=== PATIENT | male | born 1975 | race Two or more races ===

== ENCOUNTER 2022-10-18 11:44 | Inpatient (IN) | payer OTHER, MEDICAID ==
[~2022-10-18] VITALS: Ht 172.7 cm; Wt 77.1 kg
[2022-10-18 13:24] LABS: Basophils # (auto) 0.1 10 ^3/uL (0-0.2); Basophils % (auto) 0.2 % (0.0-2.0); Eosinophils # (auto) 0 10 ^3/uL (0-0.8); Eosinophils % (auto) 0.1 % (0.0-7.0); Hematocrit 47.2 % (41.0-53.0); Hemoglobin 15.9 g/dL (13.5-17.5); Lymphocytes # (auto) 1.4 10 ^3/uL (0.4-5.4); Lymphocytes % (auto) 5.9 % (10.0-50.0); Mean Corpuscular Hemoglobin 30.1 pg (28.0-32.0); Mean Corpuscular Hgb Conc. 33.6 g/dL (32.0-36.0); Mean Corpuscular Volume 89.6 fL (80.0-100.0); Monocytes # (auto) 1.5 10 ^3/uL (0-1.3); Monocytes % (auto) 6.4 % (0.0-12.0); Neutrophils # (auto) 20.6 10 ^3/uL (1.6-8.6); Neutrophils % (auto) 87.4 % (37.0-80.0); Nucleated Red Blood Cells % 0.1 %; Red Blood Cells 5.27 10^6/uL (4.5-5.90); Red Cell Distribution Width 13.7 % (11.8-14.3); White Blood Cell 23.6 10^3/uL (4.4-10.8)
[2022-10-18 13:36] LABS: Calcium 9.4 mg/dL (8.5-10.1); Potassium 4.2 mmol/L (3.5-5.1)
[2022-10-18 13:40] LABS: BUN/Creatinine Ratio 22.6 (10.0-20.0); Bilirubin, Total 0.5 mg/dL (0.2-1.0); Total Protein 7.4 g/dL (6.4-8.2)
[2022-10-18] MEDS ORDERED: cefTRIAXone 1GM/50ML D5W 50 ML IV ONE (15:45)
[2022-10-18] MEDS ORDERED: SODIUM CHLORIDE 0.9% 1,000 ML IV ONE (15:45)
[2022-10-18] MEDS: SODIUM CHLORIDE 0.9% 1,000 ML IV SCH (16:00)
[2022-10-18] MEDS ORDERED: NITROGLYCERIN 0.4 MG SL TAB SL PRN (16:00)
[2022-10-18] MEDS ORDERED: PANTOPRAZOLE 40 MG/10 ML VIAL INJ IV ONE (16:00)
[2022-10-18] MEDS ORDERED: ACETAMINOPHEN 325 MG TAB PO PRN (16:00)
[2022-10-18] MEDS ORDERED: ONDANSETRON HCL 4 MG/2 ML VIAL IV PRN (16:00)
[2022-10-18] MEDS ORDERED: MORPHINE SULFATE INJ 2 MG/ml SYRG IV PRN (16:00)
[2022-10-18] MEDS ORDERED: ALBUTEROL SULF 2.5 MG/0.5ML(0.5%) NEB SOLN NEB PRN (16:15)
[2022-10-18 17:31] LABS: Urine Amorphous Crystal FEW /hpf (None Seen); Urine Bacteria NONE SEEN /hpf (None Seen); Urine Blood Negative /uL (Negative); Urine Mucus FEW (None Seen); Urine Specific Gravity 1.021 (1.001-1.035); Urine WBC <1 /hpf (0 - 3)
[2022-10-18] MEDS: IPRATROPIUM BROM 0.5 MG/2.5ML INH SOL NEB SCH ×2 (17:43→22:15)
[2022-10-18] MEDS: ALBUTEROL SULF 2.5 MG/0.5ML(0.5%) NEB SOLN NEB SCH ×2 (17:43→22:15)
[2022-10-19] MEDS: ALBUTEROL SULF 2.5 MG/0.5ML(0.5%) NEB SOLN NEB SCH ×6 (01:54→22:33)
[2022-10-19] MEDS: IPRATROPIUM BROM 0.5 MG/2.5ML INH SOL NEB SCH ×6 (01:54→22:33)
[2022-10-19] MEDS: SODIUM CHLORIDE 0.9% 1,000 ML IV SCH ×2 (05:24→18:40)
[2022-10-19 05:59] LABS: Basophils # (auto) 0 10 ^3/uL (0-0.2); Basophils % (auto) 0.1 % (0.0-2.0); Eosinophils # (auto) 0 10 ^3/uL (0-0.8); Hematocrit 46.3 % (41.0-53.0); Hemoglobin 14.9 g/dL (13.5-17.5); Lymphocytes # (auto) 1.7 10 ^3/uL (0.4-5.4); Lymphocytes % (auto) 7.1 % (10.0-50.0); Mean Corpuscular Hemoglobin 30.5 pg (28.0-32.0); Mean Corpuscular Hgb Conc. 32.1 g/dL (32.0-36.0); Mean Corpuscular Volume 94.8 fL (80.0-100.0); Monocytes % (auto) 8.7 % (0.0-12.0); Neutrophils # (auto) 19.9 10 ^3/uL (1.6-8.6); Neutrophils % (auto) 84.1 % (37.0-80.0); Nucleated Red Blood Cells % 0.1 %; Red Blood Cells 4.89 10^6/uL (4.5-5.90); Red Cell Distribution Width 14.5 % (11.8-14.3); White Blood Cell 23.6 10^3/uL (4.4-10.8)
[2022-10-19 07:55] LABS: Potassium 4.2 mmol/L (3.5-5.1)
[2022-10-19 08:07] LABS: Albumin 3.2 g/dL (3.4-5.0); Bilirubin, Total 0.8 mg/dL (0.2-1.0); Calcium 8.6 mg/dL (8.5-10.1); Total Protein 6.6 g/dL (6.4-8.2)
[2022-10-19] MEDS: cefTRIAXone 1GM/50ML D5W 50 ML IV SCH (09:19)
[2022-10-19] MEDS: ENOXAPARIN SOD 40 MG/0.4 ML SYRINGE SC SCH (11:08)
[2022-10-19] MEDS: PANTOPRAZOLE 40 MG/10 ML VIAL INJ IV SCH (11:08)
[2022-10-19 11:49] VITALS: BP 103/67
[2022-10-19] MEDS ORDERED: CLINIMIX PER PHARMACY 0 ML IV SCH (14:45)
[2022-10-19 16:37] LABS: Magnesium 2.2 mg/dL (1.6-2.6); Phosphorus 2.7 mg/dL (2.5-4.90)
[2022-10-19] MEDS: AMINO ACID INFUSION IN D10W 1,000 ML IV NR (20:07)
[2022-10-19 22:30] VITALS: BP 103/66
[2022-10-19] MEDS: ACCU-CHEK COMFORT CURVE STRIP VI SCH (23:37)
[2022-10-19] MEDS: InsuLIN REG 1unit/0.01ml Soln (100units/ml) SC SCH (23:37)
[2022-10-19 23:45] VITALS: BP 103/66
[2022-10-20] MEDS ORDERED: DEXTROSE (50%) 50ML SYRG IV SCH
[2022-10-20] MEDS: IPRATROPIUM BROM 0.5 MG/2.5ML INH SOL NEB SCH ×6 (02:16→22:15)
[2022-10-20] MEDS: ALBUTEROL SULF 2.5 MG/0.5ML(0.5%) NEB SOLN NEB SCH ×6 (02:18→22:16)
[2022-10-20 05:00] VITALS: BP 108/64
[2022-10-20] MEDS: ACCU-CHEK COMFORT CURVE STRIP VI SCH ×4 (05:42→23:27)
[2022-10-20] MEDS: InsuLIN REG 1unit/0.01ml Soln (100units/ml) SC SCH ×4 (05:43→23:26)
[2022-10-20 05:49] LABS: Albumin 2.8 g/dL (3.4-5.0); Calcium 8.4 mg/dL (8.5-10.1); Potassium 3.3 mmol/L (3.5-5.1)
[2022-10-20 05:52] LABS: BUN/Creatinine Ratio 38.2 (10.0-20.0)
[2022-10-20 05:55] LABS: Bilirubin, Total 0.7 mg/dL (0.2-1.0); Total Protein 6.3 g/dL (6.4-8.2)
[2022-10-20 08:00] VITALS: BP 106/72
[2022-10-20 09:00] VITALS: BP 106/72
[2022-10-20] MEDS ORDERED: APIX2.5T PEG (09:06)
[2022-10-20] MEDS: ENOXAPARIN SOD 40 MG/0.4 ML SYRINGE SC SCH (09:06)
[2022-10-20] MEDS: PANTOPRAZOLE 40 MG/10 ML VIAL INJ IV SCH (09:06)
[2022-10-20] MEDS: SODIUM CHLORIDE 0.9% 1,000 ML IV SCH ×2 (09:06→21:20)
[2022-10-20] MEDS: cefTRIAXone 1GM/50ML D5W 50 ML IV SCH (09:06)
[2022-10-20] MEDS ORDERED: POTASSIUM PHOSPHATE 44 MEQ in D5W 5% 250 ML IV ONE (12:00)
[2022-10-20] MEDS ORDERED: SERT-375 GT (12:59)
[2022-10-20] MEDS ORDERED: PROP60CA34 GT (12:59)
[2022-10-20] MEDS ORDERED: DIVA250T12 PO (12:59)
[2022-10-20] MEDS ORDERED: PROM25TA5 PO (12:59)
[2022-10-20] MEDS ORDERED: HAL5T GT (12:59)
[2022-10-20] MEDS ORDERED: PROP60CA34 PO (12:59)
[2022-10-20 13:00] VITALS: BP 121/75
[2022-10-20] MEDS ORDERED: TETR25TA2 GT (13:00)
[2022-10-20 17:00] VITALS: BP 121/81
[2022-10-20] MEDS ORDERED: HALOPERIDOL 1 MG TAB PO PRN (17:00)
[2022-10-20] MEDS ORDERED: PROMETHAZINE HCL 6.25 MG/5 ML ORAL SYRUP PO PRN (17:00)
[2022-10-20] MEDS ORDERED: SERTRALINE HCL 50 MG TAB PO SCH (17:02)
[2022-10-20] MEDS ORDERED: ACETAMINOPHEN 650 mg PER 20.3 mL UD GT PRN (18:00)
[2022-10-20] MEDS ORDERED: PROMETHAZINE HCL 6.25 MG/5 ML ORAL SYRUP GT PRN (18:00)
[2022-10-20] MEDS ORDERED: HALOPERIDOL 1 MG TAB GT PRN (18:00)
[2022-10-20] MEDS: AMINO ACID INFUSION IN D10W 1,000 ML IV NR (20:10)
[2022-10-20 22:00] VITALS: BP 123/81
[2022-10-20] MEDS ORDERED: APIXABAN 5 MG TAB GT SCH (22:00)
[2022-10-20] MEDS: VALPROIC ACID 250 MG/5 ML ORAL SOLN GT SCH (22:00)
[2022-10-20] MEDS: APIXABAN 5 MG TAB GT SCH (22:00)
[2022-10-20] MEDS ORDERED: PROPRANOLOL HCL 20 MG TAB GT SCH (22:00)
[2022-10-20] MEDS: PROPRANOLOL HCL 20 MG TAB GT SCH (23:30)
[2022-10-21 05:00] VITALS: BP 107/75
[2022-10-21] MEDS: ACCU-CHEK COMFORT CURVE STRIP VI SCH ×4 (05:49→23:40)
[2022-10-21] MEDS: InsuLIN REG 1unit/0.01ml Soln (100units/ml) SC SCH ×4 (05:50→23:40)
[2022-10-21] MEDS: IPRATROPIUM BROM 0.5 MG/2.5ML INH SOL NEB SCH ×5 (06:24→22:04)
[2022-10-21] MEDS: ALBUTEROL SULF 2.5 MG/0.5ML(0.5%) NEB SOLN NEB SCH ×5 (06:24→22:04)
[2022-10-21 06:58] LABS: Potassium 3.4 mmol/L (3.5-5.1)
[2022-10-21 07:10] LABS: BUN/Creatinine Ratio 28.6 (10.0-20.0); Bilirubin, Total 0.7 mg/dL (0.2-1.0); Calcium 8.6 mg/dL (8.5-10.1); Magnesium 2.1 mg/dL (1.6-2.6); Phosphorus 2.4 mg/dL (2.5-4.90); Total Protein 6.6 g/dL (6.4-8.2)
[2022-10-21 09:00] VITALS: BP 118/77
[2022-10-21] MEDS: cefTRIAXone 1GM/50ML D5W 50 ML IV SCH (10:24)
[2022-10-21] MEDS: SODIUM CHLORIDE 0.9% 1,000 ML IV SCH (10:40)
[2022-10-21] MEDS: PROPRANOLOL HCL 20 MG TAB GT SCH ×2 (11:28→21:21)
[2022-10-21] MEDS: VALPROIC ACID 250 MG/5 ML ORAL SOLN GT SCH ×2 (11:28→21:20)
[2022-10-21] MEDS: PANTOPRAZOLE 40 MG/10 ML VIAL INJ IV SCH (11:28)
[2022-10-21] MEDS: SERTRALINE HCL 50 MG TAB GT SCH (11:29)
[2022-10-21] MEDS: APIXABAN 5 MG TAB GT SCH ×2 (11:29→21:20)
[2022-10-21] MEDS ORDERED: POTASSIUM PHOSPHATE 44 MEQ in D5W 5% 250 ML IV ONE (11:30)
[2022-10-21] MEDS: AZITHROMYCIN 500MG/ 250ML 250 ML IV SCH (12:00)
[2022-10-21 12:48] LABS: Basophils # (auto) 0.1 10 ^3/uL (0-0.2); Eosinophils # (auto) 0.1 10 ^3/uL (0-0.8); Eosinophils % (auto) 1.3 % (0.0-7.0); Hematocrit 37.6 % (41.0-53.0); Hemoglobin 12.5 g/dL (13.5-17.5); Lymphocytes # (auto) 1.8 10 ^3/uL (0.4-5.4); Lymphocytes % (auto) 22.3 % (10.0-50.0); Mean Corpuscular Hgb Conc. 33.3 g/dL (32.0-36.0); Mean Corpuscular Volume 90.2 fL (80.0-100.0); Monocytes # (auto) 0.9 10 ^3/uL (0-1.3); Monocytes % (auto) 11.8 % (0.0-12.0); Neutrophils % (auto) 63.6 % (37.0-80.0); Nucleated Red Blood Cells % 0.1 %; Red Blood Cells 4.17 10^6/uL (4.5-5.90); Red Cell Distribution Width 13.1 % (11.8-14.3); White Blood Cell 7.9 10^3/uL (4.4-10.8)
[2022-10-21 13:15] VITALS: BP 157/44
[2022-10-21 17:10] VITALS: BP 133/86
[2022-10-21] MEDS: AMINO ACID INFUSION IN D10W 1,000 ML IV NR (19:13)
[2022-10-21 21:31] VITALS: BP 122/74
[2022-10-22 04:00] VITALS: BP 129/92
[2022-10-22 05:00] VITALS: BP 126/72
[2022-10-22] MEDS: InsuLIN REG 1unit/0.01ml Soln (100units/ml) SC SCH ×3 (05:39→18:00)
[2022-10-22] MEDS: ACCU-CHEK COMFORT CURVE STRIP VI SCH (05:39)
[2022-10-22 06:08] LABS: Basophils # (auto) 0 10 ^3/uL (0-0.2); Basophils % (auto) 0.3 % (0.0-2.0); Eosinophils # (auto) 0.1 10 ^3/uL (0-0.8); Eosinophils % (auto) 1.3 % (0.0-7.0); Hemoglobin 13.5 g/dL (13.5-17.5); Lymphocytes # (auto) 1.8 10 ^3/uL (0.4-5.4); Lymphocytes % (auto) 25.3 % (10.0-50.0); Mean Corpuscular Hemoglobin 30.6 pg (28.0-32.0); Mean Corpuscular Hgb Conc. 33.7 g/dL (32.0-36.0); Mean Corpuscular Volume 90.9 fL (80.0-100.0); Monocytes # (auto) 0.9 10 ^3/uL (0-1.3); Monocytes % (auto) 11.8 % (0.0-12.0); Neutrophils # (auto) 4.5 10 ^3/uL (1.6-8.6); Neutrophils % (auto) 61.3 % (37.0-80.0); Nucleated Red Blood Cells % 0.1 %; Red Cell Distribution Width 12.8 % (11.8-14.3); White Blood Cell 7.3 10^3/uL (4.4-10.8)
[2022-10-22 06:38] LABS: Albumin 2.8 g/dL (3.4-5.0); Calcium 8.1 mg/dL (8.5-10.1); Magnesium 2.1 mg/dL (1.6-2.6); Potassium 3.5 mmol/L (3.5-5.1)
[2022-10-22 06:41] LABS: Phosphorus 2.6 mg/dL (2.5-4.90)
[2022-10-22] MEDS: IPRATROPIUM BROM 0.5 MG/2.5ML INH SOL NEB SCH ×5 (07:19→22:24)
[2022-10-22] MEDS: ALBUTEROL SULF 2.5 MG/0.5ML(0.5%) NEB SOLN NEB SCH ×5 (07:19→22:24)
[2022-10-22 08:20] VITALS: BP 103/72
[2022-10-22] MEDS: cefTRIAXone 1GM/50ML D5W 50 ML IV SCH (09:21)
[2022-10-22] MEDS: VALPROIC ACID 250 MG/5 ML ORAL SOLN GT SCH ×2 (09:21→21:52)
[2022-10-22] MEDS: SERTRALINE HCL 50 MG TAB GT SCH (09:22)
[2022-10-22] MEDS: PANTOPRAZOLE 40 MG/10 ML VIAL INJ IV SCH (09:22)
[2022-10-22] MEDS: PROPRANOLOL HCL 20 MG TAB GT SCH ×2 (09:23→21:58)
[2022-10-22] MEDS: APIXABAN 5 MG TAB GT SCH ×2 (09:23→21:54)
[2022-10-22] MEDS: AZITHROMYCIN 500MG/ 250ML 250 ML IV SCH (09:23)
[2022-10-22 12:10] VITALS: BP 118/77
[2022-10-22] MEDS ORDERED: POTASSIUM PHOSPHATE 44 MEQ in D5W 5% 250 ML IV ONE (12:30)
[2022-10-22] MEDS: SODIUM CHLORIDE 0.9% 1,000 ML IV SCH ×2 (13:40)
[2022-10-22 15:26] VITALS: BP 118/77
[2022-10-22 15:33] LABS: Folate (Folic Acid) 21.44 ng/mL (5.38-24)
[2022-10-22 16:05] VITALS: BP 107/66
[2022-10-22] MEDS: AMINO ACID INFUSION IN D10W 1,000 ML IV NR ×3 (19:27→21:00)
[2022-10-23] MEDS: ACCU-CHEK COMFORT CURVE STRIP VI SCH ×6 (00:14→18:34)
[2022-10-23] MEDS: SODIUM CHLORIDE 0.9% 1,000 ML IV SCH ×2 (02:40→18:33)
[2022-10-23] MEDS: InsuLIN REG 1unit/0.01ml Soln (100units/ml) SC SCH ×4 (05:44→18:00)
[2022-10-23] MEDS: IPRATROPIUM BROM 0.5 MG/2.5ML INH SOL NEB SCH ×5 (05:57→22:06)
[2022-10-23] MEDS: ALBUTEROL SULF 2.5 MG/0.5ML(0.5%) NEB SOLN NEB SCH ×5 (05:57→22:06)
[2022-10-23 06:32] LABS: Basophils # (auto) 0 10 ^3/uL (0-0.2); Basophils % (auto) 0.6 % (0.0-2.0); Eosinophils # (auto) 0.2 10 ^3/uL (0-0.8); Eosinophils % (auto) 2.6 % (0.0-7.0); Hemoglobin 12.9 g/dL (13.5-17.5); Lymphocytes # (auto) 2.1 10 ^3/uL (0.4-5.4); Lymphocytes % (auto) 33.7 % (10.0-50.0); Mean Corpuscular Hemoglobin 29.9 pg (28.0-32.0); Mean Corpuscular Hgb Conc. 33.1 g/dL (32.0-36.0); Mean Corpuscular Volume 90.4 fL (80.0-100.0); Monocytes # (auto) 0.9 10 ^3/uL (0-1.3); Monocytes % (auto) 15.2 % (0.0-12.0); Neutrophils % (auto) 47.9 % (37.0-80.0); Nucleated Red Blood Cells % 0.1 %; Red Blood Cells 4.31 10^6/uL (4.5-5.90); White Blood Cell 6.2 10^3/uL (4.4-10.8)
[2022-10-23 06:48] LABS: Albumin 2.7 g/dL (3.4-5.0); Calcium 8.3 mg/dL (8.5-10.1); Potassium 3.3 mmol/L (3.5-5.1)
[2022-10-23 06:51] LABS: BUN/Creatinine Ratio 23.3 (10.0-20.0); Bilirubin, Total 0.6 mg/dL (0.2-1.0); Phosphorus 2.3 mg/dL (2.5-4.90); Total Protein 6.3 g/dL (6.4-8.2)
[2022-10-23 09:00] VITALS: BP 135/72
[2022-10-23] MEDS: PANTOPRAZOLE 40 MG/10 ML VIAL INJ IV SCH (10:07)
[2022-10-23] MEDS: VALPROIC ACID 250 MG/5 ML ORAL SOLN GT SCH ×2 (10:07→21:10)
[2022-10-23] MEDS: cefTRIAXone 1GM/50ML D5W 50 ML IV SCH (10:08)
[2022-10-23] MEDS: AZITHROMYCIN 500MG/ 250ML 250 ML IV SCH (10:09)
[2022-10-23] MEDS: SERTRALINE HCL 50 MG TAB GT SCH (10:09)
[2022-10-23] MEDS: APIXABAN 5 MG TAB GT SCH ×2 (10:10→21:10)
[2022-10-23] MEDS: PROPRANOLOL HCL 20 MG TAB GT SCH ×2 (10:10→21:18)
[2022-10-23 13:00] VITALS: BP 111/71
[2022-10-23] MEDS ORDERED: POTASSIUM PHOSPHATE 44 MEQ in D5W 5% 250 ML IV ONE (13:45)
[2022-10-23 17:00] VITALS: BP 124/76
[2022-10-23] MEDS: AMINO ACID INFUSION IN D10W 1,000 ML IV NR (19:35)
[2022-10-23 22:00] VITALS: BP 141/77
[2022-10-24] MEDS: ACCU-CHEK COMFORT CURVE STRIP VI SCH ×3 (00:42→12:44)
[2022-10-24 05:00] VITALS: BP 119/83
[2022-10-24] MEDS: InsuLIN REG 1unit/0.01ml Soln (100units/ml) SC SCH ×3 (05:24→12:00)
[2022-10-24] MEDS: SODIUM CHLORIDE 0.9% 1,000 ML IV SCH (05:41)
[2022-10-24 06:06] LABS: Albumin 3.1 g/dL (3.4-5.0); Calcium 8.8 mg/dL (8.5-10.1); Magnesium 1.9 mg/dL (1.6-2.6); Potassium 3.4 mmol/L (3.5-5.1)
[2022-10-24 06:08] LABS: BUN/Creatinine Ratio 21.4 (10.0-20.0); Phosphorus 2.6 mg/dL (2.5-4.90)
[2022-10-24] MEDS: IPRATROPIUM BROM 0.5 MG/2.5ML INH SOL NEB SCH ×5 (06:42→22:00)
[2022-10-24] MEDS: ALBUTEROL SULF 2.5 MG/0.5ML(0.5%) NEB SOLN NEB SCH ×5 (06:43→22:00)
[2022-10-24 09:00] VITALS: BP 119/62
[2022-10-24] MEDS ORDERED: Jevity 1.2 Cal/Fiber 1 Liter GT SCH (09:30)
[2022-10-24] MEDS: cefTRIAXone 1GM/50ML D5W 50 ML IV SCH (10:35)
[2022-10-24] MEDS: PROPRANOLOL HCL 20 MG TAB GT SCH ×2 (10:35→22:14)
[2022-10-24] MEDS: AZITHROMYCIN 500MG/ 250ML 250 ML IV SCH (10:37)
[2022-10-24] MEDS: VALPROIC ACID 250 MG/5 ML ORAL SOLN GT SCH ×2 (10:37→22:11)
[2022-10-24] MEDS: PANTOPRAZOLE 40 MG/10 ML VIAL INJ IV SCH (10:37)
[2022-10-24] MEDS: APIXABAN 5 MG TAB GT SCH ×2 (10:37→22:12)
[2022-10-24] MEDS: SERTRALINE HCL 50 MG TAB GT SCH (10:37)
[2022-10-24] MEDS: FREE WATER GT SCH ×2 (12:43→17:45)
[2022-10-24 13:00] VITALS: BP 116/75
[2022-10-24 17:00] VITALS: BP 116/76
[2022-10-24] MEDS: AMINO ACID INFUSION IN D10W 1,000 ML IV NR (19:38)
[2022-10-24 22:00] VITALS: BP 126/76
[2022-10-25] MEDS: FREE WATER GT SCH ×3 (01:23→12:02)
[2022-10-25 05:00] VITALS: BP 109/74
[2022-10-25] MEDS: ALBUTEROL SULF 2.5 MG/0.5ML(0.5%) NEB SOLN NEB SCH ×4 (07:06→15:00)
[2022-10-25] MEDS: IPRATROPIUM BROM 0.5 MG/2.5ML INH SOL NEB SCH ×4 (07:06→15:00)
[2022-10-25] MEDS: cefTRIAXone 1GM/50ML D5W 50 ML IV SCH (08:52)
[2022-10-25 09:00] VITALS: BP 110/79
[2022-10-25] MEDS: VALPROIC ACID 250 MG/5 ML ORAL SOLN GT SCH (09:54)
[2022-10-25] MEDS: SERTRALINE HCL 50 MG TAB GT SCH (09:54)
[2022-10-25] MEDS: PANTOPRAZOLE 40 MG/10 ML VIAL INJ IV SCH (09:54)
[2022-10-25] MEDS: AZITHROMYCIN 500MG/ 250ML 250 ML IV SCH (09:54)
[2022-10-25] MEDS: APIXABAN 5 MG TAB GT SCH (09:54)
[2022-10-25] MEDS: PROPRANOLOL HCL 20 MG TAB GT SCH (09:55)
[2022-10-25] MEDS ORDERED: AZIT250T8 PO (11:00)
[2022-10-25 13:00] VITALS: BP_SYST 110; BP_SYST 99; BP_DIAS 67; BP_DIAS 79
== END 2022-10-25 15:15 | disposition home health service (06) | DRG 871 ==
LOC: ER 11:44 → EDBD 11:44 → TELE 16:06 → TELE-CENTR 10-19 22:30
PROVIDERS: ADMIT Nurse Practitioner Family; ATTEND Nurse Practitioner Acute Care
DX: A41.9 Sepsis, unspecified organism (principal); E43 Unspecified severe protein-calorie malnutrition; G93.41 Metabolic encephalopathy; J15.6 Pneumonia due to other Gram-negative bacteria; G10 Huntington's disease; K92.2 Gastrointestinal hemorrhage, unspecified; E87.6 Hypokalemia; Z68.25 Body mass index [BMI] 25.0-25.9, adult
CPT/HCPCS: 36415; 71045; 74176; 80053; 80069; 80164; 81001; 82306; 82607; 82746; 82962; 83605; 83735; 83880; 84100; 85025; 87040; 87081; 87086; 87088; 87186; 93005; 94640; 96365; 96372; 96375; C9113; G0378; J0696; J2405; J7060

== ENCOUNTER 2022-11-06 07:57 | Inpatient (IN) | payer OTHER, MEDICAID ==
[2022-11-06] VITALS (54 sets, daily range): BP systolic 83–140; BP diastolic 54–81
[~2022-11-06] VITALS: Ht 172.7 cm; Wt 67.0 kg
[~2022-11-06 07:57] MED LIST: APIX2.5T PEG; AZIT-81 PO; DIVA250T12 PO; HAL5T GT; PROM25TA10 PO; PROP60CA34 GT; PROP60CA34 PO; SERT-375 GT; TETR25TA GT
[2022-11-06] MEDS ORDERED: ETOMIDATE (2MG/ML) 20ML VIAL IV ONE ×3 (08:26→08:45)
[2022-11-06] MEDS ORDERED: SUCCINYLCHOLINE CHLORIDE 20 MG/ML 10ML VIAL IV ONE ×2 (08:27→08:45)
[2022-11-06] MEDS ORDERED: MIDAZOLAM DRIP 50 mg/50mL 50 ML IV ONE (08:39)
[2022-11-06] MEDS: MIDAZOLAM DRIP 50 mg/50mL 50 ML IV SCH ×2 (08:40→16:18)
[2022-11-06] MEDS ORDERED: SODIUM CHLORIDE 0.9% 1,000 ML IV ONE ×2 (08:45)
[2022-11-06] MEDS ORDERED: PIPERACILLIN-TAZOB 3.375GM 100 ML IV ONE (08:45)
[2022-11-06] MEDS ORDERED: SODIUM CHLORIDE 0.9% 2,300 ML IV ONE (08:45)
[2022-11-06] MEDS ORDERED: AZITHROMYCIN 500MG/ 250ML 250 ML IV ONE (08:45)
[2022-11-06] MEDS ORDERED: fentaNYL Drip 2500mCg/250mlNS 250 ML IV ONE (08:53)
[2022-11-06] MEDS: fentaNYL Drip 2500mCg/250mlNS 250 ML IV SCH (08:59)
[2022-11-06 09:04] LABS: Hematocrit 44.4 % (41.0-53.0); Hemoglobin 15.4 g/dL (13.5-17.5); Mean Corpuscular Hemoglobin 30.6 pg (28.0-32.0); Mean Corpuscular Hgb Conc. 34.7 g/dL (32.0-36.0); Mean Corpuscular Volume 88.1 fL (80.0-100.0); Red Blood Cells 5.05 10^6/uL (4.5-5.90); Red Cell Distribution Width 13.6 % (11.8-14.3); White Blood Cell 25.9 10^3/uL (4.4-10.8)
[2022-11-06 09:07] LABS: Band Neutrophils % (manual) 0; Basophils % (manual) 0 (0.0-2.0); Blast Cells 0; Eosinophils % (manual) 0 (0-7); Metamyelocytes % 0; Myelocytes % 0; Promyelocytes % 0; Reactive Lymphocytes 0
[2022-11-06] MEDS ORDERED: IOHEXOL 350 MG/ML 100ML IJ ONE (09:07)
[2022-11-06 09:13] LABS: INR 1.04 (0.9-1.15); Partial Thromboplastin Time 26.9 sec (24.6-33.4)
[2022-11-06] MEDS ORDERED: ACETAMINOPHEN 650 MG RECT SUPP PR ONE (09:15)
[2022-11-06 09:16] LABS: Lymphocytes % (manual) 2 (10.0-50.0); Monocytes % (manual) 3 (0-12)
[2022-11-06 09:27] LABS: Albumin 3.8 g/dL (3.4-5.0); Potassium 3.8 mmol/L (3.5-5.1)
[2022-11-06 09:30] LABS: Bilirubin, Total 0.7 mg/dL (0.2-1.0); Total Protein 7.6 g/dL (6.4-8.2)
[2022-11-06 09:57] LABS: Urine Bacteria FEW /hpf (None Seen); Urine Blood Negative /uL (Negative); Urine Mucus FEW (None Seen); Urine Specific Gravity 1.024 (1.001-1.035); Urine WBC 2 /hpf (0 - 3)
[2022-11-06] MEDS ORDERED: PANTOPRAZOLE 80 MG in SODIUM CHL 0.9% 100 ML IV ONE (10:30)
[2022-11-06] MEDS ORDERED: PANTOPRAZOLE 40mg/50ML NS AE 50 ML IV SCH (10:30)
[2022-11-06] MEDS: NOREPINEPHRINE 8 MG/250ML KIT 250 ML IV SCH (12:00)
[2022-11-06] MEDS ORDERED: NOREPINEPHRINE 8 MG/250ML KIT 250 ML IV ONE (12:06)
[2022-11-06 12:21] LABS: Lactic Acid w/Reflex 2.7 mmol/L (0.4-2.0)
[2022-11-06] MEDS ORDERED: HALOPERIDOL 1 MG TAB GT PRN (12:45)
[2022-11-06] MEDS: metroNIDAZOLE 500MG/100ML 100 ML IV SCH ×2 (13:14→20:52)
[2022-11-06] MEDS ORDERED: PANTOPRAZOLE 40mg/50ML NS AE 50 ML IV ONE (13:15)
[2022-11-06] MEDS: OCTREOTIDE ACETATE 500 MCG in SODIUM CHL 0.9% 99 ML IV SCH ×2 (13:48→22:18)
[2022-11-06 14:07] LABS: Hematocrit 39.5 % (41.0-53.0); Hemoglobin 13.3 g/dL (13.5-17.5)
[2022-11-06] MEDS: CEFEPIME 1GM/ 50ML 50 ML IV SCH ×2 (16:07→22:12)
[2022-11-06] MEDS: PROPOFOL 100 ML IV SCH (17:49)
[2022-11-06] MEDS: PANTOPRAZOLE 40mg/50ML NS AE 50 ML IV SCH (19:15)
[2022-11-06 21:18] LABS: Hematocrit 37.2 % (41.0-53.0); Hemoglobin 12.6 g/dL (13.5-17.5)
[2022-11-06] MEDS: PROPRANOLOL HCL 20 MG TAB GT SCH (21:45)
[2022-11-06] MEDS: VALPROIC ACID 250 MG/5 ML ORAL SOLN GT SCH (21:49)
[2022-11-06] MEDS ORDERED: PATIENTS OWN MEDICATION (Divalproex Sodium 250 MG) PO SCH (22:00)
[2022-11-07] VITALS (105 sets, daily range): BP systolic 86–146; BP diastolic 54–87
[2022-11-07] MEDS: PANTOPRAZOLE 40mg/50ML NS AE 50 ML IV SCH ×4 (00:02→14:20)
[2022-11-07] MEDS: MIDAZOLAM DRIP 50 mg/50mL 50 ML IV SCH ×3 (01:10→18:43)
[2022-11-07] MEDS: fentaNYL Drip 2500mCg/250mlNS 250 ML IV SCH (02:08)
[2022-11-07 04:18] LABS: Basophils # (auto) 0.1 10 ^3/uL (0-0.2); Basophils % (auto) 0.7 % (0.0-2.0); Eosinophils # (auto) 0.1 10 ^3/uL (0-0.8); Eosinophils % (auto) 1.2 % (0.0-7.0); Hematocrit 37.1 % (41.0-53.0); Hemoglobin 12.8 g/dL (13.5-17.5); Lymphocytes # (auto) 2.3 10 ^3/uL (0.4-5.4); Lymphocytes % (auto) 19.1 % (10.0-50.0); Mean Corpuscular Hemoglobin 31.3 pg (28.0-32.0); Mean Corpuscular Hgb Conc. 34.5 g/dL (32.0-36.0); Mean Corpuscular Volume 90.8 fL (80.0-100.0); Monocytes # (auto) 1.3 10 ^3/uL (0-1.3); Monocytes % (auto) 10.9 % (0.0-12.0); Neutrophils # (auto) 8.1 10 ^3/uL (1.6-8.6); Neutrophils % (auto) 68.1 % (37.0-80.0); Nucleated Red Blood Cells % 0.1 %; Red Blood Cells 4.08 10^6/uL (4.5-5.90); Red Cell Distribution Width 13.9 % (11.8-14.3); White Blood Cell 11.9 10^3/uL (4.4-10.8)
[2022-11-07 04:29] LABS: Albumin 3.1 g/dL (3.4-5.0); Calcium 8.2 mg/dL (8.5-10.1); Potassium 3.8 mmol/L (3.5-5.1)
[2022-11-07 04:32] LABS: Total Protein 5.8 g/dL (6.4-8.2)
[2022-11-07] MEDS: metroNIDAZOLE 500MG/100ML 100 ML IV SCH ×3 (05:35→21:11)
[2022-11-07] MEDS: NOREPINEPHRINE 8 MG/250ML KIT 250 ML IV SCH (05:48)
[2022-11-07] MEDS: CEFEPIME 1GM/ 50ML 50 ML IV SCH (06:42)
[2022-11-07] MEDS: OCTREOTIDE ACETATE 500 MCG in SODIUM CHL 0.9% 99 ML IV SCH (08:05)
[2022-11-07] MEDS ORDERED: EPINEPHrine HCL 1 MG/10 ML SYRG ONE (08:45)
[2022-11-07] MEDS: SERTRALINE HCL 50 MG TAB GT SCH (10:00)
[2022-11-07] MEDS: PROPRANOLOL HCL 20 MG TAB GT SCH ×2 (10:00→22:00)
[2022-11-07] MEDS ORDERED: PATIENTS OWN MEDICATION (Propranolol Hcl (Inderal La) 1 CAP) PO SCH (10:00)
[2022-11-07] MEDS ORDERED: PATIENTS OWN MEDICATION (Propranolol Hcl (Inderal La) 1 CAP) GT SCH (10:00)
[2022-11-07] MEDS: VALPROIC ACID 250 MG/5 ML ORAL SOLN GT SCH ×2 (10:00→22:38)
[2022-11-07] MEDS ORDERED: SERTRALINE HCL 50 MG TAB PO SCH (10:00)
[2022-11-07 10:08] LABS: Hemoglobin 12.9 g/dL (13.5-17.5)
[2022-11-07] MEDS: PROPOFOL 100 ML IV SCH (13:15)
[2022-11-07] MEDS ORDERED: ACETAMINOPHEN 650 MG RECT SUPP PR ONE (13:45)
[2022-11-07] MEDS ORDERED: ROCURONIUM 10MG/ML 10ML VIAL IV ONE (16:56)
[2022-11-07] MEDS: PANTOPRAZOLE 40 MG/10 ML VIAL INJ IV SCH (22:26)
[2022-11-08] VITALS (104 sets, daily range): BP systolic 83–159; BP diastolic 2–137
[2022-11-08 04:26] LABS: Basophils # (auto) 0.1 10 ^3/uL (0-0.2); Basophils % (auto) 0.7 % (0.0-2.0); Eosinophils # (auto) 0.2 10 ^3/uL (0-0.8); Hematocrit 34.8 % (41.0-53.0); Hemoglobin 12.4 g/dL (13.5-17.5); Lymphocytes # (auto) 1.3 10 ^3/uL (0.4-5.4); Lymphocytes % (auto) 12.4 % (10.0-50.0); Mean Corpuscular Hemoglobin 32.3 pg (28.0-32.0); Mean Corpuscular Hgb Conc. 35.6 g/dL (32.0-36.0); Mean Corpuscular Volume 90.5 fL (80.0-100.0); Monocytes # (auto) 0.9 10 ^3/uL (0-1.3); Monocytes % (auto) 9.1 % (0.0-12.0); Neutrophils # (auto) 7.7 10 ^3/uL (1.6-8.6); Neutrophils % (auto) 75.8 % (37.0-80.0); Red Blood Cells 3.85 10^6/uL (4.5-5.90); White Blood Cell 10.2 10^3/uL (4.4-10.8)
[2022-11-08] MEDS: metroNIDAZOLE 500MG/100ML 100 ML IV SCH (05:20)
[2022-11-08 08:01] LABS: Potassium 3.4 mmol/L (3.5-5.1)
[2022-11-08 08:12] LABS: BUN/Creatinine Ratio 23.5 (10.0-20.0); Calcium 8.2 mg/dL (8.5-10.1)
[2022-11-08] MEDS: fentaNYL Drip 2500mCg/250mlNS 250 ML IV SCH ×2 (09:00→13:15)
[2022-11-08] MEDS: VALPROIC ACID 250 MG/5 ML ORAL SOLN GT SCH ×2 (09:35→21:32)
[2022-11-08] MEDS: PANTOPRAZOLE 40 MG/10 ML VIAL INJ IV SCH ×2 (09:35→21:32)
[2022-11-08] MEDS: PROPRANOLOL HCL 20 MG TAB GT SCH ×2 (09:35→21:48)
[2022-11-08] MEDS: SERTRALINE HCL 50 MG TAB GT SCH (09:36)
[2022-11-08] MEDS: ACETAMINOPHEN 650 mg PER 20.3 mL UD GT PRN (10:36)
[2022-11-08] MEDS ORDERED: VANCOMYCIN PER PHARMACY 0 MG IV SCH (11:30)
[2022-11-08] MEDS ORDERED: POTASSIUM CHL 20MEQ/100ML 100 ML IV ONE (11:45)
[2022-11-08] MEDS: NOREPINEPHRINE 8 MG/250ML KIT 250 ML IV SCH (12:00)
[2022-11-08] MEDS ORDERED: ERTAPENEM SOD INJ 1 GM in SODIUM CHL 0.9% 50 ML IV ONE (12:00)
[2022-11-08] MEDS ORDERED: VANCOMYCIN 1GM/250ML 250 ML IV ONE (12:30)
[2022-11-08] MEDS: PROPOFOL 100 ML IV SCH (13:15)
[2022-11-08] MEDS ORDERED: MEROPENEM 1GM IVPB 100 ML IV ONE (15:00)
[2022-11-08] MEDS: VANCOMYCIN 1GM/250ML 250 ML IV SCH (21:10)
[2022-11-08] MEDS: MEROPENEM 1GM IVPB 100 ML IV SCH (22:26)
[2022-11-09] VITALS (105 sets, daily range): BP systolic 81–134; BP diastolic 52–81
[2022-11-09 04:18] LABS: Basophils # (auto) 0.1 10 ^3/uL (0-0.2); Basophils % (auto) 0.8 % (0.0-2.0); Eosinophils # (auto) 0.2 10 ^3/uL (0-0.8); Eosinophils % (auto) 2.8 % (0.0-7.0); Hematocrit 33.9 % (41.0-53.0); Hemoglobin 11.8 g/dL (13.5-17.5); Lymphocytes # (auto) 1.2 10 ^3/uL (0.4-5.4); Mean Corpuscular Hemoglobin 31.3 pg (28.0-32.0); Mean Corpuscular Hgb Conc. 34.9 g/dL (32.0-36.0); Mean Corpuscular Volume 89.8 fL (80.0-100.0); Monocytes # (auto) 0.6 10 ^3/uL (0-1.3); Monocytes % (auto) 9.5 % (0.0-12.0); Neutrophils # (auto) 4.6 10 ^3/uL (1.6-8.6); Neutrophils % (auto) 68.9 % (37.0-80.0); Red Blood Cells 3.78 10^6/uL (4.5-5.90); Red Cell Distribution Width 13.7 % (11.8-14.3); White Blood Cell 6.7 10^3/uL (4.4-10.8)
[2022-11-09 04:45] LABS: Calcium 8.5 mg/dL (8.5-10.1)
[2022-11-09 04:47] LABS: BUN/Creatinine Ratio 47.6 (10.0-20.0)
[2022-11-09 04:59] LABS: Potassium 2.7 mmol/L (3.5-5.1)
[2022-11-09] MEDS: MIDAZOLAM DRIP 50 mg/50mL 50 ML IV SCH (05:23)
[2022-11-09] MEDS: MEROPENEM 1GM IVPB 100 ML IV SCH ×3 (05:25→22:29)
[2022-11-09] MEDS: POTASSIUM CHL 20MEQ/100ML 100 ML IV SCH ×3 (06:18→09:30)
[2022-11-09] MEDS: VANCOMYCIN 1GM/250ML 250 ML IV SCH ×2 (08:35→22:22)
[2022-11-09] MEDS: PANTOPRAZOLE 40 MG/10 ML VIAL INJ IV SCH ×2 (09:30→22:30)
[2022-11-09] MEDS: VALPROIC ACID 250 MG/5 ML ORAL SOLN GT SCH ×2 (09:30→22:29)
[2022-11-09] MEDS: PROPRANOLOL HCL 20 MG TAB GT SCH ×2 (09:31→22:00)
[2022-11-09] MEDS: SERTRALINE HCL 50 MG TAB GT SCH (10:00)
[2022-11-09] MEDS ORDERED: ERTAPENEM SOD INJ 1 GM in SODIUM CHL 0.9% 50 ML IV SCH (10:00)
[2022-11-09] MEDS: NOREPINEPHRINE 8 MG/250ML KIT 250 ML IV SCH (12:00)
[2022-11-09] MEDS: SODIUM CHLORIDE 0.9% 1,000 ML IV SCH ×2 (13:04→23:10)
[2022-11-09] MEDS: PROPOFOL 100 ML IV SCH (13:15)
[2022-11-10] VITALS (97 sets, daily range): BP systolic 82–156; BP diastolic 48–84
[2022-11-10] MEDS: fentaNYL Drip 2500mCg/250mlNS 250 ML IV SCH (01:42)
[2022-11-10 04:02] LABS: Basophils # (auto) 0 10 ^3/uL (0-0.2); Basophils % (auto) 0.8 % (0.0-2.0); Eosinophils # (auto) 0.2 10 ^3/uL (0-0.8); Eosinophils % (auto) 4.1 % (0.0-7.0); Hemoglobin 11.4 g/dL (13.5-17.5); Lymphocytes # (auto) 1.1 10 ^3/uL (0.4-5.4); Lymphocytes % (auto) 20.4 % (10.0-50.0); Mean Corpuscular Hemoglobin 31.1 pg (28.0-32.0); Mean Corpuscular Hgb Conc. 34.5 g/dL (32.0-36.0); Mean Corpuscular Volume 90.2 fL (80.0-100.0); Monocytes # (auto) 0.6 10 ^3/uL (0-1.3); Monocytes % (auto) 11.8 % (0.0-12.0); Neutrophils # (auto) 3.3 10 ^3/uL (1.6-8.6); Neutrophils % (auto) 62.9 % (37.0-80.0); Nucleated Red Blood Cells % 0.1 %; Red Blood Cells 3.66 10^6/uL (4.5-5.90); Red Cell Distribution Width 13.7 % (11.8-14.3); White Blood Cell 5.2 10^3/uL (4.4-10.8)
[2022-11-10 04:10] LABS: Calcium 7.7 mg/dL (8.5-10.1); Potassium 3.3 mmol/L (3.5-5.1)
[2022-11-10 04:12] LABS: BUN/Creatinine Ratio 42.1 (10.0-20.0)
[2022-11-10] MEDS: MEROPENEM 1GM IVPB 100 ML IV SCH ×3 (06:10→22:11)
[2022-11-10] MEDS: MIDAZOLAM DRIP 50 mg/50mL 50 ML IV SCH ×2 (08:45→14:25)
[2022-11-10] MEDS ORDERED: POTASSIUM CHL 20MEQ/100ML 100 ML IV SCH (09:45)
[2022-11-10] MEDS: VANCOMYCIN 1GM/250ML 250 ML IV SCH ×2 (09:56→17:43)
[2022-11-10] MEDS: SERTRALINE HCL 50 MG TAB GT SCH (09:56)
[2022-11-10] MEDS: PANTOPRAZOLE 40 MG/10 ML VIAL INJ IV SCH ×2 (09:56→22:11)
[2022-11-10] MEDS: VALPROIC ACID 250 MG/5 ML ORAL SOLN GT SCH ×2 (09:57→22:09)
[2022-11-10 09:58] LABS: Magnesium 1.8 mg/dL (1.6-2.6)
[2022-11-10 10:00] LABS: Phosphorus 2.4 mg/dL (2.5-4.90)
[2022-11-10] MEDS: PROPRANOLOL HCL 20 MG TAB GT SCH ×2 (10:00→22:00)
[2022-11-10] MEDS ORDERED: POTASSIUM PHOSPHATE 22 MEQ in SODIUM CHL 0.9% 100 ML IV ONE (10:30)
[2022-11-10] MEDS: SODIUM CHLORIDE 0.9% 1,000 ML IV SCH ×3 (10:52→19:50)
[2022-11-10] MEDS: MAGNESIUM SULFATE 1GM/100ML 100 ML IV SCH ×2 (11:33→12:41)
[2022-11-10] MEDS: NOREPINEPHRINE 8 MG/250ML KIT 250 ML IV SCH (12:00)
[2022-11-10] MEDS: PROPOFOL 100 ML IV SCH (13:15)
[2022-11-11] VITALS (104 sets, daily range): BP systolic 83–150; BP diastolic 54–100
[2022-11-11] MEDS: VANCOMYCIN 1GM/250ML 250 ML IV SCH ×4 (02:06→23:35)
[2022-11-11] MEDS: SODIUM CHLORIDE 0.9% 1,000 ML IV SCH ×3 (04:10→19:36)
[2022-11-11 04:28] LABS: Anion Gap 4 (5-15); Blood Urea Nitrogen 3 mg/dL (7-18); Calcium 7.7 mg/dL (8.5-10.1); Carbon Dioxide 24 mmol/L (21-32); Chloride 109 mmol/L (98-107); Glucose 98 mg/dL (74-106); Magnesium 1.8 mg/dL (1.6-2.6); Sodium 137 mmol/L (136-145)
[2022-11-11 04:29] LABS: Basophils # (auto) 0 10 ^3/uL (0-0.2); Basophils % (auto) 0.8 % (0.0-2.0); Eosinophils # (auto) 0.3 10 ^3/uL (0-0.8); Eosinophils % (auto) 5.5 % (0.0-7.0); Hematocrit 29.4 % (41.0-53.0); Hemoglobin 10.2 g/dL (13.5-17.5); Lymphocytes # (auto) 1.4 10 ^3/uL (0.4-5.4); Lymphocytes % (auto) 30.4 % (10.0-50.0); Mean Corpuscular Hemoglobin 31.2 pg (28.0-32.0); Mean Corpuscular Hgb Conc. 34.8 g/dL (32.0-36.0); Mean Corpuscular Volume 89.8 fL (80.0-100.0); Monocytes # (auto) 0.5 10 ^3/uL (0-1.3); Monocytes % (auto) 11.4 % (0.0-12.0); Neutrophils # (auto) 2.4 10 ^3/uL (1.6-8.6); Neutrophils % (auto) 51.9 % (37.0-80.0); Nucleated Red Blood Cells % 0.1 %; Red Blood Cells 3.28 10^6/uL (4.5-5.90); Red Cell Distribution Width 13.4 % (11.8-14.3); White Blood Cell 4.6 10^3/uL (4.4-10.8)
[2022-11-11 04:31] LABS: GFR African American 916 mL/min; GFR Non-African American 757 mL/min; Phosphorus 1.6 mg/dL (2.5-4.90)
[2022-11-11 05:39] LABS: Potassium 2.9 mmol/L (3.5-5.1)
[2022-11-11] MEDS: MEROPENEM 1GM IVPB 100 ML IV SCH ×3 (06:07→21:36)
[2022-11-11] MEDS: POTASSIUM CHL 20MEQ/100ML 100 ML IV SCH ×3 (06:20→10:14)
[2022-11-11] MEDS: fentaNYL Drip 2500mCg/250mlNS 250 ML IV SCH ×2 (09:00→21:07)
[2022-11-11] MEDS: PROPRANOLOL HCL 20 MG TAB GT SCH ×2 (10:00→21:36)
[2022-11-11] MEDS: PANTOPRAZOLE 40 MG/10 ML VIAL INJ IV SCH ×2 (10:04→21:35)
[2022-11-11] MEDS: SERTRALINE HCL 50 MG TAB GT SCH (10:06)
[2022-11-11] MEDS: VALPROIC ACID 250 MG/5 ML ORAL SOLN GT SCH ×2 (10:09→21:35)
[2022-11-11] MEDS: NOREPINEPHRINE 8 MG/250ML KIT 250 ML IV SCH (12:00)
[2022-11-11] MEDS: GLYCOPYRROLATE 0.2 MG/ML 1ML VIAL IV PRN (13:00)
[2022-11-11] MEDS: PROPOFOL 100 ML IV SCH (13:15)
[2022-11-11] MEDS: MIDAZOLAM DRIP 50 mg/50mL 50 ML IV SCH (17:20)
[2022-11-11] MEDS ORDERED: Jevity 1.2 Cal/Fiber 1 Liter GT SCH (19:45)
[2022-11-12] VITALS (82 sets, daily range): BP systolic 47–143; BP diastolic 42–84
[2022-11-12 04:05] LABS: Basophils # (auto) 0.1 10 ^3/uL (0-0.2); Basophils % (auto) 1.2 % (0.0-2.0); Eosinophils # (auto) 0.3 10 ^3/uL (0-0.8); Eosinophils % (auto) 5.1 % (0.0-7.0); Hematocrit 32.3 % (41.0-53.0); Hemoglobin 11.2 g/dL (13.5-17.5); Lymphocytes # (auto) 1.6 10 ^3/uL (0.4-5.4); Lymphocytes % (auto) 28.4 % (10.0-50.0); Mean Corpuscular Hemoglobin 31.3 pg (28.0-32.0); Mean Corpuscular Hgb Conc. 34.7 g/dL (32.0-36.0); Mean Corpuscular Volume 90.1 fL (80.0-100.0); Monocytes # (auto) 0.7 10 ^3/uL (0-1.3); Monocytes % (auto) 12.3 % (0.0-12.0); Nucleated Red Blood Cells % 0.1 %; Red Blood Cells 3.59 10^6/uL (4.5-5.90); Red Cell Distribution Width 13.3 % (11.8-14.3); White Blood Cell 5.6 10^3/uL (4.4-10.8)
[2022-11-12 04:23] LABS: Calcium 7.7 mg/dL (8.5-10.1); Potassium 3.3 mmol/L (3.5-5.1)
[2022-11-12 04:28] LABS: Albumin 2.3 g/dL (3.4-5.0); BUN/Creatinine Ratio 4.5 (10.0-20.0); Bilirubin, Total 0.5 mg/dL (0.2-1.0); Total Protein 5.2 g/dL (6.4-8.2)
[2022-11-12] MEDS: VANCOMYCIN 1GM/250ML 250 ML IV SCH ×4 (06:06→23:51)
[2022-11-12] MEDS: MEROPENEM 1GM IVPB 100 ML IV SCH ×3 (07:11→22:11)
[2022-11-12] MEDS: SODIUM CHLORIDE 0.9% 1,000 ML IV SCH ×2 (08:09→18:26)
[2022-11-12] MEDS: PROPRANOLOL HCL 20 MG TAB GT SCH ×2 (10:00→22:09)
[2022-11-12] MEDS: VALPROIC ACID 250 MG/5 ML ORAL SOLN GT SCH ×2 (10:20→22:10)
[2022-11-12] MEDS: SERTRALINE HCL 50 MG TAB GT SCH (10:23)
[2022-11-12] MEDS: PANTOPRAZOLE 40 MG/10 ML VIAL INJ IV SCH ×2 (10:23→22:12)
[2022-11-12] MEDS: NOREPINEPHRINE 8 MG/250ML KIT 250 ML IV SCH (12:00)
[2022-11-12] MEDS: GLYCOPYRROLATE 0.2 MG/ML 1ML VIAL IV PRN ×2 (12:27→18:26)
[2022-11-12] MEDS: PROPOFOL 100 ML IV SCH (13:07)
[2022-11-12] MEDS ORDERED: POTASSIUM PHOSPHATE 44 MEQ in D5W 5% 250 ML IV ONE (14:00)
[2022-11-12] MEDS: ACETAMINOPHEN 650 mg PER 20.3 mL UD GT PRN (17:22)
[2022-11-13] VITALS (59 sets, daily range): BP systolic 97–140; BP diastolic 61–86
[2022-11-13] MEDS: GLYCOPYRROLATE 0.2 MG/ML 1ML VIAL IV PRN ×2 (02:45→10:42)
[2022-11-13 04:44] LABS: Anion Gap 6 (5-15); Blood Urea Nitrogen < 1 mg/dL (7-18); Calcium 7.9 mg/dL (8.5-10.1); Carbon Dioxide 26 mmol/L (21-32); Chloride 103 mmol/L (98-107); Glucose 89 mg/dL (74-106); Potassium 3.3 mmol/L (3.5-5.1); Sodium 135 mmol/L (136-145)
[2022-11-13 04:47] LABS: BUN/Creatinine Ratio 4.8 (10.0-20.0); GFR African American 621 mL/min; GFR Non-African American 513 mL/min
[2022-11-13 05:02] LABS: Basophils # (auto) 0.1 10 ^3/uL (0-0.2); Basophils % (auto) 0.9 % (0.0-2.0); Eosinophils # (auto) 0.2 10 ^3/uL (0-0.8); Hematocrit 32.7 % (41.0-53.0); Hemoglobin 11.6 g/dL (13.5-17.5); Lymphocytes # (auto) 1.4 10 ^3/uL (0.4-5.4); Lymphocytes % (auto) 17.1 % (10.0-50.0); Mean Corpuscular Hemoglobin 31.5 pg (28.0-32.0); Mean Corpuscular Hgb Conc. 35.5 g/dL (32.0-36.0); Mean Corpuscular Volume 88.6 fL (80.0-100.0); Monocytes # (auto) 0.9 10 ^3/uL (0-1.3); Monocytes % (auto) 10.4 % (0.0-12.0); Neutrophils # (auto) 5.9 10 ^3/uL (1.6-8.6); Neutrophils % (auto) 69.6 % (37.0-80.0); Nucleated Red Blood Cells % 0.1 %; Red Blood Cells 3.69 10^6/uL (4.5-5.90); Red Cell Distribution Width 13.4 % (11.8-14.3); White Blood Cell 8.5 10^3/uL (4.4-10.8)
[2022-11-13] MEDS: VANCOMYCIN 1GM/250ML 250 ML IV SCH ×4 (05:59→23:58)
[2022-11-13] MEDS: MEROPENEM 1GM IVPB 100 ML IV SCH ×3 (06:19→22:35)
[2022-11-13] MEDS: SODIUM CHLORIDE 0.9% 1,000 ML IV SCH (06:20)
[2022-11-13] MEDS: ACETAMINOPHEN 650 mg PER 20.3 mL UD GT PRN (07:29)
[2022-11-13] MEDS: MIDAZOLAM DRIP 50 mg/50mL 50 ML IV SCH (08:45)
[2022-11-13] MEDS: fentaNYL Drip 2500mCg/250mlNS 250 ML IV SCH (09:00)
[2022-11-13] MEDS: PROPRANOLOL HCL 20 MG TAB GT SCH ×2 (10:41→22:00)
[2022-11-13] MEDS: VALPROIC ACID 250 MG/5 ML ORAL SOLN GT SCH ×2 (10:41→22:44)
[2022-11-13] MEDS: PANTOPRAZOLE 40 MG/10 ML VIAL INJ IV SCH ×2 (10:42→22:34)
[2022-11-13] MEDS: SERTRALINE HCL 50 MG TAB GT SCH (10:42)
[2022-11-13] MEDS: NOREPINEPHRINE 8 MG/250ML KIT 250 ML IV SCH (12:00)
[2022-11-13] MEDS ORDERED: MUPIROCIN 2% OINT 15gm or 22gm TOP ONE (13:00)
[2022-11-13] MEDS: GLYCOPYRROLATE 0.2 MG/ML 1ML VIAL IV SCH ×3 (16:18→23:58)
[2022-11-13] MEDS: POTASSIUM CHL 20MEQ/100ML 100 ML IV SCH ×2 (20:00→22:36)
[2022-11-13] MEDS ORDERED: MUPIROCIN 2% OINT 15gm or 22gm TOP SCH (22:00)
[2022-11-14] VITALS (63 sets, daily range): BP systolic 105–140; BP diastolic 63–91
[2022-11-14] MEDS: SODIUM CHLORIDE 0.9% 1,000 ML IV SCH ×4 (02:30→21:56)
[2022-11-14 04:10] LABS: Basophils # (auto) 0 10 ^3/uL (0-0.2); Basophils % (auto) 0.5 % (0.0-2.0); Eosinophils # (auto) 0.1 10 ^3/uL (0-0.8); Eosinophils % (auto) 0.6 % (0.0-7.0); Hematocrit 35.2 % (41.0-53.0); Hemoglobin 12.4 g/dL (13.5-17.5); Lymphocytes # (auto) 1.3 10 ^3/uL (0.4-5.4); Lymphocytes % (auto) 14.9 % (10.0-50.0); Mean Corpuscular Hemoglobin 30.6 pg (28.0-32.0); Mean Corpuscular Hgb Conc. 35.3 g/dL (32.0-36.0); Mean Corpuscular Volume 86.7 fL (80.0-100.0); Monocytes % (auto) 11.4 % (0.0-12.0); Neutrophils # (auto) 6.4 10 ^3/uL (1.6-8.6); Neutrophils % (auto) 72.6 % (37.0-80.0); Nucleated Red Blood Cells % 0.1 %; Red Blood Cells 4.07 10^6/uL (4.5-5.90); Red Cell Distribution Width 13.3 % (11.8-14.3); White Blood Cell 8.8 10^3/uL (4.4-10.8)
[2022-11-14 04:18] LABS: BUN/Creatinine Ratio 9.1 (10.0-20.0); Calcium 8.2 mg/dL (8.5-10.1); Potassium 3.4 mmol/L (3.5-5.1)
[2022-11-14] MEDS: MEROPENEM 1GM IVPB 100 ML IV SCH ×3 (05:43→21:41)
[2022-11-14] MEDS: GLYCOPYRROLATE 0.2 MG/ML 1ML VIAL IV SCH ×3 (05:43→17:33)
[2022-11-14] MEDS: VANCOMYCIN 1GM/250ML 250 ML IV SCH ×3 (05:43→17:33)
[2022-11-14] MEDS: SERTRALINE HCL 50 MG TAB GT SCH (09:05)
[2022-11-14] MEDS: VALPROIC ACID 250 MG/5 ML ORAL SOLN GT SCH ×2 (09:05→21:41)
[2022-11-14] MEDS: PANTOPRAZOLE 40 MG/10 ML VIAL INJ IV SCH ×2 (09:05→21:41)
[2022-11-14] MEDS: PROPRANOLOL HCL 20 MG TAB GT SCH ×2 (09:06→21:41)
[2022-11-14] MEDS: POTASSIUM CHL 20MEQ/100ML 100 ML IV SCH ×2 (12:30→14:01)
[2022-11-15] MEDS: GLYCOPYRROLATE 0.2 MG/ML 1ML VIAL IV SCH ×4 (00:22→18:00)
[2022-11-15] MEDS: VANCOMYCIN 1GM/250ML 250 ML IV SCH ×4 (00:32→21:29)
[2022-11-15 05:56] LABS: Basophils # (auto) 0 10 ^3/uL (0-0.2); Basophils % (auto) 0.8 % (0.0-2.0); Eosinophils # (auto) 0.1 10 ^3/uL (0-0.8); Eosinophils % (auto) 2.1 % (0.0-7.0); Hematocrit 36.4 % (41.0-53.0); Lymphocytes # (auto) 1.7 10 ^3/uL (0.4-5.4); Lymphocytes % (auto) 26.6 % (10.0-50.0); Mean Corpuscular Hgb Conc. 35.7 g/dL (32.0-36.0); Monocytes % (auto) 15.8 % (0.0-12.0); Neutrophils # (auto) 3.5 10 ^3/uL (1.6-8.6); Neutrophils % (auto) 54.7 % (37.0-80.0); Red Blood Cells 4.18 10^6/uL (4.5-5.90); Red Cell Distribution Width 13.5 % (11.8-14.3); White Blood Cell 6.3 10^3/uL (4.4-10.8)
[2022-11-15 06:11] LABS: BUN/Creatinine Ratio 6.9 (10.0-20.0); Calcium 8.5 mg/dL (8.5-10.1); Potassium 3.3 mmol/L (3.5-5.1)
[2022-11-15] MEDS: MEROPENEM 1GM IVPB 100 ML IV SCH ×3 (06:30→23:33)
[2022-11-15] MEDS ORDERED: POTASSIUM EFFERVESENT TAB 25 MEQ GT ONE (10:15)
[2022-11-15] MEDS: PANTOPRAZOLE 40 MG/10 ML VIAL INJ IV SCH ×2 (11:21→23:33)
[2022-11-15] MEDS: VALPROIC ACID 250 MG/5 ML ORAL SOLN GT SCH ×2 (11:22→23:33)
[2022-11-15] MEDS: PROPRANOLOL HCL 20 MG TAB GT SCH ×2 (11:22→23:32)
[2022-11-15] MEDS: SERTRALINE HCL 50 MG TAB GT SCH (11:23)
[2022-11-15 12:30] VITALS: BP 110/66
[2022-11-15 16:54] VITALS: BP 112/61
[2022-11-15] MEDS: SODIUM CHLORIDE 0.9% 1,000 ML IV SCH (18:30)
[2022-11-15 22:00] VITALS: BP 118/83
[2022-11-16] MEDS: SODIUM CHLORIDE 0.9% 1,000 ML IV SCH (04:49)
[2022-11-16 04:50] VITALS: BP 113/74
[2022-11-16 05:41] LABS: Calcium 8.6 mg/dL (8.5-10.1); Potassium 3.3 mmol/L (3.5-5.1)
[2022-11-16 05:44] LABS: Basophils # (auto) 0 10 ^3/uL (0-0.2); Basophils % (auto) 0.7 % (0.0-2.0); Eosinophils # (auto) 0.1 10 ^3/uL (0-0.8); Eosinophils % (auto) 1.7 % (0.0-7.0); Hematocrit 38.6 % (41.0-53.0); Hemoglobin 13.8 g/dL (13.5-17.5); Lymphocytes # (auto) 1.7 10 ^3/uL (0.4-5.4); Lymphocytes % (auto) 26.7 % (10.0-50.0); Mean Corpuscular Hgb Conc. 35.8 g/dL (32.0-36.0); Mean Corpuscular Volume 86.6 fL (80.0-100.0); Monocytes # (auto) 0.9 10 ^3/uL (0-1.3); Monocytes % (auto) 14.4 % (0.0-12.0); Neutrophils # (auto) 3.5 10 ^3/uL (1.6-8.6); Neutrophils % (auto) 56.5 % (37.0-80.0); Nucleated Red Blood Cells % 0.1 %; Red Blood Cells 4.46 10^6/uL (4.5-5.90); Red Cell Distribution Width 13.5 % (11.8-14.3); White Blood Cell 6.2 10^3/uL (4.4-10.8)
[2022-11-16] MEDS: GLYCOPYRROLATE 0.2 MG/ML 1ML VIAL IV SCH ×2 (06:00)
[2022-11-16] MEDS: VANCOMYCIN 1GM/250ML 250 ML IV SCH ×2 (06:27→14:56)
[2022-11-16] MEDS: MEROPENEM 1GM IVPB 100 ML IV SCH ×2 (06:59→14:55)
[2022-11-16 09:00] VITALS: BP 127/80
[2022-11-16] MEDS: SERTRALINE HCL 50 MG TAB GT SCH (11:27)
[2022-11-16] MEDS: PANTOPRAZOLE 40 MG/10 ML VIAL INJ IV SCH (11:27)
[2022-11-16] MEDS: PROPRANOLOL HCL 20 MG TAB GT SCH (11:27)
[2022-11-16] MEDS: VALPROIC ACID 250 MG/5 ML ORAL SOLN GT SCH (11:27)
[2022-11-16 13:00] VITALS: BP 126/82
[2022-11-16 17:00] VITALS: BP 129/85
== END 2022-11-16 20:45 | disposition home health service (06) | DRG 870 ==
LOC: ER 07:57 → EDBD 07:57 → TELE 13:23 → ICU CENTRL 14:43 → ICU WEST 11-07 15:10 → TELE-EAST 11-14 22:48
PROVIDERS: ADMIT Nurse Practitioner Family; ATTEND Internal Medicine Pulmonary Disease
PROC: 5A1955Z Respiratory Ventilation, Greater than 96 Consecutive Hours (ICD-10-PCS; principal; 2022-11-06)
PROC: 0BH17EZ Insertion of Endotracheal Airway into Trachea, Via Natural or Artificial Opening (ICD-10-PCS; 2022-11-06)
PROC: 30233R1 Transfusion of Nonautologous Platelets into Peripheral Vein, Percutaneous Approach (ICD-10-PCS; 2022-11-06)
PROC: 02HV33Z Insertion of Infusion Device into Superior Vena Cava, Percutaneous Approach (ICD-10-PCS; 2022-11-06)
PROC: 30233N1 Transfusion of Nonautologous Red Blood Cells into Peripheral Vein, Percutaneous Approach (ICD-10-PCS; 2022-11-06)
PROC: 0DB58ZX Excision of Esophagus, Via Natural or Artificial Opening Endoscopic, Diagnostic (ICD-10-PCS; 2022-11-07)
PROC: 0DB68ZX Excision of Stomach, Via Natural or Artificial Opening Endoscopic, Diagnostic (ICD-10-PCS; 2022-11-07)
PROC: 5A1935Z Respiratory Ventilation, Less than 24 Consecutive Hours (ICD-10-PCS; 2022-11-12)
DX: A41.01 Sepsis due to Methicillin susceptible Staphylococcus aureus (principal); G93.41 Metabolic encephalopathy; J69.0 Pneumonitis due to inhalation of food and vomit; J96.01 Acute respiratory failure with hypoxia; R57.1 Hypovolemic shock; K22.11 Ulcer of esophagus with bleeding; K29.91 Gastroduodenitis, unspecified, with bleeding; G10 Huntington's disease; Z16.12 Extended spectrum beta lactamase (ESBL) resistance; B96.20 Unspecified Escherichia coli [E. coli] as the cause of diseases classified elsewhere; K44.9 Diaphragmatic hernia without obstruction or gangrene; Z74.01 Bed confinement status; Z93.1 Gastrostomy status; B96.5 Pseudomonas (aeruginosa) (mallei) (pseudomallei) as the cause of diseases classified elsewhere; Z20.822 Contact with and (suspected) exposure to COVID-19; K22.2 Esophageal obstruction
CPT/HCPCS: 31500; 36415; 36556; 36600; 43239; 70450; 71045; 71260; 74177; 80048; 80053; 80164; 80202; 81001; 82805; 82962; 83605; 83735; 84100; 84484; 85007; 85014; 85018; 85025; 85027; 85610; 85730; 86850; 86900; 86901; 86920; 87040; 87070; 87077; 87081; 87086; 87186; 87205; 87426; 93005; 93306; 93970; 94002; 94003; 94640; 96365; 96366; 96367; 96375; 99291; C9113; G0378; J0330; J1335; J2185; J2250; J2543; J2704; J3480; J3490; J7060

== ENCOUNTER 2023-09-20 19:43 | Inpatient (IN) | payer OTHER, MEDICAID ==
[~2023-09-20] VITALS: Ht 170.2 cm; Wt 73.1 kg
[~2023-09-20 19:43] MED LIST changes: -AZIT-81 PO
[2023-09-20 21:43] LABS: Basophils # (auto) 0 10 ^3/uL (0-0.2); Basophils % (auto) 0.3 % (0.0-2.0); Eosinophils # (auto) 0.2 10 ^3/uL (0-0.8); Eosinophils % (auto) 2.6 % (0.0-7.0); Hematocrit 44.9 % (41.0-53.0); Hemoglobin 14.9 g/dL (13.5-17.5); Lymphocytes # (auto) 1.6 10 ^3/uL (0.4-5.4); Lymphocytes % (auto) 19.2 % (10.0-50.0); Mean Corpuscular Hemoglobin 30.3 pg (28.0-32.0); Mean Corpuscular Hgb Conc. 33.2 g/dL (32.0-36.0); Mean Corpuscular Volume 91.1 fL (80.0-100.0); Monocytes # (auto) 0.9 10 ^3/uL (0-1.3); Monocytes % (auto) 10.3 % (0.0-12.0); Neutrophils # (auto) 5.7 10 ^3/uL (1.6-8.6); Neutrophils % (auto) 67.6 % (37.0-80.0); Nucleated Red Blood Cells % 0.1 %; Red Blood Cells 4.93 10^6/uL (4.5-5.90); Red Cell Distribution Width 13.4 % (11.8-14.3); White Blood Cell 8.4 10^3/uL (4.4-10.8)
[2023-09-20 22:01] LABS: Alanine Aminotransferase 36 U/L (7-40); Albumin 4.1 g/dL (3.2-4.8); Alkaline Phosphatase 109 U/L (46-116); Anion Gap 6 (5-15); Aspartate Aminotransferase 18 U/L (13-40); BUN/Creatinine Ratio 17.3 (10.0-20.0); Bilirubin, Total 0.4 mg/dL (0.2-1.0); Blood Urea Nitrogen 9 mg/dL (9-23); Calcium 9.5 mg/dL (8.7-10.4); Carbon Dioxide 25 mmol/L (20-30); Chloride 104 mmol/L (98-107); Glucose 91 mg/dL (74-106); Lipase 39 U/L (12-53); Potassium 4.3 mmol/L (3.5-5.1); Sodium 135 mmol/L (136-145)
[2023-09-20 22:11] LABS: INR 1.11 (0.9-1.15); Prothrombin Time 11.6 sec (9.3-11.8)
[2023-09-21 01:00] VITALS: PULSE 98; RESP 18; O2SAT 95
[2023-09-21] MEDS: MORPHINE SULFATE 4 MG/ML SYR/VIAL IV ONE ×2 (01:37→03:36)
[2023-09-21] MEDS: ONDANSETRON HCL 4 MG/2 ML VIAL IV ONE ×2 (01:38→03:37)
[2023-09-21 07:30] VITALS: O2SAT 95
[2023-09-21] MEDS ORDERED: DOCUSATE SOD 100 MG CAP PO PRN (09:30)
[2023-09-21] MEDS: SODIUM CHLORIDE 0.9% 1,000 ML IV SCH (09:30)
[2023-09-21] MEDS: DIVALPROEX SODIUM 250 MG PO SCH (10:00)
[2023-09-21] MEDS: TETRABENAZINE 12.5 MG PO SCH (10:00)
[2023-09-21] MEDS: PROPRANOLOL HCL PO SCH (10:00)
[2023-09-21] MEDS: APIXABAN 2.5 MG TAB ONE (10:41)
[2023-09-21 10:43] LABS: Urine Bacteria None Seen /hpf (None Seen)
[2023-09-21] MEDS: APIXABAN 2.5 MG TAB PEG SCH (10:43)
[2023-09-21 10:56] LABS: Urine Blood Negative /uL (Negative); Urine Budding Yeast MANY /hpf (None Seen); Urine Clarity Clear (Clear); Urine Color Yellow (Yellow); Urine Hyaline Cast FEW /lpf (0 - 2); Urine Mucus FEW (None Seen); Urine Protein, UAD Negative (Negative); Urine Specific Gravity 1.019 (1.001-1.035); Urine Urobilinogen Normal (Negative); Urine WBC 2 /hpf (0 - 3); Urine pH 6.5 (5.0-9.0)
[2023-09-21] MEDS: ENOXAPARIN SOD 40 MG/0.4 ML SYRINGE SC SCH (11:54)
[2023-09-21] MEDS: cefTRIAXone 1GM/50ML D5W 50 ML IV ONE ×2 (11:58→12:02)
[2023-09-21] MEDS: metroNIDAZOLE 500MG/100ML 100 ML IV ONE ×2 (11:59→12:02)
[2023-09-21 20:24] VITALS: PULSE 94; RESP 17; O2SAT 94
[2023-09-21] MEDS: ONDANSETRON HCL 4 MG/2 ML VIAL IV PRN (21:11)
[2023-09-21 21:23] VITALS: BP 101/66; PULSE 94; RESP 17; TEMP 98.9; O2SAT 94
[2023-09-21] MEDS: MORPHINE SULFATE INJ 2 MG/ml SYRG IV PRN (21:23)
[2023-09-21] MEDS ORDERED: CLOT1CRE7 TOP (21:25)
[2023-09-21] MEDS ORDERED: [UNRECOGNIZED DRUG - CODE] (21:25)
[2023-09-21] MEDS ORDERED: PANT40T PO (21:25)
[2023-09-21] MEDS ORDERED: TRAZ-227 GT (21:25)
[2023-09-21] MEDS ORDERED: metroNIDAZOLE 500MG/100ML 100 ML IV SCH (22:00)
[2023-09-22 06:45] LABS: Basophils # (auto) 0 10 ^3/uL (0-0.2); Basophils % (auto) 0.6 % (0.0-2.0); Eosinophils # (auto) 0.1 10 ^3/uL (0-0.8); Eosinophils % (auto) 1.7 % (0.0-7.0); Hematocrit 40.6 % (41.0-53.0); Hemoglobin 13.5 g/dL (13.5-17.5); Lymphocytes # (auto) 1.5 10 ^3/uL (0.4-5.4); Lymphocytes % (auto) 21.7 % (10.0-50.0); Mean Corpuscular Hemoglobin 30.3 pg (28.0-32.0); Mean Corpuscular Hgb Conc. 33.4 g/dL (32.0-36.0); Mean Corpuscular Volume 90.8 fL (80.0-100.0); Monocytes # (auto) 0.7 10 ^3/uL (0-1.3); Monocytes % (auto) 9.8 % (0.0-12.0); Neutrophils # (auto) 4.7 10 ^3/uL (1.6-8.6); Neutrophils % (auto) 66.2 % (37.0-80.0); Nucleated Red Blood Cells % 0.1 %; Red Blood Cells 4.47 10^6/uL (4.5-5.90); Red Cell Distribution Width 13.8 % (11.8-14.3); White Blood Cell 7.1 10^3/uL (4.4-10.8)
[2023-09-22 06:51] LABS: Alanine Aminotransferase 27 U/L (7-40); Albumin 3.6 g/dL (3.2-4.8); Alkaline Phosphatase 105 U/L (46-116); Anion Gap 9 (5-15); Aspartate Aminotransferase 17 U/L (13-40); BUN/Creatinine Ratio 16.3 (10.0-20.0); Blood Urea Nitrogen 8 mg/dL (9-23); Carbon Dioxide 21 mmol/L (20-30); Chloride 109 mmol/L (98-107); Glucose 80 mg/dL (74-106); Potassium 3.9 mmol/L (3.5-5.1); Sodium 139 mmol/L (136-145); Total Protein 5.7 g/dL (5.7-8.2)
[2023-09-22 06:52] LABS: Bilirubin, Total 0.6 mg/dL (0.2-1.0)
[2023-09-22 08:00] VITALS: RESP 18; O2SAT 94
[2023-09-22 09:00] VITALS: BP 102/64; PULSE 79; RESP 19; TEMP 98.8; O2SAT 95
[2023-09-22] MEDS ORDERED: cefTRIAXone 1GM/50ML D5W 50 ML IV SCH (09:00)
[2023-09-22] MEDS: FLUCONAZOLE 200MG/100ML 100 ML IV SCH (11:23)
[2023-09-22] MEDS: PANTOPRAZOLE 40 MG/10 ML VIAL INJ IV SCH (11:24)
[2023-09-22 13:00] VITALS: BP 105/67; PULSE 83; RESP 16; TEMP 98.1; O2SAT 97
[2023-09-22 16:40] VITALS: BP 106/68; PULSE 82; RESP 16; TEMP 98.2; O2SAT 96
[2023-09-22] MEDS: Jevity 1.2 Cal/Fiber 1 Liter GT SCH (18:20)
[2023-09-22 19:45] VITALS: PULSE 76; RESP 17; O2SAT 98
[2023-09-22 21:04] VITALS: BP 113/66; PULSE 76; RESP 17; TEMP 98.1; O2SAT 98
[2023-09-22] MEDS ORDERED: NUTREN 1.0 250 ML BTL GT SCH (22:00)
[2023-09-23] VITALS (8 sets, daily range): BP systolic 105–113; BP diastolic 67–76; PULSE 78–94; RESP 16–21; TEMP 97.8–98.6; O2SAT 94–98
[2023-09-23 08:12] LABS: Basophils # (auto) 0 10 ^3/uL (0-0.2); Basophils % (auto) 0.6 % (0.0-2.0); Eosinophils # (auto) 0.1 10 ^3/uL (0-0.8); Eosinophils % (auto) 1.7 % (0.0-7.0); Hematocrit 40.8 % (41.0-53.0); Hemoglobin 13.5 g/dL (13.5-17.5); Lymphocytes # (auto) 1.9 10 ^3/uL (0.4-5.4); Lymphocytes % (auto) 23.5 % (10.0-50.0); Mean Corpuscular Hgb Conc. 33.2 g/dL (32.0-36.0); Mean Corpuscular Volume 90.5 fL (80.0-100.0); Monocytes # (auto) 0.9 10 ^3/uL (0-1.3); Monocytes % (auto) 10.5 % (0.0-12.0); Neutrophils # (auto) 5.2 10 ^3/uL (1.6-8.6); Neutrophils % (auto) 63.7 % (37.0-80.0); Nucleated Red Blood Cells % 0.1 %; Red Cell Distribution Width 13.6 % (11.8-14.3); White Blood Cell 8.2 10^3/uL (4.4-10.8)
[2023-09-23 08:57] LABS: Chloride 108 mmol/L (98-107); Potassium 3.4 mmol/L (3.5-5.1); Sodium 139 mmol/L (136-145)
[2023-09-23 08:58] LABS: Anion Gap 11 (5-15); Carbon Dioxide 20 mmol/L (20-30)
[2023-09-23 09:03] LABS: BUN/Creatinine Ratio 17.8 (10.0-20.0); Blood Urea Nitrogen 8 mg/dL (9-23); Glucose 94 mg/dL (74-106)
[2023-09-23 09:15] LABS: Magnesium 1.9 mg/dL (1.6-2.6)
[2023-09-23] MEDS: POTASSIUM EFFERVESENT TAB 25 MEQ GT ONE (13:49)
[2023-09-24] VITALS (7 sets, daily range): BP systolic 107–118; BP diastolic 73–82; PULSE 77–101; RESP 16–20; TEMP 97.5–99; O2SAT 95–97
[2023-09-24] MEDS: Jevity 1.2 Cal/Fiber 1 Liter GT SCH (04:38)
[2023-09-24 05:31] LABS: Anion Gap 8 (5-15); Carbon Dioxide 23 mmol/L (20-30); Chloride 109 mmol/L (98-107); Potassium 3.6 mmol/L (3.5-5.1); Sodium 140 mmol/L (136-145)
[2023-09-24 05:33] LABS: Calcium 9.3 mg/dL (8.7-10.4)
[2023-09-24 05:37] LABS: Glucose 94 mg/dL (74-106)
[2023-09-24 05:38] LABS: BUN/Creatinine Ratio 18.4 (10.0-20.0); Basophils # (auto) 0 10 ^3/uL (0-0.2); Basophils % (auto) 0.5 % (0.0-2.0); Blood Urea Nitrogen 9 mg/dL (9-23); Eosinophils # (auto) 0.1 10 ^3/uL (0-0.8); Eosinophils % (auto) 0.7 % (0.0-7.0); Hematocrit 41.6 % (41.0-53.0); Hemoglobin 14.2 g/dL (13.5-17.5); Lymphocytes # (auto) 1.6 10 ^3/uL (0.4-5.4); Lymphocytes % (auto) 20.7 % (10.0-50.0); Mean Corpuscular Hemoglobin 30.8 pg (28.0-32.0); Mean Corpuscular Hgb Conc. 34.2 g/dL (32.0-36.0); Mean Corpuscular Volume 90.3 fL (80.0-100.0); Monocytes # (auto) 0.8 10 ^3/uL (0-1.3); Monocytes % (auto) 10.8 % (0.0-12.0); Neutrophils # (auto) 5.3 10 ^3/uL (1.6-8.6); Neutrophils % (auto) 67.3 % (37.0-80.0); Nucleated Red Blood Cells % 0.1 %; Red Blood Cells 4.61 10^6/uL (4.5-5.90); Red Cell Distribution Width 13.6 % (11.8-14.3); White Blood Cell 7.9 10^3/uL (4.4-10.8)
[2023-09-25] MEDS ORDERED: ceFAZolin 1GM/50ML 50 ML IV ONE
[2023-09-25 05:10] VITALS: BP 118/82; PULSE 93; RESP 18; TEMP 98.6; O2SAT 97
[2023-09-25 07:21] LABS: Basophils # (auto) 0.1 10 ^3/uL (0-0.2); Basophils % (auto) 0.7 % (0.0-2.0); Eosinophils # (auto) 0.1 10 ^3/uL (0-0.8); Eosinophils % (auto) 0.6 % (0.0-7.0); Hematocrit 43.9 % (41.0-53.0); Hemoglobin 14.8 g/dL (13.5-17.5); Lymphocytes # (auto) 1.8 10 ^3/uL (0.4-5.4); Lymphocytes % (auto) 20.8 % (10.0-50.0); Mean Corpuscular Hemoglobin 30.5 pg (28.0-32.0); Mean Corpuscular Hgb Conc. 33.6 g/dL (32.0-36.0); Mean Corpuscular Volume 90.6 fL (80.0-100.0); Monocytes % (auto) 11.6 % (0.0-12.0); Neutrophils # (auto) 5.7 10 ^3/uL (1.6-8.6); Neutrophils % (auto) 66.3 % (37.0-80.0); Nucleated Red Blood Cells % 0.2 %; Red Blood Cells 4.85 10^6/uL (4.5-5.90); Red Cell Distribution Width 13.7 % (11.8-14.3); White Blood Cell 8.6 10^3/uL (4.4-10.8)
[2023-09-25 07:38] LABS: INR 1.14 (0.9-1.15); Partial Thromboplastin Time 30.5 SEC (24.5-34.5); Prothrombin Time 11.9 sec (9.3-11.8)
[2023-09-25 07:41] LABS: Chloride 112 mmol/L (98-107); Potassium 3.7 mmol/L (3.5-5.1); Sodium 143 mmol/L (136-145)
[2023-09-25 07:42] LABS: Anion Gap 7 (5-15); Carbon Dioxide 24 mmol/L (20-30)
[2023-09-25 07:43] LABS: Calcium 9.5 mg/dL (8.5-10.1)
[2023-09-25 07:47] LABS: BUN/Creatinine Ratio 19.1 (10.0-20.0); Blood Urea Nitrogen 9 mg/dL (9-23); Glucose 102 mg/dL (74-106)
[2023-09-25 08:00] LABS: Magnesium 2.2 mg/dL (1.6-2.6)
[2023-09-25 08:30] VITALS: BP 101/80; PULSE 78; RESP 19; TEMP 98.1; O2SAT 98
[2023-09-25 12:30] VITALS: BP 114/77; PULSE 84; RESP 18; TEMP 97.9; O2SAT 96
[2023-09-25] MEDS ORDERED: LIDOCAINE 2%HCL (LOCAL ANESTH.) INJ 10ml MDV ONE (16:48)
[2023-09-25] MEDS ORDERED: PROPOFOL 10 MG/ML 20 ML IV ONE (16:49)
[2023-09-25 17:15] VITALS: O2SAT 100
[2023-09-25 20:00] VITALS: PULSE 80; RESP 16
[2023-09-25 21:00] VITALS: BP 99/66; PULSE 80; RESP 16; TEMP 97.8; O2SAT 95
[2023-09-26 01:00] VITALS: BP 106/67; PULSE 95; RESP 18; TEMP 98.3; O2SAT 96
[2023-09-26 05:00] VITALS: BP 98/60; PULSE 92; RESP 18; TEMP 97.6; O2SAT 96
[2023-09-26 06:52] LABS: Basophils # (auto) 0 10 ^3/uL (0-0.2); Basophils % (auto) 0.5 % (0.0-2.0); Eosinophils # (auto) 0 10 ^3/uL (0-0.8); Eosinophils % (auto) 0.3 % (0.0-7.0); Hematocrit 44.5 % (41.0-53.0); Hemoglobin 14.8 g/dL (13.5-17.5); Lymphocytes # (auto) 1.5 10 ^3/uL (0.4-5.4); Lymphocytes % (auto) 17.4 % (10.0-50.0); Mean Corpuscular Hemoglobin 30.3 pg (28.0-32.0); Mean Corpuscular Hgb Conc. 33.2 g/dL (32.0-36.0); Mean Corpuscular Volume 91.3 fL (80.0-100.0); Monocytes # (auto) 0.9 10 ^3/uL (0-1.3); Monocytes % (auto) 10.5 % (0.0-12.0); Neutrophils # (auto) 6.1 10 ^3/uL (1.6-8.6); Neutrophils % (auto) 71.3 % (37.0-80.0); Nucleated Red Blood Cells % 0.3 %; Red Blood Cells 4.87 10^6/uL (4.5-5.90); Red Cell Distribution Width 13.7 % (11.8-14.3); White Blood Cell 8.6 10^3/uL (4.4-10.8)
[2023-09-26 07:14] LABS: Chloride 112 mmol/L (98-107); Potassium 3.4 mmol/L (3.5-5.1); Sodium 143 mmol/L (136-145)
[2023-09-26 07:15] LABS: Anion Gap 8 (5-15); Calcium 9.8 mg/dL (8.7-10.4); Carbon Dioxide 23 mmol/L (20-30)
[2023-09-26 07:20] LABS: BUN/Creatinine Ratio 29.4 (10.0-20.0); Blood Urea Nitrogen 15 mg/dL (9-23); Glucose 129 mg/dL (74-106)
[2023-09-26 09:00] VITALS: BP 118/83; PULSE 83; RESP 16; TEMP 98.8; O2SAT 95
[2023-09-26] MEDS ORDERED: Jevity 1.2 Cal/Fiber 1 Liter GT SCH (10:00)
[2023-09-26 13:00] VITALS: BP 117/79; PULSE 87; RESP 16; TEMP 98.8; O2SAT 97
== END 2023-09-26 15:05 | disposition home or self-care (01) | DRG 394 ==
LOC: ER 19:43 → EDBD 19:43 → OVERFLOW 09-21 11:09 → CENTRAL 09-21 15:48
PROVIDERS: ADMIT Internal Medicine Pulmonary Disease; ATTEND Internal Medicine Pulmonary Disease
PROC: 0DJ08ZZ Inspection of Upper Intestinal Tract, Via Natural or Artificial Opening Endoscopic (ICD-10-PCS; principal; 2023-09-25 16:52)
DX: K94.23 Gastrostomy malfunction (principal); G10 Huntington's disease; R18.8 Other ascites; G82.20 Paraplegia, unspecified; N20.0 Calculus of kidney; Y83.8 Other surgical procedures as the cause of abnormal reaction of the patient, or of later complication, without mention of misadventure at the time of the procedure; K22.2 Esophageal obstruction; Z79.899 Other long term (current) drug therapy
CPT/HCPCS: 36415; 71045; 74176; 80048; 80053; 81001; 83605; 83690; 83735; 84484; 85025; 85610; 85730; 87040; 87077; 87081; 87186; 93005; 96374; 96375; 96376; C9113; G0378; J1450; J2001; J2405; J2704; J3490

== ENCOUNTER 2024-12-27 02:55 | Inpatient (IN) | payer OTHER, MEDICAID ==
[2024-12-27] VITALS (13 sets, daily range): BP systolic 115–153; BP diastolic 82–102; PULSE 94–133; RESP 18–36; TEMP 98.9–99.5; O2SAT 94–98
[~2024-12-27] VITALS: Ht 162.6 cm; Wt 88.0 kg
[~2024-12-27 02:55] MED LIST changes: -APIX2.5T PEG; +CLOT1CRE7 TOP; +PANT40T PO; -PROM25TA10 PO; -PROP60CA34 GT; -PROP60CA34 PO; +TRAZ-227 GT; +[UNRECOGNIZED DRUG - CODE]
--- NOTE | 2024-12-27 03:11 | ED.PDOC ---
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 EMS states that symptoms have been onset for the past 1x day, w/ no alleviating factors noted by . Per EMS pt's baseline includes a productive cough, yelling, groaning and drooling. Pt is noted to have a PEG tube in place that notes was "leaking clear fluid". Pt is noted to be non-verbal, so exam was limited. No associated /D noted by EMS. 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, Medications, Allergies Allergies: Coded Allergies: NO KNOWN ALLERGIES (Unverified , 11/06/22) Home Meds Reported Medications Nutritional Supplements (Fibersource Hn) Liq, 20 ML TID 09/21/23 Clotrimazole (Topical) (Clotrimazole Anti-Fungal) 1 % Cre, 1 GM TOP BID 09/21/23 Trazodone Hcl (Trazodone Hcl) 50 Mg Tab, 1 TAB GT QHSP PRN for insomnia 09/21/23 Pantoprazole Sodium Sesquihydr (Pantoprazole Sodium) 40 Mg Tab, 1 TAB PO DAILY 09/21/23 Tetrabenazine (Tetrabenazine) 25 Mg Tab, 25 MG GT BID, TAB 10/20/22 Sertraline HCl (Sertraline Hydrochloride) 25 Mg Tab, 25 MG GT, TAB 10/20/22 Haloperidol (Haldol) 5 Mg Tb, 2 MG GT, TAB 10/20/22 Divalproex Sodium (Divalproex Sodium) 250 Mg Tab, 250 MG PO BID for 30 Days, MG 10/20/22 Information Source: Emergency Med Personnel Mode of Arrival: EMS Timing: Hours Duration: Since onset, Hours Prehospital treatment: Accucheck Quality: Aching Vomitus: None Stool: Normal Severity: Moderate Recent: None Recent Hx of: None Pain Location: Diffuse Past Medical History Past Medical History (Other): Huntingtons Surgical History: Unknown Family History Family History: Reviewed,noncontributory to illness Social History Smoker: Non-Smoker Alcohol: Denies ETOH Use Drugs: Denies Drug Use Lives In: Home Constitutional: denies: chills, diaphoresis, fatigue, fever, malaise, sweats, weakness, others EENTM: denies: blurred vision, double vision, ear bleeding, ear discharge, ear drainage, ear pain, ear ringing, eye pain, eye redness, hearing loss, mouth pain, mouth swelling, nasal discharge, nose bleeding, nose congestion, nose pain, photophobia, tearing, throat pain, throat swelling, voice changes, others Respiratory: denies: cough, hemoptysis, orthopnea, SOB at rest, shortness of breath, SOB with excertion, stridor, wheezing, others Cardiovascular: denies: chest pain, dizzy spells, diaphoresis, Dyspnea on exertion, edema, irregular heart beat, left arm pain, lightheadedness, palpitations, PND, syncope, others Gastrointestinal: reports: abdominal pain; denies: abdomen distended, blood st reaked bowels, constipated, diarrhea, dysphagia, difficulty swallowing, hematemesis, melena, nausea, poor appetite, poor fluid intake, rectal bleeding, rectal pain, vomiting, others Genitourinary: denies: burning, dysuria, flank pain, frequency, hematuria, incontinence, penile discharge, penile sore, pain, testicle pain, testicle swelling, urgency, others Neurological: denies: dizziness, fainting, headache, left sided numbness, left sided weakness, numbness, paresthesia, pre-existing deficit, right sided numbness, right sided weakness, seizure, speech problems, tingling, tremors, weakness, others Musculoskeletal: denies: back pain, gout, joint pain, joint swelling, muscle pain, muscle stiffness, neck pain, others Integumetry: denies: bruises, change in color, change in hair/nails, dryness, laceration, lesions, lumps, rash, wounds, others Allergic/Immunocompromised: denies: Difficulty Healing, Frequent Infections, Hives, Itching, others Hematologic/Lymphatic: denies: anemia, blood clots, easy bleeding, easy bruising, swollen glands, others Endocrine: denies: excessive hunger, excessive sweating, excessive thirst, excessive urination, flushing, intolerance to cold, intolerance to heat, unexplained weight gain, unexplained weight loss, others Psychiatric: denies: anxiety, bipolar disorder, depression, hopeless, panic disorder, schizophrenia, sleepless, suicidal, others All Other Systems: Reviewed and Negative Physical Exam General Appearance: Moderate Distress, Normal, Obese, Other (Chronic ill appearing) HEENT: Normal ENT Inspection, Pharynx Normal, TMs Normal Neck: Full Range of Motion, Non-Tender, Normal, Normal Inspection Respiratory: Chest Non-Tender, Lungs Clear, No Accessory Muscle Use, No Respiratory Distress, Normal Breath Sounds Cardiovascular: No Edema, No JVD, No Murmur, No Gallop, Normal Peripheral Pulses, Regular Rate/Rhythm Breast Exam: Deferred Gastrointestinal: Diffuse, No Pulsatile Mass, Normal Bowel Sounds, Soft, Tenderness, Other (Feeding tube, and distended abdomen ) Genitalia: Deferred Pelvic: Deferred Rectal: Deferred Extremities: No calf tenderness, Normal capillary refill, Normal inspection, Normal range of motion, Non-tender, No pedal edema Musculoskeletal : Apperance: Normal Neurologic: Alert, No Motor Deficits, Normal Affect, Normal Mood, No Sensory Deficits Cerebellar Function: Normal Reflexes: Normal Skin: Dry, Normal Color, Warm Lymphatic: No Adenopathy Was a procedure done? Was a procedure done?: No GI differential Dx Differential Diagnosis: Appendicitis, Angina/MS, Aortic dissection, Bowel Obstruction, Cholangitis, Cholecystitis, Constipation, Diverticular disease, Dysmenorrhea, Gastritis/PUD, Gastroenteritis, GI hemorrhage, Hernia, Hepatitis, Inflammatory BD, Ischemic Bowel, Pancreatitis, UTI, Urolithiasis, Dehydration, Diabetes/ DKA, Electrolyte Imbalance, Food Poisoning, Bacterial, Parasitic, Malnutrition, Renal Failure, Stress Ulcer, Kidney Stone X-Ray, Labs, Meds, VS Vital Signs Date Time Temp Pulse Resp B/P (MAP) Pulse Ox O2 Delivery O2 Flow Rate FiO2 12/27/24 04:00 98.9 113 39 173/93 (119) 94 98.9 12/27/24 03:45 Room Air* 0 21 12/27/24 03:04 97.9 114 16 124/93 (103) 95 97.9 12/27/24 02:58 113 Lab Test 12/27/24 03:27 Range/Units White Blood Count 17.6 H 4.4-10.8 10^3/uL Red Blood Count 5.10 4.5-5.90 10^6/uL Hemoglobin 15.2 13.5-17.5 g/dL Hematocrit 44.1 41.0-53.0 % Mean Corpuscular Volume 86.6 80.0-100.0 fL Mean Corpuscular Hemoglobin 29.8 28.0-32.0 pg Mean Corpuscular Hemoglobin Concent 34.4 32.0-36.0 g/dL Red Cell Distribution Width 14.3 11.8-14.3 % Platelet Count 319 140-450 10^3/uL Mean Platelet Volume 8.4 6.9-10.8 fL Neutrophils (%) (Auto) 86.0 H 37.0-80.0 % Lymphocytes (%) (Auto) 5.6 L 10.0-50.0 % Monocytes (%) (Auto) 8.0 0.0-12.0 % Eosinophils (%) (Auto) 0.1 0.0-7.0 % Basophils (%) (Auto) 0.3 0.0-2.0 % Neutrophils # (Auto) 15.1 H 1.6-8.6 10 ^3/uL Lymphocytes # (Auto) 1.0 0.4-5.4 10 ^3/uL Monocytes # (Auto) 1.4 H 0-1.3 10 ^3/uL Eosinophils # (Auto) 0 0-0.8 10 ^3/uL Basophils # (Auto) 0 0-0.2 10 ^3/uL Nucleated Red Blood Cells 0.0 % Sodium Level 133 L 136-145 mmol/L Potassium Level 4.3 3.5-5.1 mmol/L Chloride Level 99 98-107 mmol/L Carbon Dioxide Level 23 20-31 mmol/L Anion Gap 11 5-15 Blood Urea Nitrogen 9 9-23 mg/dL Creatinine 0.59 L 0.700-1.30 mg/dL Glomerular Filtration Rate Calc 118 >90 mL/min BUN/Creatinine Ratio 15.3 10.0-20.0 Serum Glucose 142 H 74-106 mg/dL Lactic Acid Level 2.3 *H 0.4-2.0 mmol/L Calcium Level 9.3 8.7-10.4 mg/dL Total Bilirubin 0.7 0.2-1.0 mg/dL Aspartate Amino Transferase (AST) 18 13-40 U/L Alanine Aminotransferase (ALT) 17 7-40 U/L Alkaline Phosphatase 99 46-116 U/L Total Protein 7.2 5.7-8.2 g/dL Albumin 4.4 3.2-4.8 g/dL Lipase 36 12-53 U/L Current Medications Medications (Trade) Dose Ordered Sig/Rhonda Route Start Time Stop Time Status Last Admin Sodium Chloride 1,000 ml @ 1,000 mls/hr Q1H ONCE IVB 12/27/24 03:15 12/27/24 04:14 DC 12/27/24 03:56 Time of 1ST Reevaluation: 03:36 Reevaluation 1ST: Unchanged Patient Education/Counseling: Other (Non-Verbal) Family Education/Counseling: No Family Present SEPSIS Sepsis Screen Physician Orders Urinalysis (12/27/24 03:05) Blood Culture (12/27/24 03:05) Chest Portable (12/27/24 03:05) Pulse Oximetry (12/27/24 03:05) Electrocardigram (12/27/24 04:11) Ct Ab Pel Wo Con-No Oral Or Iv (12/27/24 03:05) Piperacillin-Tazob 3.375gm (Zosyn 3.375g (12/27/24 05:15) Azithromycin 500mg/ 250ml (Zithromax 50 (12/27/24 05:15) Vital Signs Date Time Temp Pulse Resp B/P (MAP) Pulse Ox O2 Delivery O2 Flow Rate FiO2 12/27/24 04:00 98.9 113 39 173/93 (119) 94 98.9 12/27/24 03:45 Room Air* 0 21 12/27/24 03:04 97.9 114 16 124/93 (103) 95 97.9 12/27/24 02:58 113 Laboratory Tests Test 12/27/24 03:27 Lactic Acid Level 2.3 mmol/L (0.4-2.0) *H White Blood Count 17.6 10^3/uL (4.4-10.8) H Medications Medications Dose Ordered Sig/Rhonda Route Start Time Stop Time Status Last Admin Dose Admin Sodium Chloride 1,000 ml @ 1,000 mls/hr Q1H ONCE IVB 12/27/24 03:15 12/27/24 04:14 DC 12/27/24 03:56 Departure 1 Departure Time of Disposition: 05:18 Impression: Primary Impression: Aspiration pneumonia Additional Impressions: Huntingtons chorea Leukocytosis Vomiting Disposition: 09 ADMITTED INPATIENT Condition: Guarded Comments Abdominal Pain, Nausea, and Vomiting in a Patient with Horry's Disease Chief Complaint: Abdominal pain, nausea, and vomiting for 1 day History of Present Illness: Patient is a 49-year-old male with a history of Clifton's chorea disease who was brought in by ambulance from home after experiencing episodes of abdominal pain, nausea, and vomiting for the past day. EMS reported rhonchorous breath sounds during transport. The patient appears to be bed-bound with contracted extremities and has a G-tube in place for feeding. His presentation is concerning for aspiration in the setting of vomiting, with subsequent development of pneumonia as evidenced by tachypnea and bilateral basilar rhonchi on examination. Review of Systems: Constitutional: Unable to fully assess due to patient's baseline neurological status. Respiratory: Tachypnea, rhonchi at bilateral bases. Gastrointestinal: Abdominal pain, nausea, vomiting. Neurological: Baseline contracted extremities due to Clifton's disease. Medications: G-tube feedings Home medications not specified in purse seiner Allergies: No known allergies documented in purse seiner Past Medical History: Clifton's chorea disease Likely dysphagia requiring G-tube placement Past Surgical History: G-tube placement, date unknown Vital Signs: Tachypnea noted, specific respiratory rate not documented Other vital signs not documented in purse seiner Physical Exam: General: Bed-bound appearance with contracted extremities. HEENT: G-tube intact. Respiratory: Tachypneic with rhonchi auscultated at bilateral lung bases. Abdomen: Limited examination details provided. Neurological: Contracted extremities consistent with advanced Horry's chorea. Lab Results: CBC: WBC elevated at 17.6 K/?L, indicating leukocytosis Chemistry panel: Unremarkable Lactic acid: Slightly elevated at 2.3 mmol/L Imaging and Other Relevant Results: Chest X-ray: No acute pathology CT Chest/Abdomen/Pelvis: Peribronchial thickening and distal esophageal wall thickening. No other acute pathology identified. Medical Decision Making: Summary Statement: 49-year-old male with Horry's disease, presenting with abdominal pain, nausea, and vomiting for 1 day, now with clinical and laboratory findings consistent with aspiration pneumonia and dehydration. Problem List: 1. Aspiration pneumonia, 2. Dehydration, 3. Nausea and vomiting, 4. Clifton's chorea disease (chronic). Differential Diagnosis: For respiratory symptoms: Aspiration pneumonia, community-acquired pneumonia, bronchitis. For GI symptoms: Gastroenteritis, medication side effect, bowel obstruction, gastritis, esophagitis. ED Course: Patient received IV fluid resuscitation for dehydration. Broad- spectrum antibiotic coverage initiated with IV Zosyn and azithromycin for presumed aspiration pneumonia. Laboratory studies revealed leukocytosis and mildly elevated lactic acid. Imaging studies performed to evaluate for pneumonia and intra-abdominal pathology. Assessment and Plan: 1. Aspiration Pneumonia: - Clinical presentation of tachypnea, rhonchi, leukocytosis, and peribronchial thickening on CT in the setting of vomiting is consistent with aspiration pneumonia - Continue IV Zosyn and azithromycin - Monitor oxygen saturation and respiratory status - Consider pulmonary consultation if respiratory status deteriorates 2. Dehydration: - Continue IV fluid resuscitation - Monitor input/output - Follow electrolytes 3. Nausea and Vomiting: - Hold G-tube feedings temporarily - Consider antiemetic therapy as needed - Evaluate G-tube function and placement 4. Clifton's Disease (Chronic): - Continue home management - Neurology consultation may be beneficial for medication management Disposition: Admission to medical floor for continued management of aspiration pneumonia and dehydration. Will require close monitoring of respiratory status and continued IV antibiotics and fluids. Additional Notes: Patient requires admission for aspiration pneumonia, dehydration, and vomiting Billing Information: ICD-10: J69.0 - Pneumonitis due to inhalation of food and vomit ICD-10: R11.2 - Nausea with vomiting, unspecified ICD-10: E86.0 - Dehydration ICD-10: G10 - Horry's disease Critical Care Note Critical Care Time?: Yes (35 min-critical care time only) Critical care comment: Total critical care time: Approximately 36 minutes Due to a high probability of clinically significant, life threatening deteri oration, the patient required my highest level of preparedness to intervene emergently and I personally spent this critical care time directly and personally managing the patient. This critical care time included obtaining a history; examining the patient; pulse oximetry; ordering and review of studies; arranging urgent treatment with development of a management plan; evaluation of patient's response to treatment; frequent reassessment; and, discussions with other providers. This critical care time was performed to assess and manage the high probability of imminent, life-threatening deterioration that could result in multi-organ nickie lure. It was exclusive of separately billable procedures and treating other patients. Stability Stability form required: No Heart Score Heart Score: Heart Score Response (Comments) Value History Slightly Suspicious 0 EKG Normal 0 Age 45-64 1 Risk Factors No known risk factors 0 Troponin N/A 0 Total 1 I personally scribed for CLARENCE TORRES MD ([email or web address]) on 12/27/24 at 03:11. Electronically submitted by Bronson Barrett ([email or web address]). I personally scribed for CLARENCE TORRES MD ([email or web address]) on 12/27/24 at 03:16. Electronically submitted by Bronson Barrett ([email or web address]). I personally scribed for CLARENCE TORRES MD ([email or web address]) on 12/27/24 at 03:17. Electronically submitted by Bronson Barrett ([email or web address]). CLARENCE TORRES MD Dec 27, 2024 03:11
[2024-12-27 03:54] LABS: Hematocrit 44.1 % (41.0-53.0); Hemoglobin 15.2 g/dL (13.5-17.5); Mean Corpuscular Hemoglobin 29.8 pg (28.0-32.0); Mean Corpuscular Volume 86.6 fL (80.0-100.0); Nucleated Red Blood Cells % 0.0 %
[2024-12-27] MEDS: SODIUM CHLORIDE 0.9% 1,000 ML IVB ONE (03:56)
[2024-12-27 04:13] LABS: Alanine Aminotransferase 17 U/L (7-40); Albumin 4.4 g/dL (3.2-4.8); Alkaline Phosphatase 99 U/L (46-116); Anion Gap 11 (5-15); BUN/Creatinine Ratio 15.3 (10.0-20.0); Bilirubin, Total 0.7 mg/dL (0.2-1.0); Blood Urea Nitrogen 9 mg/dL (9-23); Calcium 9.3 mg/dL (8.7-10.4); Carbon Dioxide 23 mmol/L (20-31); Chloride 99 mmol/L (98-107); Glucose 142 mg/dL (74-106); Lipase 36 U/L (12-53); Potassium 4.3 mmol/L (3.5-5.1); Sodium 133 mmol/L (136-145); Total Protein 7.2 g/dL (5.7-8.2)
[2024-12-27] MEDS: IOHEXOL 300 MG/ML 100ML BOTTLE IJ ONE (04:13)
[2024-12-27 04:18] LABS: Lactic Acid w/Reflex 2.3 mmol/L (0.4-2.0)
--- NOTE | 2024-12-27 04:44 | DVH ---
EXAM: XY CHEST PORTABLE HISTORY: SOB COMPARISON: XY CHEST PORTABLE on DOS: 09/25/23, XY CHEST PORTABLE on DOS: 11/15/22, XY CHEST PORTABLE on DOS: 11/12/22, XY CHEST PORTABLE on DOS: 11/11/22, XY CHEST PORTABLE on DOS: 11/09/22 TECHNIQUE: Portable AP view of the chest was performed. FINDINGS: Lung volumes are low. No pneumothorax, consolidative infiltrates, or pulmonary edema. The heart is vitaly rderline enlarged. IMPRESSION: No acute intrathoracic process.
--- NOTE | 2024-12-27 04:50 | DVH ---
EXAM: CT CT AB PEL WO CON-NO ORAL OR IV HISTORY: abd pain COMPARISON: CT CT AB PEL WO CON-NO ORAL OR IV on DOS: 09/20/23, CT CT AB PEL WO CON-NO ORAL OR IV on D OS: 10/20/22 TECHNIQUE: Helical CT images of the abdomen and pelvis were performed without IV contrast. Sagittal a nd coronal reformatted images were obtained. This CT exam was performed using one or more of the foll owing dose reduction techniques: Automated exposure control, adjustment of the mA and/or kv according to patient size, or the use of iterative reconstruction techniques. Radiation Dose: Abdomen/Pelvis: CTDIvol 17.02 mGy, DLP 1126.91 mGy*cm. FINDINGS: CT abdomen: There is moderate peribronchial thickening in the lung bases. The heart is not enlarged. There is distal esophageal wall thickening. There are bilateral nonobstructing renal calculi. The non contrast liver, spleen, gallbladder, pancreas, and adrenal glands are unremarkable. Of colon is inter posed anterior to the liver. No abdominal aortic aneurysm. PEG tube is in place. CT pelvis: No abnormal bowel dilatation, free air, or free fluid. The appendix contains an appendicol ith and does not appear dilated or inflamed. There are small calculi urinary bladder lumen. The pro state is upper limits of normal in size. There is a small fatty left inguinal indirect hernia. There is moderate lumbar degenerative disc disease. There is mild osteoarthritis of the hips. IMPRESSION: 1. Peribronchial thickening in the lung bases consistent with reactive airways disease. 2. Distal esophageal wall thickening suggestive of esophagitis. PEG tube re-identified. 3. Nonobstructing bilateral nephrolithiasis. There are also calculi in the dependent portion of the u rinary bladder. 4. No evidence of bowel obstruction, acute appendicitis, or other acute process in the abdomen or pel vis.
[2024-12-27] MEDS: PIPERACILLIN-TAZOB 3.375GM 100 ML IV ONE (05:33)
[2024-12-27] MEDS: AZITHROMYCIN 500MG/ 250ML 250 ML IV ONE (06:33)
--- NOTE | 2024-12-27 07:17 | ECG ---
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
--- NOTE | 2024-12-27 07:44 | DVHHP2 ---
History of Present Illness Reason for Visit: Abdomnial pain History of Present Illness 49-year-old male with past medical history of [place]'s disease, bed-bound, G-tube dependent, nonverbal, presents to the ED via EMS with abdominal pain, nausea, and vomiting for the past day. Per EMS, the patient's baseline includes productive cough, frequent yelling, grunting, and drooling. Nursing staff reports that he lives at home with his . reported G-tube was noted to be leaking clear fluid. Labs no notable for WBC 17.6 and lactic acid 2.3. Chest x-ray shows no acute intrathoracic process. CT abdomen and pelvis revealed peribronchial thickening consistent with reactive airway disease, distal esophageal wall thickening suggestive of esophagitis, non obstructing bilateral nephrolithiasis, and bladder calculi. No evidence of bowel obstruction or acute intra-abdominal pathology. Past Medical History As stated in HPI Past Surgical History G-tube Past Social History The patient lives at home, denies smoking, alcohol or illicit drugs abuse. Review of Systems Constitutional: Yes: Malaise Eyes: No: Pain, Vision change, Conjunctivae inflammation, Eyelid inflammation, Other, Redness ENT: No: Ear pain, Ear discharge, Nose pain, Nose discharge, Nose congestion, Mouth pain, Mouth swelling, Throat pain, Throat swelling, Other Respiratory: Cough Cardiovascular: No: Chest Pain, Palpitations, Orthopnea, Paroxysmal Noc. Dyspnea, Edema, Lt Headedness, Other Gastrointestinal: Nausea, Vomiting, Abdominal Pain; No: Diarrhea, Constipation, Melena, Hematochezia, Other Genitourinary: No Dysuria, No Frequency, No Incontinence, No Hematuria, No Retention, No Other Musculoskeletal: No: other, neck pain, shoulder pain, arm pain, back pain, hand pain, leg pain, foot pain Skin: No: Rash, Lesions, Jaundice, Bruising, Other Neurological: No: Weakness, Numbness, Incoordination, Change in speech, Confusion, Seizures, Other Allergies: Coded Allergies: NO KNOWN ALLERGIES (Unverified , 11/06/22) Exam Vital Signs Vital Signs Date Time Temp Pulse Resp B/P (MAP) Pulse Ox O2 Delivery O2 Flow Rate FiO2 12/27/24 06:00 120 23 153/102 (119) 99 12/27/24 04:00 98.9 98.9 12/27/24 03:45 Room Air* 0 21 General Appearance: Other (Adult male, bed-bound, nonverbal, appears ill and uncomfortable) HEENT: Atraumatic, Mucous membr. moist/pink Respiratory: Other (Productive cough, rales) Cardiovascular: Regular rate, Normal S1, Normal S2 Abdominal: Normal bowel sounds, Other (Soft, mildly distended, tenderness to palpation in epigastric region, no rebound or guarding. G-tube site leaking clear liquid) Extremities: No clubbing, No cyanosis Skin: No rashes, No breakdown Neuro: Other (Nonverbal, grunting, baseline per caregiver. ) Labs/Xrays Labs Test 12/27/24 05:29 12/27/24 03:27 Range/Units Lactic Acid Level 2.3 *H 0.4-2.0 mmol/L White Blood Count 17.6 H 4.4-10.8 10^3/uL Red Blood Count 5.10 4.5-5.90 10^6/uL Hemoglobin 15.2 13.5-17.5 g/dL Hematocrit 44.1 41.0-53.0 % Mean Corpuscular Volume 86.6 80.0-100.0 fL Mean Corpuscular Hemoglobin 29.8 28.0-32.0 pg Mean Corpuscular Hemoglobin Concent 34.4 32.0-36.0 g/dL Red Cell Distribution Width 14.3 11.8-14.3 % Platelet Count 319 140-450 10^3/uL Mean Platelet Volume 8.4 6.9-10.8 fL Neutrophils (%) (Auto) 86.0 H 37.0-80.0 % Lymphocytes (%) (Auto) 5.6 L 10.0-50.0 % Monocytes (%) (Auto) 8.0 0.0-12.0 % Eosinophils (%) (Auto) 0.1 0.0-7.0 % Basophils (%) (Auto) 0.3 0.0-2.0 % Neutrophils # (Auto) 15.1 H 1.6-8.6 10 ^3/uL Lymphocytes # (Auto) 1.0 0.4-5.4 10 ^3/uL Monocytes # (Auto) 1.4 H 0-1.3 10 ^3/uL Eosinophils # (Auto) 0 0-0.8 10 ^3/uL Basophils # (Auto) 0 0-0.2 10 ^3/uL Nucleated Red Blood Cells 0.0 % Sodium Level 133 L 136-145 mmol/L Potassium Level 4.3 3.5-5.1 mmol/L Chloride Level 99 98-107 mmol/L Carbon Dioxide Level 23 20-31 mmol/L Anion Gap 11 5-15 Blood Urea Nitrogen 9 9-23 mg/dL Creatinine 0.59 L 0.700-1.30 mg/dL Glomerular Filtration Rate Calc 118 >90 mL/min BUN/Creatinine Ratio 15.3 10.0-20.0 Serum Glucose 142 H 74-106 mg/dL Calcium Level 9.3 8.7-10.4 mg/dL Total Bilirubin 0.7 0.2-1.0 mg/dL Aspartate Amino Transferase (AST) 18 13-40 U/L Alanine Aminotransferase (ALT) 17 7-40 U/L Alkaline Phosphatase 99 46-116 U/L Total Protein 7.2 5.7-8.2 g/dL Albumin 4.4 3.2-4.8 g/dL Lipase 36 12-53 U/L PROCEDURE(s): ABPL - CT AB PEL WO CON-NO ORAL OR IV REASON: abd pain ORDER NUMBER(s): [id number], ACCESSION NUMBER(s): [id number] EXAM: CT CT AB PEL WO CON-NO ORAL OR IV HISTORY: abd pain COMPARISON: CT CT AB PEL WO CON-NO ORAL OR IV on DOS: 09/20/23, CT CT AB PEL WO CON-NO ORAL OR IV on DOS: 10/20/22 TECHNIQUE: Helical CT images of the abdomen and pelvis were performed without IV contrast. Sagittal and coronal reformatted images were obtained. This CT exam was performed using one or more of the following dose reduction techniques: Automated exposure control, adjustment of the mA and/or kv according to patient size, or the use of iterative reconstruction techniques. Radiation Dose: Abdomen/Pelvis: CTDIvol 17.02 mGy, DLP 1126.91 mGy*cm. FINDINGS: CT abdomen: There is moderate peribronchial thickening in the lung bases. The heart is not enlarged. There is distal esophageal wall thickening. There are bilateral nonobstructing renal calculi. The noncontrast liver, spleen, gallbladder, pancreas, and adrenal glands are unremarkable. Of colon is interposed anterior to the liver. No abdominal aortic aneurysm. PEG tube is in p lace. CT pelvis: No abnormal bowel dilatation, free air, or free fluid. The appendix contains an appendicolith and does not appear dilated or inflamed. There are small calculi urinary bladder lumen. The prostate is upper limits of normal in size. There is a small fatty left inguinal indirect hernia. There is moderate lumbar degenerative disc disease. There is mild osteoarthritis of the hips. IMPRESSION: 1. Peribronchial thickening in the lung bases consistent with reactive airways disease. 2. Distal esophageal wall thickening suggestive of esophagitis. PEG tube re- identified. 3. Nonobstructing bilateral nephrolithiasis. There are also calculi in the dependent portion of the urinary bladder. 4. No evidence of bowel obstruction, acute appendicitis, or other acute process in the abdomen or pelvis. SEPSIS Sepsis Screen Date sepsis recognized/suspect: Dec 27, 2024 Time Sepsis recognized/suspect: 306 Recent Procedure: No On Antibiotic Therapy: No Respiratory Rate >20: No Heart Rate >90: No Temp<36 C (96.8 F) or >38.3 C: No SBP <90 or MAP <65 mmHG: No New Acute Mental Status Change: No Is the patient on CPAP, BIPAP,: No Physician Orders Urinalysis (12/27/24 03:05) Blood Culture (12/27/24 03:05) Chest Portable (12/27/24 03:05) Pulse Oximetry (12/27/24 03:05) Ct Ab Pel Wo Con-No Oral Or Iv (12/27/24 03:05) Communication Order (12/27/24 07:39) Respiratory Culture W/ Gs (12/27/24 07:39) Vital Signs Date Time Temp Pulse Resp B/P (MAP) Pulse Ox O2 Delivery O2 Flow Rate FiO2 12/27/24 06:00 120 23 153/102 (119) 99 12/27/24 04:00 98.9 113 39 173/93 (119) 94 98.9 12/27/24 03:45 Room Air* 0 21 12/27/24 03:04 97.9 114 16 124/93 (103) 95 97.9 12/27/24 02:58 113 Laboratory Tests Test 12/27/24 03:27 12/27/24 05:29 Lactic Acid Level 2.3 mmol/L (0.4-2.0) *H 2.3 mmol/L (0.4-2.0) *H White Blood Count 17.6 10^3/uL (4.4-10.8) H Medications Medications Dose Ordered Sig/Rhonda Route Start Time Stop Time Status Last Admin Dose Admin Azithromycin 250 ml @ 125 mls/hr ONCE ONCE IV 12/27/24 05:15 12/27/24 07:14 DC 12/27/24 06:33 125 MLS/HR Piperacillin Sod/ Tazobactam Sod 100 ml @ 100 mls/hr ONCE ONCE IV 12/27/24 05:15 12/27/24 06:14 DC 12/27/24 05:33 100 MLS/HR Sodium Chloride 1,000 ml @ 1,000 mls/hr Q1H ONCE IVB 12/27/24 03:15 12/27/24 04:14 DC 12/27/24 03:56 1,000 MLS/HR Assessment/Plan Assessment/Plan # Rule out Sepsis * Admit to telemetry unit * IV fluid resuscitation * Pancultures * Empiric antibiotics # possible aspiration pneumonia # rule out Covid and influenza * Azithromycin and ceftriaxone * Sputum culture * Repeat X-ray in the morning * DuoNeb treatment # acute abdominal pain # esophagitis # nausea and vomiting # calculus in the kidney # calculus in the bladder * PPI * IV fluid * Antiemetics * Empiric antibiotic 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
[2024-12-27] MEDS ORDERED: ALBUTEROL SULF 2.5 MG/0.5ML(0.5%) NEB SOLN NEB PRN (07:45)
[2024-12-27] MEDS ORDERED: IPRATROPIUM BROM 0.5 MG/2.5ML INH SOL NEB PRN (07:45)
[2024-12-27] MEDS ORDERED: ONDANSETRON HCL 4 MG/2 ML VIAL IV PRN (07:45)
[2024-12-27 08:13] LABS: Urine Budding Yeast MODERATE /hpf (None Seen); Urine Protein, UAD Negative (Negative)
[2024-12-27 09:22] LABS: COVID19 ANTIGEN SOFIA FIA NEGATIVE (NEGATIVE)
[2024-12-27] MEDS: PANTOPRAZOLE 40 MG TAB PO SCH (10:00)
[2024-12-27] MEDS: ENOXAPARIN SOD 40 MG/0.4 ML SYRINGE SC SCH (10:00)
[2024-12-27] MEDS: VALPROIC ACID PO SCH (10:00)
[2024-12-27] MEDS: IPRATROPIUM BROM 0.5 MG/2.5ML INH SOL NEB SCH (10:25)
[2024-12-27] MEDS: ALBUTEROL SULF 2.5 MG/0.5ML(0.5%) NEB SOLN NEB SCH (10:25)
[2024-12-27] MEDS: SODIUM CHLORIDE 0.9% 1,000 ML IV SCH (11:01)
[2024-12-27] MEDS: cefTRIAXone 1GM/50ML D5W 50 ML IV SCH (11:07)
[2024-12-27] MEDS: ACETAMINOPHEN 650 MG RECT SUPP PR ONE (12:03)
[2024-12-27] MEDS: NUTREN 1.0 250 ML BTL GT SCH (14:00)
[2024-12-27] MEDS: ACETAMINOPHEN IV 1000 MG/100ML (10MG/ML) IV ONE (14:24)
--- NOTE | 2024-12-27 17:18 | DVHINCON2 ---
Date of service: Dec 27, 2024 Referring Physician tamia Reason for Consultation Dysfunctioning G-tube History of Present Illness Patient is a 49-year-old male with a history of [place]'s disease nonverbal, with the G-tube, was then noticed to have productive cough, nausea and vomiting, and discharge around the G-tube site. Patient has been drooling. Patient was admitted with suspicion for sepsis, possible aspiration pneumonia and rule out COVID. GI consultation was obtained during the G-tube issues. Past Medical History As above Past Surgical History Noncontributory Family History: FH: [place]'s disease Social History Blood down due to [place]'s disease, nonverbal No tobacco alcohol or recreation drug Allergies: Coded Allergies: NO KNOWN ALLERGIES (Unverified , 11/06/22) Home Meds Reported Medications Nutritional Supplements (Fibersource Hn) Liq, 20 ML TID 09/21/23 Clotrimazole (Topical) (Clotrimazole Anti-Fungal) 1 % Cre, 1 GM TOP BID 09/21/23 Trazodone Hcl (Trazodone Hcl) 50 Mg Tab, 1 TAB GT QHSP PRN for insomnia 09/21/23 Pantoprazole Sodium Sesquihydr (Pantoprazole Sodium) 40 Mg Tab, 1 TAB PO DAILY 09/21/23 Tetrabenazine (Tetrabenazine) 25 Mg Tab, 25 MG GT BID, TAB 10/20/22 Sertraline HCl (Sertraline Hydrochloride) 25 Mg Tab, 25 MG GT, TAB 10/20/22 Haloperidol (Haldol) 5 Mg Tb, 2 MG GT, TAB 10/20/22 Divalproex Sodium (Divalproex Sodium) 250 Mg Tab, 250 MG PO BID for 30 Days, MG 10/20/22 Current Medications Current Medications Medications (Trade) Dose Ordered Sig/Rhonda Route PRN Reason Start Time Stop Time Status Last Admin Sodium Chloride 1,000 ml @ 100 mls/hr Q10H IV 12/27/24 07:45 12/27/24 11:01 Ondansetron HCl (Zofran) 4 mg Q4HP PRN IV NAUSEA / VOMITING 12/27/24 07:45 Enoxaparin Sodium (Lovenox) 40 mg DAILY SC 12/27/24 10:00 12/27/24 10:00 Albuterol (Ventolin Medneb) 2.5 mg Q4HPRN PRN NEB SHORTNESS OF BREATH 12/27/24 07:45 Albuterol (Ventolin Medneb) 2.5 mg Q4HR NEB 12/27/24 10:00 12/27/24 14:20 Ipratropium [place] (Atrovent Medneb) 0.5 mg Q4HPRN PRN NEB SHORTNESS OF BREATH 12/27/24 07:45 Ipratropium [place] (Atrovent Medneb) 0.5 mg Q4HR NEB 12/27/24 10:00 12/27/24 14:20 Ceftriaxone Sodium 50 ml @ 100 mls/hr DAILY@09 IV 12/27/24 09:00 12/27/24 11:07 Azithromycin 250 ml @ 125 mls/hr DAILY IV 12/28/24 10:00 Enteral Nutritional Formula (Nutren 1.0) 20 ml TID GT 12/27/24 14:00 Pantoprazole Sodium (Protonix Tablet) 40 mg DAILY PO 12/27/24 10:00 Trazodone HCl (Desyrel) 50 mg QHSP PRN GT insomnia 12/27/24 07:45 Patient Own Medication 250 BID PO 12/27/24 10:00 12/27/24 10:50 DC Metronidazole 100 ml @ 100 mls/hr Q8HR IV 12/27/24 14:00 12/27/24 15:17 Valproate Sodium (Depakene Oral Nithya) 250 mg BID PO 12/27/24 22:00 Review of Systems Review of systems as per HPI Vital Signs Vital Signs Date Time Temp Pulse Resp B/P (MAP) Pulse Ox O2 Delivery O2 Flow Rate FiO2 12/27/24 16:00 99.2 121 24 137/87 (104) 96 99.2 12/27/24 10:25 Nasal Cannula 3.0 12/27/24 10:25 32 Physical Exam Awake sitting up in bed no distress NC/AT EOMI moist mucous membranes Regular rate and rhythm Decreased breath sounds bilaterally anteriorly Soft nontender nondistended G-tube in place, no discharge seen No clubbing cyanosis or edema Labs/Diagnostic Data Labs Test 12/27/24 08:30 12/27/24 08:00 12/27/24 05:29 12/27/24 03:27 Range/Units Influenza Type A Antigen Negative Negative Influenza Type B Antigen Negative Negative SARS-CoV-2 Antigen (Rapid) Negative NEGATIVE Urine Color Yellow Yellow Urine Clarity Turbid H Clear Urine pH 7.0 5.0-9.0 Urine Specific [place] 1.020 1.001-1.035 Urine Protein Negative Negative Urine Ketones Negative Negative Urine Blood Negative Negative /uL Urine Nitrite Negative Negative Urine Bilirubin Negative Negative Urine Urobilinogen Normal Negative mg/dL Urine Leukocyte Esterase Negative Negative /uL Urine RBC 7 0 - 3 /hpf Urine Microscopic WBC 8 H 0-3 /HPF Urine Squamous Epithelial Cells Few <5 /hpf Urine Bacteria None seen None Seen /hpf Urine Mucus Few None Seen Urine Yeast (Budding) Moderate None Seen /hpf Urine Glucose Normal Normal mg/dL Lactic Acid Level 2.3 *H 0.4-2.0 mmol/L White Blood Count 17.6 H 4.4-10.8 10^3/uL Red Blood Count 5.10 4.5-5.90 10^6/uL Hemoglobin 15.2 13.5-17.5 g/dL Hematocrit 44.1 41.0-53.0 % Mean Corpuscular Volume 86.6 80.0-100.0 fL Mean Corpuscular Hemoglobin 29.8 28.0-32.0 pg Mean Corpuscular Hemoglobin Concent 34.4 32.0-36.0 g/dL Red Cell Distribution Width 14.3 11.8-14.3 % Platelet Count 319 140-450 10^3/uL Mean Platelet Volume 8.4 6.9-10.8 fL Neutrophils (%) (Auto) 86.0 H 37.0-80.0 % Lymphocytes (%) (Auto) 5.6 L 10.0-50.0 % Monocytes (%) (Auto) 8.0 0.0-12.0 % Eosinophils (%) (Auto) 0.1 0.0-7.0 % Basophils (%) (Auto) 0.3 0.0-2.0 % Neutrophils # (Auto) 15.1 H 1.6-8.6 10 ^3/uL Lymphocytes # (Auto) 1.0 0.4-5.4 10 ^3/uL Monocytes # (Auto) 1.4 H 0-1.3 10 ^3/uL Eosinophils # (Auto) 0 0-0.8 10 ^3/uL Basophils # (Auto) 0 0-0.2 10 ^3/uL Nucleated Red Blood Cells 0.0 % Sodium Level 133 L 136-145 mmol/L Potassium Level 4.3 3.5-5.1 mmol/L Chloride Level 99 98-107 mmol/L Carbon Dioxide Level 23 20-31 mmol/L Anion Gap 11 5-15 Blood Urea Nitrogen 9 9-23 mg/dL Creatinine 0.59 L 0.700-1.30 mg/dL Glomerular Filtration Rate Calc 118 >90 mL/min BUN/Creatinine Ratio 15.3 10.0-20.0 Serum Glucose 142 H 74-106 mg/dL Calcium Level 9.3 8.7-10.4 mg/dL Total Bilirubin 0.7 0.2-1.0 mg/dL Aspartate Amino Transferase (AST) 18 13-40 U/L Alanine Aminotransferase (ALT) 17 7-40 U/L Alkaline Phosphatase 99 46-116 U/L Total Protein 7.2 5.7-8.2 g/dL Albumin 4.4 3.2-4.8 g/dL Lipase 36 12-53 U/L Assessment 1. Clifton's disease 2. Nonverbal 3. Question aspiration pneumonia/sepsis 4. Esophagitis 5. History G-tube site infection? Problems(with codes): (1) Upper GI bleed (2) Sepsis (3) Ascites (4) Abdominal pain (5) Gastrostomy site leak (6) Kidney stones (7) Hiatal hernia with GERD and esophagitis (8) Vomiting (9) [place] chorea (10) Leukocytosis (11) Aspiration pneumonia Plan/Recommendation 1. Consider replacement of G-tube at bedside or with endoscopy 2. Continue antibiotics 3. Follow labs 4. Supportive care 5. Continue current medications 6. I will be be signing out to Dr. Mejia 7. Follow up with culture Plan discussed with: Other TING OLSON MD Dec 27, 2024 17:18
[2024-12-27] MEDS: VALPROIC ACID 250 MG/5 ML ORAL SOLN PO SCH (22:00)
[2024-12-28] VITALS (22 sets, daily range): BP systolic 123–133; BP diastolic 80–93; PULSE 93–109; RESP 16–21; TEMP 98–98.9; O2SAT 93–100
[2024-12-28 06:59] LABS: Alanine Aminotransferase 17 U/L (7-40); Albumin 3.9 g/dL (3.2-4.8); Alkaline Phosphatase 86 U/L (46-116); Anion Gap 11 (5-15); BUN/Creatinine Ratio 25.0 (10.0-20.0); Bilirubin, Total 0.7 mg/dL (0.2-1.0); Blood Urea Nitrogen 11 mg/dL (9-23); Carbon Dioxide 23 mmol/L (20-31); Chloride 104 mmol/L (98-107); Glucose 100 mg/dL (74-106); Potassium 3.7 mmol/L (3.5-5.1); Sodium 138 mmol/L (136-145); Total Protein 6.3 g/dL (5.7-8.2)
[2024-12-28 07:00] LABS: Calcium 8.6 mg/dL (8.7-10.4)
[2024-12-28 07:03] LABS: Hematocrit 41.5 % (41.0-53.0); Hemoglobin 14.1 g/dL (13.5-17.5); Mean Corpuscular Hemoglobin 30.1 pg (28.0-32.0); Mean Corpuscular Volume 88.8 fL (80.0-100.0); Nucleated Red Blood Cells % 1.0 %
--- NOTE | 2024-12-28 08:08 | DVH ---
INDICATION: pneumonia TECHNIQUE: Frontal view of the chest. COMPARISON: XY CHEST PORTABLE on DOS: 12/27/24, XY CHEST PORTABLE on DOS: 09/25/23, XY CHEST PORTABLE o n DOS: 11/15/22, XY CHEST PORTABLE on DOS: 11/12/22, XY CHEST PORTABLE on DOS: 11/11/22 FINDINGS: Scarring right upper lobe. The heart and mediastinal contours are grossly unremarkable. There is no evidence of pleural disease. The bony structures of the chest are intact without fracture. IMPRESSION: 1. No evidence of acute disease.
[2024-12-28] MEDS: AZITHROMYCIN 500MG/ 250ML 250 ML IV SCH (09:42)
[2024-12-28] MEDS ORDERED: DOXYCYCLINE 100MG/100ML 100 ML IV SCH (13:00)
--- NOTE | 2024-12-28 13:52 | DVHPN2 ---
Subjective No changes Changes from previous H/P or p: No Changes Eyes: No Pain, No Vision change, No Conjunctivae inflammation, No Eyelid inflammation, No Other, No Redness ENT: No Ear pain, No Ear discharge, No Nose pain, No Nose discharge, No Nose congestion, No Mouth pain, No Mouth swelling, No Throat pain, No Throat swelling, No Other Cardiovascular: No Chest Pain, No Palpitations, No Orthopnea, No Paroxysmal Noc. Dyspnea, No Edema, No Lt Headedness, No Other Respiratory: Cough Gastrointestinal: Nausea, Vomiting, Abdominal Pain; No Diarrhea, No Constipation, No Melena, No Hematochezia, No Other Genitourinary: No Dysuria, No Frequency, No Incontinence, No Hematuria, No Retention, No Other Musculoskeletal: No other, No neck pain, No shoulder pain, No arm pain, No back pain, No hand pain, No leg pain, No foot pain Skin: No Rash, No Lesions, No Jaundice, No Bruising, No Other Objective Vitals Vital Signs Date Time Temp Pulse Resp B/P (MAP) Pulse Ox O2 Delivery O2 Flow Rate FiO2 12/28/24 10:59 99 20 99 12/28/24 10:51 Nasal Cannula 3.0 12/28/24 10:51 32 12/28/24 08:52 98.9 123/80 (94) 98.9 Intake/Output Intake and Output 12/28/24 07:00 Intake Total 2000 ml Output Total 1150 ml Balance 850 ml IV Total 2000 ml Output Urine Total 1150 ml General Appearance: Alert, Oriented X3, Cooperative, No acute distress, mild distress, moderate distress, severe distress, Other Lungs: Clear to auscultation, Normal air movement, Other Cardiovascular: Regular rate, Normal S1, Normal S2, No murmurs, Gallops, Rubs, Other Abdomen: Normal bowel sounds, Soft, No tenderness, No hepatospenomegaly, No masses, Other Medications Current Medications Medications Dose Ordered Sig/Rhonda Route Start Time Stop Time Status Last Admin Dose Admin Sodium Chloride 1,000 ml @ 100 mls/hr Q10H IV 12/27/24 07:45 12/28/24 13:47 100 MLS/HR Ondansetron HCl 4 mg Q4HP PRN IV 12/27/24 07:45 Enoxaparin Sodium 40 mg DAILY SC 12/27/24 10:00 12/28/24 09:48 40 MG Albuterol 2.5 mg Q4HPRN PRN [facility] 12/27/24 07:45 Albuterol 2.5 mg Q4HR [facility] 12/27/24 10:00 12/28/24 10:51 2.5 MG Ipratropium [place] 0.5 mg Q4HPRN PRN [facility] 12/27/24 07:45 Ipratropium [place] 0.5 mg Q4HR [facility] 12/27/24 10:00 12/28/24 10:51 0.5 MG Ceftriaxone Sodium 50 ml @ 100 mls/hr DAILY@09 IV 12/27/24 09:00 12/28/24 08:30 100 MLS/HR Azithromycin 250 ml @ 125 mls/hr DAILY IV 12/28/24 10:00 12/28/24 09:42 125 MLS/HR Enteral Nutritional Formula 20 ml TID GT 12/27/24 14:00 Pantoprazole Sodium 40 mg DAILY PO 12/27/24 10:00 Trazodone HCl 50 mg QHSP PRN 12/27/24 07:45 Metronidazole 100 ml @ 100 mls/hr Q8HR IV 12/27/24 14:00 12/28/24 05:14 100 MLS/HR Valproate Sodium 250 mg BID PO 12/27/24 22:00 Laboratory Results Laboratory Tests 12/28/24 04:57 Chemistry Test 12/28/24 04:57 Albumin 3.9 g/dL (3.2-4.8) Calcium Level 8.6 mg/dL (8.7-10.4) L Total Protein 6.3 g/dL (5.7-8.2) LFT Test 12/28/24 04:57 Alanine Aminotransferase (ALT) 17 U/L (7-40) Alkaline Phosphatase 86 U/L (46-116) Aspartate Amino Transferase (AST) 24 U/L (13-40) Total Bilirubin 0.7 mg/dL (0.2-1.0) Urinalysis Test 12/27/24 08:00 Urine Color Yellow (Yellow) Urine Clarity Turbid (Clear) H Urine pH 7.0 (5.0-9.0) Urine Specific [place] 1.020 (1.001-1.035) Urine Protein Negative (Negative) Urine Ketones Negative (Negative) Urine Blood Negative /uL (Negative) Urine Nitrite Negative (Negative) Urine Bilirubin Negative (Negative) Urine Urobilinogen Normal mg/dL (Negative) Urine Leukocyte Esterase Negative /uL (Negative) Urine RBC 7 /hpf (0 - 3) Urine Microscopic WBC 8 /HPF (0-3) H Urine Squamous Epithelial Cells Few /hpf (<5) Urine Bacteria None seen /hpf (None Seen) Urine Mucus Few (None Seen) Urine Yeast (Budding) Moderate /hpf (None Seen) Urine Glucose Normal mg/dL (Normal) Microbiology Microbiology Date/Time Source Procedure Growth Status 12/27/24 08:00 Voided Urine Urine Culture - Preliminary Resulted 12/27/24 03:27 Blood Blood Culture - Preliminary NO GROWTH AFTER 24 HOURS OF INCUBATION. Resulted Labs and/or images reviewed: Labs reviewed by me, Image(s) reviewed by me Assessment/Plan Assessment/Plan PEG tube malfunction Clay's disease Esophagitis Plan Discussed with Dr. Mejia Discussed with RN to flush the PEG tube to check for patency Abdominal KUB with 60 mL Gastrografin injected through PEG tube IV Clinimix recommended We will continue to monitor patient Plan discussed with: Other (RN) Date of Service: Dec 28, 2024 Billing Provider: DESTINEE LOAIZA Common Visit Codes: [id number] INP/OBS CARE(HIGH) DESTINEE LOAIZA Dec 28, 2024 13:52
[2024-12-28] MEDS: GASTROGRAFIN 30 ML SOL ONE (13:55)
[2024-12-28] MEDS ORDERED: CLINIMIX PER PHARMACY 0 ML IV SCH (14:00)
[2024-12-28] MEDS: SODIUM CHLORIDE 0.9% 1,000 ML IV SCH (15:02)
--- NOTE | 2024-12-28 15:07 | DVHPNRES ---
Progress Note Date Seen: Dec 28, 2024 Resident Creating Document: MARIA DOLORES RODRÍGUEZ RESIDENT Has the PT tested + for MRSA If YES, has PT been informed?: No Medical Necessity Reason Pt with a Central, PICC or Fol: No Subjective Review of Systems Mr. 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 Per EMS, the patient's baseline includes productive cough, frequent yelling, grunting, and drooling. Nursing staff reports that he lives at home with his . reported G-tube was noted to be leaking clear fluid. Labs no notable for WBC 17.6 and lactic acid 2.3. Chest x-ray shows no acute intrathoracic process. CT abdomen and pelvis revealed peribronchial thickening consistent with reactive airway disease, distal esophageal wall thickening suggestive of esophagitis, non obstructing bilateral nephrolithiasis, and bladder calculi. No evidence of bowel obstruction or acute intra-abdominal pathology. Today, the patient was examined at the bedside, has productive cough, with yellow-green abundant thick secretions, there was no family on the bedside, the patient is non-verbal, was difficult to obtain more information. Vital signs and labs were reviewed, patient had 101F fever, Labs results showed leukocytosis WBC: [id number]. The patient was initiated on Zocyn and Doxyciclin IV. COVID serology and Influenza results are negative. Lab: Cultures (urine, blood, sputum) and MRSA studies were requested. We will follow up with the results. We follow up this patient closely. ROS: Constitutional: Bed-bound patient, non-verbal Eyes: No: Pain, Vision change, Conjunctivae inflammation, Eyelid inflammation, Other, Redness ENT: No: Ear pain, Ear discharge, Nose pain, Nose discharge, Nose congestion, Mouth pain, Mouth swelling, Throat pain, Throat swelling, Other Respiratory: Cough, shortness of breath. Cardiovascular: No: Chest Pain, Palpitations, Orthopnea, Paroxysmal Noc. Dyspnea, Edema, Lt Headedness, Other Gastrointestinal: Nausea, Vomiting, Abdominal Pain; No: Diarrhea, Constipation, Melena, Hematochezia, Other Genitourinary: No Dysuria, No Frequency, No Incontinence, No Hematuria, No Retention, No Other Musculoskeletal: No: other, neck pain, shoulder pain, arm pain, back pain, hand pain, leg pain, foot pain Skin: No: Rash, Lesions, Jaundice, Bruising, Other Neurological: No: Weakness, Numbness, Incoordination, Change in speech, Confusion, Seizures, Other Allergies: NO KNOWN ALLERGIES. Objective vital signs Vital Sign Date Time Temp Pulse Resp B/P (MAP) Pulse Ox O2 Delivery O2 Flow Rate FiO2 12/28/24 14:38 96 Nasal Cannula* 3 32 12/28/24 14:38 99 18 12/28/24 08:52 98.9 123/80 (94) 98.9 Total Intake and Output 12/27/24 12/27/24 12/28/24 15:00 23:00 07:00 Intake Total 300 ml 100 ml 1600 ml Output Total 1150 ml Balance 300 ml 100 ml 450 ml medications Current Medications Medications Dose Ordered Sig/Rhonda Route Start Time Stop Time Status Last Admin Dose Admin Ondansetron HCl 4 mg Q4HP PRN IV 12/27/24 07:45 Enoxaparin Sodium 40 mg DAILY SC 12/27/24 10:00 12/28/24 09:48 40 MG Albuterol 2.5 mg Q4HPRN PRN NEB 12/27/24 07:45 Albuterol 2.5 mg Q4HR [facility] 12/27/24 10:00 12/28/24 14:38 2.5 MG Ipratropium [place] 0.5 mg Q4HPRN PRN NEB 12/27/24 07:45 Ipratropium [place] 0.5 mg Q4HR [facility] 12/27/24 10:00 12/28/24 14:38 0.5 MG Enteral Nutritional Formula 20 ml TID GT 12/27/24 14:00 Pantoprazole Sodium 40 mg DAILY PO 12/27/24 10:00 Trazodone HCl 50 mg QHSP PRN GT 12/27/24 07:45 Valproate Sodium 250 mg BID PO 12/27/24 22:00 Amino Acids 0 ml @ 0 mls/hr PER PHARMACY IV 12/28/24 14:00 UNV Sodium Chloride 1,000 ml @ 100 mls/hr Q10H IV 12/28/24 14:15 Piperacillin Sod/ Tazobactam Sod 100 ml @ 25 mls/hr Q6H IV 12/28/24 17:00 Doxycycline Hyclate 100 ml @ 50 mls/hr Q12HR@0300,1500 IV 12/28/24 15:00 Examination General Appearance: Adult male, bed-bound, nonverbal, appears ill and uncomfortable. HEENT: Atraumatic, Mucous membr. moist/pink Respiratory: Productive cough, abundant green colored secretions, bilateral lung crackles. Cardiovascular: Regular rate, Normal S1, Normal S2 Abdominal: Normal bowel sounds, Soft, depressive, mildly distended, tenderness to palpation in epigastric region, no rebound or guarding. G-tube site leaking clear liquid) Extremities: No clubbing, No cyanosis, with leg compressive device. Skin: No rashes, No breakdown Neuro: Nonverbal,follow commands with eye (blinking) laboratory and microbiology Laboratory Tests 12/28/24 04:57 Test 12/28/24 04:57 Range/Units Serum Glucose 100 74-106 mg/dL Microbiology Date/Time Source Procedure Growth Status 12/27/24 08:00 Voided Urine Urine Culture - Preliminary Resulted 12/27/24 03:27 Blood Blood Culture - Preliminary NO GROWTH AFTER 24 HOURS OF INCUBATION. Resulted Problem List/Assessment/Plan Problem List/Assessment/Plan Assessment/Plan # Rule out Sepsis * Admit to telemetry unit * IV fluid resuscitation * Pancultures * Empiric antibiotics * Leukocitosis' * Tachycardia * Fever Start: Zocyn IV Doxyciclin 100mg IV # possible aspiration pneumonia Start: Zocyn 3.375g Doxyciclin 100mg # rule out Covid and influenza * Azithromycin and ceftriaxone * Sputum culture * Repeat X-ray in the morning * DuoNeb treatment # acute abdominal pain # esophagitis # nausea and vomiting # calculus in the kidney # calculus in the bladder * PPI * IV fluid * Antiemetics Stopped: Flagyl # Tyrone's disease # bed confinement status Physical therapy. # nonverbal Continue with home medication DVT/PPI prophylaxis Goals of care discussed, more than 35 min spend with the patient. Case discussed with Dr. Bartlett Medical plan discussed with patient and RN. Plan discussed with: Patient My Orders My Orders Orders - MARIA DOLORES RODRÍGUEZ RESIDENT Procedure Category Date Status Time Mrsa Screen ROSS 12/28/24 In Process 11:55 Nasal Tracheal Suction RT 12/28/24 Logged 11:49 Lactic Acid W/ Reflex LAB 12/28/24 Logged Order 14:13 Sodium Chloride 0.9% PHA 12/28/24 In Process 14:15 Piperacillin-Tazob PHA 12/28/24 In Process 3.375gm (Zosyn 3.375g 17:00 Complete Blood Count LAB 12/29/24 Verified 04:00 Comprehensive LAB 12/29/24 Verified Metabolic Panel 04:00 Doxycycline PHA 12/28/24 In Process 100mg/100ml 15:00 MARIA DOLORES RODRÍGUEZ RESIDENT Dec 28, 2024 15:07
[2024-12-28] MEDS: DOXYCYCLINE 100MG/100ML 100 ML IV SCH (15:17)
[2024-12-28] MEDS: PIPERACILLIN-TAZOB 3.375GM 100 ML IV SCH (16:48)
[2024-12-28] MEDS ORDERED: guaiFENesin-DM 100/10mg/5ml SYR PO PRN (17:45)
[2024-12-28] MEDS: ACETYLCYSTEINE 10 %(100MG/ML) SOL 4ML NEB SCH (18:39)
--- NOTE | 2024-12-28 19:59 | DVH ---
CHEST RADIOGRAPH Indication: PEG tube not working Technique: Single frontal view of the chest was obtained Comparison: None FINDINGS: Lines and Tubes: Gastrostomy tube. Injection of 60 mL of Gastrografin through the gastrostomy tube d emonstrated opacification of the stomach proximal small bowel. No free contrast in the peritoneum wa s identified. Lungs: No focal consolidation. Pleura: No effusion. No pneumothorax. Cardiomediastinal contours: Unremarkable Bones: No acute osseous abnormality. IMPRESSION: 1. Contrast noted in the stomach and proximal small bowel consistent with appropriate positioning gas trostomy tube.
[2024-12-28] MEDS ORDERED: CEFEPIME 1GM/ 50ML 50 ML IV SCH (22:00)
[2024-12-28] MEDS ORDERED: DEXTROSE (50%) 50ML SYRG IV SCH (22:00)
[2024-12-28] MEDS: AMINO ACID INFUSION IN D5W 1,000 ML IV SCH (22:23)
[2024-12-29] VITALS (23 sets, daily range): BP systolic 18–148; BP diastolic 51–95; PULSE 72–100; RESP 16–24; TEMP 97.6–98.8; O2SAT 94–100
[2024-12-29] MEDS: ACCU-CHEK COMFORT CURVE STRIP VI SCH (00:35)
[2024-12-29] MEDS: InsuLIN REG 1unit/0.01ml Soln (100units/ml) SC SCH (00:35)
[2024-12-29] MEDS: ACETYLCYSTEINE 10 %(100MG/ML) SOL 4ML NEB SCH (06:01)
[2024-12-29 07:22] LABS: Hematocrit 37.9 % (41.0-53.0); Hemoglobin 12.9 g/dL (13.5-17.5); Mean Corpuscular Hemoglobin 29.9 pg (28.0-32.0); Mean Corpuscular Volume 87.4 fL (80.0-100.0); Nucleated Red Blood Cells % 0.0 %
[2024-12-29 07:33] LABS: Alanine Aminotransferase 14 U/L (7-40); Albumin 3.7 g/dL (3.2-4.8); Alkaline Phosphatase 79 U/L (46-116); Anion Gap 11 (5-15); BUN/Creatinine Ratio 34.9 (10.0-20.0); Blood Urea Nitrogen 15 mg/dL (9-23); Calcium 9.2 mg/dL (8.7-10.4); Carbon Dioxide 26 mmol/L (20-31); Chloride 104 mmol/L (98-107); Glucose 102 mg/dL (74-106); Magnesium 2.0 mg/dL (1.6-2.6); Sodium 141 mmol/L (136-145); Total Protein 6.0 g/dL (5.7-8.2)
[2024-12-29 07:34] LABS: Bilirubin, Total 0.5 mg/dL (0.2-1.0)
[2024-12-29 07:36] LABS: Potassium 3.1 mmol/L (3.5-5.1)
--- NOTE | 2024-12-29 10:59 | DVHPNRES ---
Progress Note Date Seen: Dec 29, 2024 Resident Creating Document: MARIA DOLORES RODRÍGUEZ RESIDENT Has the PT tested + for MRSA If YES, has PT been informed?: No Medical Necessity Reason Pt with a Central, PICC or Fol: No Objective vital signs Vital Sign Date Time Temp Pulse Resp B/P (MAP) Pulse Ox O2 Delivery O2 Flow Rate FiO2 12/29/24 10:04 88 16 100 12/29/24 09:00 98.0 130/87 (101) 98.0 12/29/24 08:00 Nasal Cannula* 2 28 Total Intake and Output 12/28/24 12/28/24 12/29/24 15:00 23:00 07:00 Intake Total 0 ml 0 ml 1028 ml Output Total 700 ml 1700 ml Balance 0 ml -700 ml -672 ml medications Current Medications Medications Dose Ordered Sig/Rhonda Route Start Time Stop Time Status Last Admin Dose Admin Ondansetron HCl 4 mg Q4HP PRN IV 12/27/24 07:45 Enoxaparin Sodium 40 mg DAILY SC 12/27/24 10:00 12/28/24 09:48 40 MG Albuterol 2.5 mg Q4HPRN PRN NEB 12/27/24 07:45 Cancel Albuterol 2.5 mg Q4HR NEB 12/27/24 10:00 12/29/24 09:56 2.5 MG Ipratropium [place] 0.5 mg Q4HPRN PRN [facility] 12/27/24 07:45 Cancel Ipratropium [place] 0.5 mg Q4HR [facility] 12/27/24 10:00 12/29/24 09:56 0.5 MG Enteral Nutritional Formula 20 ml TID GT 12/27/24 14:00 Pantoprazole Sodium 40 mg DAILY PO 12/27/24 10:00 Trazodone HCl 50 mg QHSP PRN GT 12/27/24 07:45 Valproate Sodium 250 mg BID PO 12/27/24 22:00 Amino Acids 0 ml @ 0 mls/hr PER PHARMACY IV 12/28/24 14:00 Sodium Chloride 1,000 ml @ 100 mls/hr Q10H IV 12/28/24 14:15 12/28/24 15:02 100 MLS/HR Piperacillin Sod/ Tazobactam Sod 100 ml @ 25 mls/hr Q6H IV 12/28/24 17:00 12/29/24 05:48 25 MLS/HR Doxycycline Hyclate 100 ml @ 50 mls/hr Q12HR@0300,1500 IV 12/28/24 15:00 12/29/24 03:47 50 MLS/HR Diagnostic Test (Pha) 1 strip Q6HR 12/29/24 00:00 12/29/24 06:43 1 STRIP Insulin Human Regular FOLLOW SLIDING SCALE Q6HR SC 12/29/24 00:00 Dextrose 50 ml UD IV 12/28/24 22:00 Amino Acids 1,000 ml @ 41 mls/hr DAILY@2200 IV 12/28/24 22:00 12/28/24 22:23 41 MLS/HR Guaifenesin/ Dextromethorphan 10 ml Q6H PRN PO 12/28/24 17:45 Acetylcysteine 100 mg Q8HR NEB 12/29/24 06:00 12/29/24 06:01 100 MG laboratory and microbiology Laboratory Tests 12/29/24 05:00 Test 12/29/24 05:00 Range/Units Serum Glucose 102 74-106 mg/dL Microbiology Date/Time Source Procedure Growth Status 12/27/24 08:00 Voided Urine Urine Culture - Preliminary Resulted 12/27/24 03:27 Blood Blood Culture - Preliminary NO GROWTH AFTER 48 HOURS OF INCUBATION. Resulted Problem List/Assessment/Plan Problem List/Assessment/Plan Assessment/Plan # Rule out Sepsis * Admit to telemetry unit * IV fluid resuscitation * Pancultures * Empiric antibiotics * Leukocitosis' * Tachycardia * Fever Start: Zocyn IV Doxyciclin 100mg IV # possible aspiration pneumonia Start: Zocyn 3.375g Doxyciclin 100mg # rule out Covid and influenza * Azithromycin and ceftriaxone * Sputum culture * Repeat X-ray in the morning * DuoNeb treatment # acute abdominal pain # esophagitis # nausea and vomiting # calculus in the kidney # calculus in the bladder * PPI * IV fluid * Antiemetics Stopped: Flagyl # Benewah's disease # bed confinement status Physical therapy. # nonverbal Continue with home medication DVT/PPI prophylaxis Goals of care discussed, more than 35 min spend with the patient. Case discussed with Dr. Bartlett Medical plan discussed with patient and RN. My Orders My Orders Orders - MARIA DLOORES RODRÍGUEZ RESIDENT Procedure Category Date Status Time Mrsa Screen ROSS 12/28/24 In Process 11:55 Nasal Tracheal Suction RT 12/28/24 Logged 11:49 Sodium Chloride 0.9% PHA 12/28/24 In Process 14:15 Piperacillin-Tazob PHA 12/28/24 In Process 3.375gm (Zosyn 3.375g 17:00 Doxycycline PHA 12/28/24 In Process 100mg/100ml 15:00 Guaifenesin-Dextromet PHA 12/28/24 In Process Liquid (Robitussin 17:45 Pulmonary/Critical ELIZABETH 12/28/24 In Process Care Consul 17:37 Acetylcysteine PHA 12/29/24 In Process Inhalation 10% 06:00 * Wound Consult CONS 12/29/24 Transmitted *Consult CONS 12/29/24 Transmitted / 06:23 MARIA DOLORES RODRÍGUEZ RESIDENT Dec 29, 2024 10:59
[2024-12-29] MEDS: POTASSIUM CHL 20MEQ/100ML 100 ML IV ONE (11:01)
--- NOTE | 2024-12-29 11:08 | DVHPNRES ---
Progress Note Date Seen: Dec 29, 2024 Resident Creating Document: MARIA DOLORES RODRÍGUEZ RESIDENT Has the PT tested + for MRSA If YES, has PT been informed?: No Medical Necessity Reason Pt with a Central, PICC or Fol: No Subjective Review of Systems Mr. Cee is a 49-year-old male with past medical history of Winton's disease, bed-bound, G-tube dependent, nonverbal, presents to the ED via EMS with abdominal pain, nausea, and vomiting for the past day. Per EMS, the patient's baseline includes productive cough, frequent yelling, grunting, and drooling. Nursing staff reports that he lives at home with his . reported G-tube was noted to be leaking clear fluid. Labs no notable for WBC 17.6 and lactic acid 2.3. Chest x-ray shows no acute intrathoracic process. CT abdomen and pelvis revealed peribronchial thickening consistent with reactive airway disease, distal esophageal wall thickening suggestive of esophagitis, non obstructing bilateral nephrolithiasis, and bladder calculi. No evidence of bowel obstruction or acute intra-abdominal pathology. Today, the patient was examined at the bedside, has less cough and secretions. There was no family on the bedside, the patient is non-verbal, was difficult to obtain more information. I have tried in 3 occasions to reach out the emergency contact that is on the patient chart without response. Vital signs and labs were reviewed, patient has not has fever since yesterday. Labs results showed improvement of leukocytosis WBC: [id number]. Lab: preliminay Cultures (urine, blood, sputum) result showed negative at 48hrs and COVID and Influenza are negative. We follow up the progress of this patient closely. ROS: Constitutional: Bed-bound patient, non-verbal Eyes: No: Pain, Vision change, Conjunctivae inflammation, Eyelid inflammation, Other, Redness ENT: No: Ear pain, Ear discharge, Nose pain, Nose discharge, Nose congestion, Mouth pain, Mouth swelling, Throat pain, Throat swelling, Other Respiratory: Cough, shortness of breath. Cardiovascular: No: Chest Pain, Palpitations, Orthopnea, Paroxysmal Noc. Dyspnea, Edema, Lt Headedness, Other Gastrointestinal: Nausea, Vomiting, Abdominal Pain; No: Diarrhea, Constipation, Melena, Hematochezia, Other Genitourinary: No Dysuria, No Frequency, No Incontinence, No Hematuria, No Retention, No Other Musculoskeletal: No: other, neck pain, shoulder pain, arm pain, back pain, hand pain, leg pain, foot pain Skin: No: Rash, Lesions, Jaundice, Bruising, Other Neurological: No: Weakness, Numbness, Incoordination, Change in speech, Confusion, Seizures, Other Allergies: NO KNOWN ALLERGIES. Objective vital signs Vital Sign Date Time Temp Pulse Resp B/P (MAP) Pulse Ox O2 Delivery O2 Flow Rate FiO2 12/29/24 10:04 88 16 100 12/29/24 09:00 98.0 130/87 (101) 98.0 12/29/24 08:00 Nasal Cannula* 2 28 Total Intake and Output 12/28/24 12/28/24 12/29/24 15:00 23:00 07:00 Intake Total 0 ml 0 ml 1028 ml Output Total 700 ml 1700 ml Balance 0 ml -700 ml -672 ml medications Current Medications Medications Dose Ordered Sig/Rhonda Route Start Time Stop Time Status Last Admin Dose Admin Ondansetron HCl 4 mg Q4HP PRN IV 12/27/24 07:45 Enoxaparin Sodium 40 mg DAILY SC 12/27/24 10:00 12/29/24 11:03 40 MG Albuterol 2.5 mg Q4HPRN PRN NEB 12/27/24 07:45 Cancel Albuterol 2.5 mg Q4HR [facility] 12/27/24 10:00 12/29/24 09:56 2.5 MG Ipratropium [place] 0.5 mg Q4HPRN PRN NEB 12/27/24 07:45 Cancel Ipratropium [place] 0.5 mg Q4HR [facility] 12/27/24 10:00 12/29/24 09:56 0.5 MG Enteral Nutritional Formula 20 ml TID GT 12/27/24 14:00 Pantoprazole Sodium 40 mg DAILY PO 12/27/24 10:00 Trazodone HCl 50 mg QHSP PRN GT 12/27/24 07:45 Valproate Sodium 250 mg BID PO 12/27/24 22:00 Amino Acids 0 ml @ 0 mls/hr PER PHARMACY IV 12/28/24 14:00 Sodium Chloride 1,000 ml @ 100 mls/hr Q10H IV 12/28/24 14:15 12/29/24 11:03 100 MLS/HR Piperacillin Sod/ Tazobactam Sod 100 ml @ 25 mls/hr Q6H IV 12/28/24 17:00 12/29/24 11:03 25 MLS/HR Doxycycline Hyclate 100 ml @ 50 mls/hr Q12HR@0300,1500 IV 12/28/24 15:00 12/29/24 03:47 50 MLS/HR Diagnostic Test (Pha) 1 strip Q6HR 12/29/24 00:00 12/29/24 06:43 1 STRIP Insulin Human Regular FOLLOW SLIDING SCALE Q6HR SC 12/29/24 00:00 Dextrose 50 ml UD IV 12/28/24 22:00 Amino Acids 1,000 ml @ 41 mls/hr DAILY@2200 IV 12/28/24 22:00 12/28/24 22:23 41 MLS/HR Guaifenesin/ Dextromethorphan 10 ml Q6H PRN PO 12/28/24 17:45 Acetylcysteine 100 mg Q8HR NEB 12/29/24 06:00 12/29/24 06:01 100 MG Examination General Appearance: Adult male, bed-bound, nonverbal, appears ill and uncomfortable. HEENT: Atraumatic, Mucous membr. moist/pink Respiratory: Productive cough, abundant green colored secretions, bilateral lung crackles. Cardiovascular: Regular rate, Normal S1, Normal S2 Abdominal: Normal bowel sounds, Soft, depressive, mildly distended, tenderness to palpation in epigastric region, no rebound or guarding. G-tube in place. Extremities: No clubbing, No cyanosis, with leg compressive device. Skin: No rashes, No breakdown Neuro: Nonverbal, follow commands with eye (blinking) laboratory and microbiology Laboratory Tests 12/29/24 05:00 Test 12/29/24 05:00 Range/Units Serum Glucose 102 74-106 mg/dL Microbiology Date/Time Source Procedure Growth Status 12/27/24 08:00 Voided Urine Urine Culture - Preliminary Resulted 12/27/24 03:27 Blood Blood Culture - Preliminary NO GROWTH AFTER 48 HOURS OF INCUBATION. Resulted Problem List/Assessment/Plan Problem List/Assessment/Plan Assessment/Plan # Rule out Sepsis * Admit to telemetry unit * IV fluid resuscitation * Pancultures * Empiric antibiotics * Leukocitosis' * Tachycardia * Fever Start: Zocyn IV Doxyciclin 100mg IV #Possible aspiration pneumonia Start: Zocyn 3.375g Doxyciclin 100mg # rule out Covid and influenza * Azithromycin and ceftriaxone * Sputum culture * Repeat X-ray in the morning * DuoNeb treatment # Acute abdominal pain # Esophagitis # Nausea and vomiting # calculus in the kidney # calculus in the bladder * PPI * IV fluid * Antiemetics Stopped: Flagyl # Winton's disease # bed confinement status Physical therapy. # nonverbal Continue with home medication DVT/PPI prophylaxis Goals of care discussed, more than 35 min spend with the patient. Case discussed with Dr. Bartlett Medical plan discussed with patient and RN. Plan discussed with: Patient My Orders My Orders Orders - MARIA DOLORES RODRÍGUEZ RESIDENT Procedure Category Date Status Time Mrsa Screen ROSS 12/28/24 In Process 11:55 Nasal Tracheal Suction RT 12/28/24 Logged 11:49 Sodium Chloride 0.9% PHA 12/28/24 In Process 14:15 Piperacillin-Tazob PHA 12/28/24 In Process 3.375gm (Zosyn 3.375g 17:00 Doxycycline PHA 12/28/24 In Process 100mg/100ml 15:00 Guaifenesin-Dextromet PHA 12/28/24 In Process Liquid (Robitussin 17:45 Pulmonary/Critical [facility] 12/28/24 In Process Care Consul 17:37 Acetylcysteine PHA 12/29/24 In Process Inhalation 10% 06:00 * Wound Consult CONS 12/29/24 Transmitted *Consult CONS 12/29/24 Transmitted / 11:05 MARIA DOLORES RODRÍGUEZ RESIDENT Dec 29, 2024 11:08
--- NOTE | 2024-12-29 13:39 | DVHINCON2 ---
Date of service: Dec 29, 2024 Referring Physician MARIA DOLORES RODRÍGUEZ RESIDENT Reason for Consultation Chronic respiratory failure History of Present Illness History Source: Patient, Family, RN Notes, MD Notes Exam Limitations: Clinical condition HPI Patient is a 49-year old gentleman with a history of [place]'s disease and previous admissions who presented with productive cough and nausea. Was seen in the emergency room where the concern was raised for aspiration and pulmonology was consulted to assist in management. Patient is nonverbal and bed bound at home. Home Meds Reported Medications Nutritional Supplements (Fibersource Hn) Liq, 20 ML TID 09/21/23 Clotrimazole (Topical) (Clotrimazole Anti-Fungal) 1 % Cre, 1 GM TOP BID 09/21/23 Trazodone Hcl (Trazodone Hcl) 50 Mg Tab, 1 TAB GT QHSP PRN for insomnia 09/21/23 Pantoprazole Sodium Sesquihydr (Pantoprazole Sodium) 40 Mg Tab, 1 TAB PO DAILY 09/21/23 Tetrabenazine (Tetrabenazine) 25 Mg Tab, 25 MG GT BID, TAB 10/20/22 Sertraline HCl (Sertraline Hydrochloride) 25 Mg Tab, 25 MG GT, TAB 10/20/22 Haloperidol (Haldol) 5 Mg Tb, 2 MG GT, TAB 10/20/22 Divalproex Sodium (Divalproex Sodium) 250 Mg Tab, 250 MG PO BID for 30 Days, MG 10/20/22 Past Medical History Cardiac: No pertinent Hx Pulmonary: No pertinent Hx Central Nervous System: Other ([place]'s disease ) GI: No pertinent Hx Hemotology/Oncology: No pertinent Hx Hepatobiliary: No pertinent Hx Psychiatric: No pertinent Hx Musculoskeletal: No pertinent Hx Rheumotologic: No pertinent Hx Infectious Disease: No peritnent Hx ENT: No pertinent Hx Renal/: No pertinent Hx Endocrine: No pertinent Hx Dermatology: No pertinent Hx Past Surgical History: No pertinent Hx Family History: No pertinent Hx Patient Family History: FH: Clif[place]'s disease Smoker: No Hx (Negative) Alocohol: None Drugs: None Lives with: With family Domestic Violence: Neg Review of Systems Constitutional: No symptom reported Ears, Nose, & Throat: No symptom reported Eyes: No symptom reported Pulmonary/Respiratory: Cough Cardiovascular: No symptom reported Gastrointestinal: No symptom reported Genitourinary: No symptom reported Musculoskeletal: No symptom reported Skin: No symptom reported Psychiatric: No symptom reported Endocrine: No symptom reported Hemotologic/Lymphatic: No symptom reported H&P Exam Vital Signs Vital Signs Date Time Temp Pulse Resp B/P (MAP) Pulse Ox O2 Delivery O2 Flow Rate FiO2 12/29/24 10:04 88 16 100 12/29/24 09:00 98.0 130/87 (101) 98.0 12/29/24 08:00 Nasal Cannula* 2 28 General Appeara: Well developed, Well nourished, Normal Appearance Head Exam: Normal inspection Neck Exam: Normal inspection, Non-tender, Normal alignment Eye Exam: bilateral eye Normal inspection, bilateral eye PERRL, bilateral eye EOMI Ear Exam: bilateral ear Auricle normal, bilateral ear Canal normal, bilateral ear TM normal Nasal Exam: Normal inspection Mouth: Normal Inspection Pulmonary/Respiratory: Normal inspection, Normal breath sounds, Chest non- tender, Lungs clear Cardiovascular/Chest: Normal inspection, Regular rate, Normal Rhythm Peripheral Pulses: 4+ Radial (R), 4+ Radial (L), 4+ Brachial (R), 4+ Brachial (L) Abdominal Exam: Normal bowel sounds Labs/Xrays Labs Test 12/29/24 06:27 12/29/24 05:00 12/28/24 15:10 12/27/24 08:30 Range/Units POC Glucose 109 H 70-106 mg/dl White Blood Count 7.6 # 4.4-10.8 10^3/uL Red Blood Count 4.33 L 4.5-5.90 10^6/uL Hemoglobin 12.9 L 13.5-17.5 g/dL Hematocrit 37.9 L 41.0-53.0 % Mean Corpuscular Volume 87.4 80.0-100.0 fL Mean Corpuscular Hemoglobin 29.9 28.0-32.0 pg Mean Corpuscular Hemoglobin Concent 34.1 32.0-36.0 g/dL Red Cell Distribution Width 14.4 H 11.8-14.3 % Platelet Count 229 140-450 10^3/uL Mean Platelet Volume 8.7 6.9-10.8 fL Neutrophils (%) (Auto) 70.4 37.0-80.0 % Lymphocytes (%) (Auto) 14.1 10.0-50.0 % Monocytes (%) (Auto) 14.3 H 0.0-12.0 % Eosinophils (%) (Auto) 0.5 0.0-7.0 % Basophils (%) (Auto) 0.7 0.0-2.0 % Neutrophils # (Auto) 5.3 1.6-8.6 10 ^3/uL Lymphocytes # (Auto) 1.1 0.4-5.4 10 ^3/uL Monocytes # (Auto) 1.1 0-1.3 10 ^3/uL Eosinophils # (Auto) 0 0-0.8 10 ^3/uL Basophils # (Auto) 0 0-0.2 10 ^3/uL Nucleated Red Blood Cells 0.0 % Sodium Level 141 136-145 mmol/L Potassium Level 3.1 L 3.5-5.1 mmol/L Chloride Level 104 98-107 mmol/L Carbon Dioxide Level 26 20-31 mmol/L Anion Gap 11 5-15 Blood Urea Nitrogen 15 9-23 mg/dL Creatinine 0.43 L 0.700-1.30 mg/dL Glomerular Filtration Rate Calc 130 >90 mL/min BUN/Creatinine Ratio 34.9 H 10.0-20.0 Serum Glucose 102 74-106 mg/dL Calcium Level 9.2 8.7-10.4 mg/dL Phosphorus Level 2.5 2.4-5.1 mg/dL Magnesium Level 2.0 1.6-2.6 mg/dL Total Bilirubin 0.5 0.2-1.0 mg/dL Aspartate Amino Transferase (AST) 20 13-40 U/L Alanine Aminotransferase (ALT) 14 7-40 U/L Alkaline Phosphatase 79 46-116 U/L Total Protein 6.0 5.7-8.2 g/dL Albumin 3.7 3.2-4.8 g/dL Lactic Acid Level 0.8 0.4-2.0 mmol/L Influenza Type A Antigen Negative Negative Influenza Type B Antigen Negative Negative SARS-CoV-2 Antigen (Rapid) Negative NEGATIVE Test 12/27/24 08:00 12/27/24 03:27 Range/Units Urine Color Yellow Yellow Urine Clarity Turbid H Clear Urine pH 7.0 5.0-9.0 Urine Specific [place] 1.020 1.001-1.035 Urine Protein Negative Negative Urine Ketones Negative Negative Urine Blood Negative Negative /uL Urine Nitrite Negative Negative Urine Bilirubin Negative Negative Urine Urobilinogen Normal Negative mg/dL Urine Leukocyte Esterase Negative Negative /uL Urine RBC 7 0 - 3 /hpf Urine Microscopic WBC 8 H 0-3 /HPF Urine Squamous Epithelial Cells Few <5 /hpf Urine Bacteria None seen None Seen /hpf Urine Mucus Few None Seen Urine Yeast (Budding) Moderate None Seen /hpf Urine Glucose Normal Normal mg/dL Lipase 36 12-53 U/L Microbiology Date/Time Source Procedure Growth Status 12/28/24 11:55 Nose MRSA Screen - Final Complete 12/27/24 08:00 Voided Urine Urine Culture - Preliminary Resulted 12/27/24 03:27 Blood Blood Culture - Preliminary NO GROWTH AFTER 48 HOURS OF INCUBATION. Resulted Assessment/Plan Plan Impression Chronic respiratory failure [place]'s disease ? Aspiration Atelectasis Patient seen and examined Events Low oxygen requirements On 2 liters nasal cannula Vital signs stable Labs and imaging reviewed Management Supplemental oxygen Titrate to maintain sats 90% or above Incentive spirometry Aspiration precautions Nasopharyngeal suctioning Empiric antibiotics F/u cultures Bronchodilators Chest PT and mucolytics Monitor renal function Monitor electrolytes Supplement as needed No indication for bronchoscopy Goals of care to be addressed by family DVT prophylaxis Plan discussed with: Spouse CHARLOTTE VAIL MD Dec 29, 2024 13:39
[2024-12-29] MEDS: POTASSIUM PHOSPHATE 22 MEQ in SODIUM CHL 0.9% 100 ML IV ONE (13:40)
--- NOTE | 2024-12-29 20:39 | DVHPN2 ---
Progress Note - Dictate Date Seen: Dec 29, 2024 Has the PT tested + for MRSA If YES, has PT been informed?: No Medical Necessity Reason Pt with a Central, PICC or Fol: No Subjective No new complaints Patient resting comfortably Gastrostomy tube placement x-ray normal vital signs Vital Sign Date Time Temp Pulse Resp B/P (MAP) Pulse Ox O2 Delivery O2 Flow Rate FiO2 12/29/24 20:00 Nasal Cannula* 2 28 12/29/24 17:00 98.8 84 24 146/95 (112) 100 98.8 Total Intake and Output 12/28/24 12/28/24 12/29/24 15:00 23:00 07:00 Intake Total 0 ml 0 ml 1028 ml Output Total 700 ml 1700 ml Balance 0 ml -700 ml -672 ml medications Current Medications Medications Dose Ordered Sig/Rhonda Route Start Time Stop Time Status Last Admin Dose Admin Ondansetron HCl 4 mg Q4HP PRN IV 12/27/24 07:45 Enoxaparin Sodium 40 mg DAILY SC 12/27/24 10:00 12/29/24 11:03 40 MG Albuterol 2.5 mg Q4HPRN PRN NEB 12/27/24 07:45 Cancel Albuterol 2.5 mg Q4HR NEB 12/27/24 10:00 12/29/24 20:20 2.5 MG Ipratropium [place] 0.5 mg Q4HPRN PRN [facility] 12/27/24 07:45 Cancel Ipratropium [place] 0.5 mg Q4HR [facility] 12/27/24 10:00 12/29/24 20:20 0.5 MG Enteral Nutritional Formula 20 ml TID GT 12/27/24 14:00 Pantoprazole Sodium 40 mg DAILY PO 12/27/24 10:00 Trazodone HCl 50 mg QHSP PRN GT 12/27/24 07:45 Valproate Sodium 250 mg BID PO 12/27/24 22:00 Amino Acids 0 ml @ 0 mls/hr PER PHARMACY IV 12/28/24 14:00 Sodium Chloride 1,000 ml @ 100 mls/hr Q10H IV 12/28/24 14:15 12/29/24 11:03 100 MLS/HR Piperacillin Sod/ Tazobactam Sod 100 ml @ 25 mls/hr Q6H IV 12/28/24 17:00 12/29/24 17:39 25 MLS/HR Doxycycline Hyclate 100 ml @ 50 mls/hr Q12HR@0300,1500 IV 12/28/24 15:00 12/29/24 15:52 50 MLS/HR Diagnostic Test (Pha) 1 strip Q6HR 12/29/24 00:00 12/29/24 18:00 1 STRIP Insulin Human Regular FOLLOW SLIDING SCALE Q6HR SC 12/29/24 00:00 Dextrose 50 ml UD IV 12/28/24 22:00 Amino Acids 1,000 ml @ 41 mls/hr DAILY@2200 IV 12/28/24 22:00 12/28/24 22:23 41 MLS/HR Guaifenesin/ Dextromethorphan 10 ml Q6H PRN PO 12/28/24 17:45 Acetylcysteine 100 mg Q8HR NEB 12/29/24 06:00 12/29/24 14:06 100 MG objective General Appearance: Alert, Oriented X3, Cooperative, No acute distress, Lungs: Clear to auscultation, Normal air movement, Other Cardiovascular: Regular rate, Normal S1, Normal S2, No murmurs, Gallops, Rubs, Other Abdomen: Normal bowel sounds, Soft, No tenderness, No hepatospenomegaly, No masses, G-tube site shows some dried secretions laboratory and microbiology Laboratory Tests 12/29/24 05:00 Test 12/29/24 05:00 Range/Units Serum Glucose 102 74-106 mg/dL Problems(with codes): (1) Hiatal hernia with GERD and esophagitis (2) Gastrostomy site leak Prognosis Plan G-tube appears to be in good place Continue local G-tube care Start G-tube feedings Dietary Evaluation Review Comments: 1 TPN Per phamacy to meet 75% of his needs 2.TF Glucerna @50ml/hr (72g pro, 1440kcal 966ml free water supporting 100% of pt's protein and energy needs 3. monitor lab and progress in 3-5 days Expected Outcomes/Goals: Adequate nutrition support. Plan discussed with: Other (Nurse) INDIRA PARKS MD Dec 29, 2024 20:39
[2024-12-29] MEDS: VALPROIC ACID 250 MG/5 ML ORAL SOLN GT SCH (21:45)
[2024-12-30] VITALS (21 sets, daily range): BP systolic 116–164; BP diastolic 82–97; PULSE 82–101; RESP 16–22; TEMP 97.7–99.3; O2SAT 95–100
[2024-12-30] MEDS: ENSURE CLEAR Apple 8oz Carton GT SCH (05:32)
[2024-12-30] MEDS ORDERED: ENSURE CLEAR Apple 8oz Carton PO SCH (06:00)
[2024-12-30 07:02] LABS: Hematocrit 39.2 % (41.0-53.0); Hemoglobin 13.5 g/dL (13.5-17.5); Mean Corpuscular Hemoglobin 30.0 pg (28.0-32.0); Mean Corpuscular Volume 87.1 fL (80.0-100.0); Nucleated Red Blood Cells % 0.0 %
[2024-12-30 07:17] LABS: Alanine Aminotransferase 16 U/L (7-40); Alkaline Phosphatase 75 U/L (46-116); Anion Gap 10 (5-15); BUN/Creatinine Ratio 34.1 (10.0-20.0); Blood Urea Nitrogen 14 mg/dL (9-23); Calcium 9.3 mg/dL (8.7-10.4); Carbon Dioxide 25 mmol/L (20-31); Chloride 102 mmol/L (98-107); Glucose 101 mg/dL (74-106); Magnesium 1.9 mg/dL (1.6-2.6); Sodium 137 mmol/L (136-145); Total Protein 6.3 g/dL (5.7-8.2)
[2024-12-30 07:18] LABS: Albumin 3.8 g/dL (3.2-4.8)
[2024-12-30 07:19] LABS: Bilirubin, Total 0.5 mg/dL (0.2-1.0)
[2024-12-30 07:27] LABS: Potassium 3.2 mmol/L (3.5-5.1)
[2024-12-30] MEDS: POTASSIUM CHL 20MEQ/100ML 100 ML IV ONE (09:30)
[2024-12-30] MEDS ORDERED: POTASSIUM PHOSPHATE 44 MEQ in D5W 5% 250 ML IV ONE (12:00)
[2024-12-30] MEDS: POTASSIUM PHOSPHATE 44 MEQ in D5W 5% 250 ML IV ONE (12:31)
[2024-12-30] MEDS: AMPICILLIN & SULBACTAM SODIUM 3 GM in SODIUM CHL 0.9% 100 ML IV SCH (12:32)
--- NOTE | 2024-12-30 13:15 | DVHPN2 ---
Progress Note - Dictate Date Seen: Dec 30, 2024 Has the PT tested + for MRSA If YES, has PT been informed?: No Medical Necessity Reason Pt with a Central, PICC or Fol: No Subjective No new complaints Patient resting comfortably Gastrostomy tube placement x-ray normal vital signs Vital Sign Date Time Temp Pulse Resp B/P (MAP) Pulse Ox O2 Delivery O2 Flow Rate FiO2 12/30/24 10:24 94 20 100 12/30/24 10:18 Nasal Cannula 2.0 12/30/24 10:18 28 12/30/24 09:00 98.6 141/90 (107) 98.6 Total Intake and Output 12/29/24 12/29/24 12/30/24 15:00 23:00 07:00 Intake Total 0 ml 900 ml 969 ml Output Total 500 ml 1500 ml Balance 0 ml 400 ml -531 ml medications Current Medications Medications Dose Ordered Sig/Rhonda Route Start Time Stop Time Status Last Admin Dose Admin Ondansetron HCl 4 mg Q4HP PRN IV 12/27/24 07:45 Enoxaparin Sodium 40 mg DAILY SC 12/27/24 10:00 12/30/24 09:57 40 MG Albuterol 2.5 mg Q4HPRN PRN NEB 12/27/24 07:45 Cancel Albuterol 2.5 mg Q4HR NEB 12/27/24 10:00 12/30/24 10:18 2.5 MG Ipratropium [place] 0.5 mg Q4HPRN PRN NEB 12/27/24 07:45 Cancel Ipratropium [place] 0.5 mg Q4HR NEB 12/27/24 10:00 12/30/24 10:18 0.5 MG Pantoprazole Sodium 40 mg DAILY PO 12/27/24 10:00 Trazodone HCl 50 mg QHSP PRN GT 12/27/24 07:45 Amino Acids 0 ml @ 0 mls/hr PER PHARMACY IV 12/28/24 14:00 Sodium Chloride 1,000 ml @ 100 mls/hr Q10H IV 12/28/24 14:15 12/29/24 11:03 100 MLS/HR Diagnostic Test (Pha) 1 strip Q6HR 12/29/24 00:00 12/30/24 12:00 1 STRIP Insulin Human Regular FOLLOW SLIDING SCALE Q6HR SC 12/29/24 00:00 Dextrose 50 ml UD IV 12/28/24 22:00 Amino Acids 1,000 ml @ 41 mls/hr DAILY@2200 IV 12/28/24 22:00 12/29/24 21:45 41 MLS/HR Guaifenesin/ Dextromethorphan 10 ml Q6H PRN PO 12/28/24 17:45 Acetylcysteine 100 mg Q8HR NEB 12/29/24 06:00 12/30/24 06:01 100 MG Valproate Sodium 250 mg BID GT 12/29/24 22:00 12/30/24 09:56 250 MG Enteral Nutritional Formula 240 ml Q6HR GT 12/30/24 06:00 Ampicillin Sodium/ Sulbactam Sodium 3 gm/Sodium Chloride 100 ml @ 100 mls/hr Q6HR IV 12/30/24 12:00 12/30/24 12:32 100 MLS/HR Azithromycin 250 ml @ 125 mls/hr DAILY IV 12/30/24 13:00 objective General Appearance: Alert, Oriented X3, Cooperative, No acute distress, Lungs: Clear to auscultation, Normal air movement, Other Cardiovascular: Regular rate, Normal S1, Normal S2, No murmurs, Gallops, Rubs, Other Abdomen: Normal bowel sounds, Soft, No tenderness, No hepatospenomegaly, No masses, G-tube site shows some dried secretions laboratory and microbiology Laboratory Tests 12/30/24 06:24 Test 12/30/24 06:24 Range/Units Serum Glucose 101 74-106 mg/dL Problems(with codes): (1) Hiatal hernia with GERD and esophagitis (2) Gastrostomy site leak (3) Upper GI bleed (4) Abdominal pain (5) Sepsis Prognosis Plan G-tube appears to be in good place Continue local G-tube care Start G-tube feedings Dietary Evaluation Review Comments: 1 TPN Per phamacy to meet 75% of his needs 2.TF Glucerna @50ml/hr (72g pro, 1440kcal 966ml free water supporting 100% of pt's protein and energy needs 3. monitor lab and progress in 3-5 days Expected Outcomes/Goals: Adequate nutrition support. Plan discussed with: Other (Nurse [place]) INDIRA PARKS MD Dec 30, 2024 13:15
--- NOTE | 2024-12-30 13:45 | DVHPN2 ---
Progress Note - Dictate Date Seen: Dec 30, 2024 Medical Necessity Reason Pt with a Central, PICC or Fol: No vital signs Vital Sign Date Time Temp Pulse Resp B/P (MAP) Pulse Ox O2 Delivery O2 Flow Rate FiO2 12/30/24 10:24 94 20 100 12/30/24 10:18 Nasal Cannula 2.0 12/30/24 10:18 28 12/30/24 09:00 98.6 141/90 (107) 98.6 Total Intake and Output 12/29/24 12/29/24 12/30/24 15:00 23:00 07:00 Intake Total 0 ml 900 ml 969 ml Output Total 500 ml 1500 ml Balance 0 ml 400 ml -531 ml medications Current Medications Medications Dose Ordered Sig/Rhonda Route Start Time Stop Time Status Last Admin Dose Admin Ondansetron HCl 4 mg Q4HP PRN IV 12/27/24 07:45 Enoxaparin Sodium 40 mg DAILY SC 12/27/24 10:00 12/30/24 09:57 40 MG Albuterol 2.5 mg Q4HPRN PRN NEB 12/27/24 07:45 Cancel Albuterol 2.5 mg Q4HR NEB 12/27/24 10:00 12/30/24 10:18 2.5 MG Ipratropium [place] 0.5 mg Q4HPRN PRN NEB 12/27/24 07:45 Cancel Ipratropium [place] 0.5 mg Q4HR NEB 12/27/24 10:00 12/30/24 10:18 0.5 MG Pantoprazole Sodium 40 mg DAILY PO 12/27/24 10:00 Trazodone HCl 50 mg QHSP PRN GT 12/27/24 07:45 Amino Acids 0 ml @ 0 mls/hr PER PHARMACY IV 12/28/24 14:00 Sodium Chloride 1,000 ml @ 100 mls/hr Q10H IV 12/28/24 14:15 12/29/24 11:03 100 MLS/HR Diagnostic Test (Pha) 1 strip Q6HR 12/29/24 00:00 12/30/24 12:00 1 STRIP Insulin Human Regular FOLLOW SLIDING SCALE Q6HR SC 12/29/24 00:00 Dextrose 50 ml UD IV 12/28/24 22:00 Amino Acids 1,000 ml @ 41 mls/hr DAILY@2200 IV 12/28/24 22:00 12/29/24 21:45 41 MLS/HR Guaifenesin/ Dextromethorphan 10 ml Q6H PRN PO 12/28/24 17:45 Acetylcysteine 100 mg Q8HR NEB 12/29/24 06:00 12/30/24 06:01 100 MG Valproate Sodium 250 mg BID GT 12/29/24 22:00 12/30/24 09:56 250 MG Enteral Nutritional Formula 240 ml Q6HR GT 12/30/24 06:00 Ampicillin Sodium/ Sulbactam Sodium 3 gm/Sodium Chloride 100 ml @ 100 mls/hr Q6HR IV 12/30/24 12:00 12/30/24 12:32 100 MLS/HR Azithromycin 250 ml @ 125 mls/hr DAILY IV 12/30/24 13:00 laboratory and microbiology Laboratory Tests 12/30/24 06:24 Test 12/30/24 06:24 Range/Units Serum Glucose 101 74-106 mg/dL Assessment/Plan Impression Chronic respiratory failure Gasquet's disease Aspiration pneumonia Atelectasis Patient seen and examined Events Low oxygen requirements On 2 liters nasal cannula No acute events Labs and imaging reviewed Management Supplemental oxygen Titrate to maintain sats 90% or above Incentive spirometry Aspiration precautions Nasopharyngeal suctioning Continue antibiotics F/u cultures Bronchodilators Chest PT and mucolytics Monitor renal function Monitor electrolytes Supplement as needed No indication for bronchoscopy Goals of care to be addressed by family DVT prophylaxis Dietary Evaluation Review Comments: 1 TPN Per phamacy to meet 75% of his needs 2.TF Glucerna @50ml/hr (72g pro, 1440kcal 966ml free water supporting 100% of pt's protein and energy needs 3. monitor lab and progress in 3-5 days Expected Outcomes/Goals: Adequate nutrition support. Plan discussed with: Spouse CHARLOTTE VAIL MD Dec 30, 2024 13:45
[2024-12-30] MEDS: AZITHROMYCIN 500MG/ 250ML 250 ML IV SCH (13:50)
--- NOTE | 2024-12-30 16:06 | DVHPNRES ---
Progress Note Date Seen: Dec 30, 2024 Resident Creating Document: MARIA DOLORES RODRÍGUEZ RESIDENT Has the PT tested + for MRSA If YES, has PT been informed?: No Medical Necessity Reason Pt with a Central, PICC or Fol: No Subjective Review of Systems Mr. Cee is a 49-year-old male with past medical history of [place]'s disease, bed-bound, G-tube dependent, nonverbal, presents to the ED via EMS with abdominal pain, nausea, and vomiting for the past day. Per EMS, the patient's baseline includes productive cough, frequent yelling, grunting, and drooling. Nursing staff reports that he lives at home with his . reported G-tube was noted to be leaking clear fluid. Labs no notable for WBC 17.6 and lactic acid 2.3. Chest x-ray shows no acute intrathoracic process. CT abdomen and pelvis revealed peribronchial thickening consistent with reactive airway disease, distal esophageal wall thickening suggestive of esophagitis, non obstructing bilateral nephrolithiasis, and bladder calculi. No evidence of bowel obstruction or acute intra-abdominal pathology. Today, the patient was examined at the bedside, has less cough and secretions. Family was on the bedside, explained that the patient was having fevers, cough, increase of oral and abdominal that lead the visit to the [facility]. Vital signs and labs were reviewed, patient has not has fever since 12/28. Labs results showed leukocytosis WBC: 8.1 x10e3. Potassium 3.2meq/l, it was replenish, for that reason the patient will continue in telemetry until the potassium is corrected Lab: preliminay Cultures (urine, blood, sputum) result showed negative at 72 hrs and COVID and Influenza are negative. Sputum cultures are still pending, we re- order it again today. The patient shows clinical improvement today, with less oral/pulmonary secretions, patient had a bowel movement. Pulmonology is on board they do not recommend bronchoscopy. GI is onboard, they confirm G-tube is permeable and recommend initiate TP for G-tube. Nutrition consult recommended start: TF Jevity 1.2cal today. Doxyciclin and Zosyn were stopped. We iniciate the patient on Unysin and Azitromicyn. We follow up the progress of this patient closely. ROS: Constitutional: Bed-bound patient, non-verbal (family member was interviewed) Eyes: No: Pain, Vision change, Conjunctivae inflammation, Eyelid inflammation, Other, Redness ENT: No: Ear pain, Ear discharge, Nose pain, Nose discharge, Nose congestion, Mouth pain, Mouth swelling, Throat pain, Throat swelling, Other Respiratory: Cough, shortness of breath. Cardiovascular: No: Chest Pain, Palpitations, Orthopnea, Paroxysmal Noc. Dyspnea, Edema, Lt Headedness, Other Gastrointestinal: No: Diarrhea, Constipation, Melena, Hematochezia, Other Genitourinary: No Dysuria, No Frequency, No Incontinence, No Hematuria, No Retention, No Other Musculoskeletal: No: other, neck pain, shoulder pain, arm pain, back pain, hand pain, leg pain, foot pain Skin: No: Rash, Lesions, Jaundice, Bruising, Other Neurological: No: Weakness, Numbness, Incoordination, Change in speech, Confusion, Seizures, Other Allergies: NO KNOWN ALLERGIES. Objective vital signs Vital Sign Date Time Temp Pulse Resp B/P (MAP) Pulse Ox O2 Delivery O2 Flow Rate FiO2 12/30/24 13:54 99 Nasal Cannula* 2 28 12/30/24 13:54 98 18 12/30/24 09:00 98.6 141/90 (107) 98.6 Total Intake and Output 12/29/24 12/29/24 12/30/24 15:00 23:00 07:00 Intake Total 0 ml 900 ml 969 ml Output Total 500 ml 1500 ml Balance 0 ml 400 ml -531 ml medications Current Medications Medications Dose Ordered Sig/Rhonda Route Start Time Stop Time Status Last Admin Dose Admin Ondansetron HCl 4 mg Q4HP PRN IV 12/27/24 07:45 Enoxaparin Sodium 40 mg DAILY SC 12/27/24 10:00 12/30/24 09:57 40 MG Albuterol 2.5 mg Q4HPRN PRN NEB 12/27/24 07:45 Cancel Albuterol 2.5 mg Q4HR NEB 12/27/24 10:00 12/30/24 13:54 2.5 MG Ipratropium [place] 0.5 mg Q4HPRN PRN NEB 12/27/24 07:45 Cancel Ipratropium [place] 0.5 mg Q4HR NEB 12/27/24 10:00 12/30/24 13:54 0.5 MG Pantoprazole Sodium 40 mg DAILY PO 12/27/24 10:00 Trazodone HCl 50 mg QHSP PRN GT 12/27/24 07:45 Amino Acids 0 ml @ 0 mls/hr PER PHARMACY IV 12/28/24 14:00 Sodium Chloride 1,000 ml @ 100 mls/hr Q10H IV 12/28/24 14:15 12/29/24 11:03 100 MLS/HR Diagnostic Test (Pha) 1 strip Q6HR 12/29/24 00:00 12/30/24 12:00 1 STRIP Insulin Human Regular FOLLOW SLIDING SCALE Q6HR SC 12/29/24 00:00 Dextrose 50 ml UD IV 12/28/24 22:00 Amino Acids 1,000 ml @ 41 mls/hr DAILY@2200 IV 12/28/24 22:00 12/29/24 21:45 41 MLS/HR Guaifenesin/ Dextromethorphan 10 ml Q6H PRN PO 12/28/24 17:45 Acetylcysteine 100 mg Q8HR NEB 12/29/24 06:00 12/30/24 13:54 100 MG Valproate Sodium 250 mg BID GT 12/29/24 22:00 12/30/24 09:56 250 MG Enteral Nutritional Formula 240 ml Q6HR GT 12/30/24 06:00 Ampicillin Sodium/ Sulbactam Sodium 3 gm/Sodium Chloride 100 ml @ 100 mls/hr Q6HR IV 12/30/24 12:00 12/30/24 12:32 100 MLS/HR Azithromycin 250 ml @ 125 mls/hr DAILY IV 12/30/24 13:00 12/30/24 13:50 125 MLS/HR Examination General Appearance: Adult male, bed-bound, nonverbal, appears ill and uncomfortable. HEENT: Atraumatic, Mucous membr. moist/pink Respiratory: Productive cough, abundant white colored secretions, bilateral lung crackles. Cardiovascular: Regular rate, Normal S1, Normal S2 Abdominal: Normal bowel sounds, Soft, depressive, mildly distended, tenderness to palpation in epigastric region, no rebound or guarding. G-tube in place. Extremities: No clubbing, No cyanosis, with leg compressive device. Skin: No rashes, No breakdown Arlin -anal area: perianal ulcer Grade I Neuro: Nonverbal, follow commands with eye (blinking) laboratory and microbiology Laboratory Tests 12/30/24 06:24 Test 12/30/24 06:24 Range/Units Serum Glucose 101 74-106 mg/dL Microbiology Date/Time Source Procedure Growth Status 12/28/24 11:55 Nose MRSA Screen - Final Complete 12/27/24 08:00 Voided Urine Urine Culture - Final Complete 12/27/24 03:27 Blood Blood Culture - Preliminary NO GROWTH AFTER 72 HOURS OF INCUBATION. Resulted Problem List/Assessment/Plan Problem List/Assessment/Plan Assessment/Plan # Rule out Sepsis * Admit to telemetry unit * IV fluid resuscitation * Pancultures * Empiric antibiotics * Leukocitosis' * Tachycardia * Fever Start: Zocyn IV Doxyciclin 100mg IV #Possible aspiration pneumonia Start: Zocyn 3.375g Doxyciclin 100mg # ruled out Covid and influenza * Azithromycin and ceftriaxone * Sputum culture * Repeat X-ray in the morning * DuoNeb treatment * COVID/Influeza negative # Acute abdominal pain # Esophagitis # Nausea and vomiting # calculus in the kidney # calculus in the bladder * PPI * IV fluid * Antiemetics Stopped: Flagyl # Clifton's disease # bed confinement status Physical therapy. # nonverbal Continue with home medication #Arlin-anal ulcer grade I -wound consult DVT/PPI prophylaxis Goals of care discussed, more than 35 min spend with the patient. Case discussed with Dr. Bartlett Code status: Full code PCP: family member does not remember, we will ask again tomorrow. Medical plan discussed with patient, family member sister in law (Ginger) and RN. Patient's relative agrees with the plan. Plan discussed with: Patient, Other My Orders My Orders Orders - MARIA DOLORES RODRÍGUEZ RESIDENT Procedure Category Date Status Time Respiratory Culture ROSS 12/30/24 Uncollected W/ Gs 11:04 Complete Blood Count LAB 12/31/24 Verified 04:00 Comprehensive LAB 12/31/24 Verified Metabolic Panel 04:00 Discontinue Tele ELIZABETH 12/30/24 In Process 11:04 Ampicillin & PHA 12/30/24 In Process Sulbactam Sodium 12:00 Azithromycin 500mg/ PHA 12/30/24 In Process 250ml (Zithromax 50 13:00 Dietary Evaluation Review Comments: 1 TPN Per phamacy to meet 75% of his needs 2.TF Glucerna @50ml/hr (72g pro, 1440kcal 966ml free water supporting 100% of pt's protein and energy needs 3. monitor lab and progress in 3-5 days Expected Outcomes/Goals: Adequate nutrition support. MARIA DOLORES RODRÍGUEZ RESIDENT Dec 30, 2024 16:06
[2024-12-30] MEDS: Jevity 1.2 Cal/Fiber 1 Liter GT SCH (23:33)
[2024-12-31] VITALS (18 sets, daily range): BP systolic 126–140; BP diastolic 77–105; PULSE 80–99; RESP 18–22; TEMP 96.1–100.5; O2SAT 93–100
[2024-12-31 04:54] LABS: Hematocrit 37.9 % (41.0-53.0); Hemoglobin 12.9 g/dL (13.5-17.5); Mean Corpuscular Hemoglobin 29.4 pg (28.0-32.0); Mean Corpuscular Volume 86.9 fL (80.0-100.0); Nucleated Red Blood Cells % 0.0 %
[2024-12-31 05:13] LABS: Alanine Aminotransferase 17 U/L (7-40); Albumin 3.6 g/dL (3.2-4.8); Alkaline Phosphatase 71 U/L (46-116); Anion Gap 8 (5-15); BUN/Creatinine Ratio 22.9 (10.0-20.0); Carbon Dioxide 24 mmol/L (20-31); Chloride 104 mmol/L (98-107); Glucose 94 mg/dL (74-106); Sodium 136 mmol/L (136-145); Total Protein 6.0 g/dL (5.7-8.2)
[2024-12-31 05:14] LABS: Bilirubin, Total 0.4 mg/dL (0.2-1.0); Blood Urea Nitrogen 8 mg/dL (9-23); Calcium 8.4 mg/dL (8.7-10.4); Potassium 3.3 mmol/L (3.5-5.1)
[2024-12-31] MEDS: POTASSIUM CHL 20MEQ/100ML 100 ML IV ONE (07:24)
[2024-12-31] MEDS: PANTOPRAZOLE 40 MG/10 ML VIAL INJ IV SCH (10:10)
[2024-12-31] MEDS ORDERED: AUG875T PO (10:55)
[2024-12-31] MEDS ORDERED: AZIT500T66 PO (10:55)
--- NOTE | 2024-12-31 11:00 | DVHDSRES ---
Discharge Summary Date of Admission Resident Creating Document: MARIA DOLORES RODRÍGUEZ RESIDENT Dec 27, 2024 at 07:39 Date of Discharge: Dec 31, 2024 Admitting Diagnosis Possible aspiration pneumonia, Abdominal pain Wounds: Arlin-anal ulcer grade 1 Labs/Diagnostic Data: Laboratory Results Test 12/31/24 05:00 12/31/24 04:30 12/28/24 15:10 12/27/24 08:30 POC Glucose 100 mg/dl (70-106) White Blood Count 7.0 10^3/uL (4.4-10.8) Red Blood Count 4.37 10^6/uL (4.5-5.90) Hemoglobin 12.9 g/dL (13.5-17.5) Hematocrit 37.9 % (41.0-53.0) Mean Corpuscular Volume 86.9 fL (80.0-100.0) Mean Corpuscular Hemoglobin 29.4 pg (28.0-32.0) Mean Corpuscular Hemoglobin Concent 33.9 g/dL (32.0-36.0) Red Cell Distribution Width 14.0 % (11.8-14.3) Platelet Count 284 10^3/uL (140-450) Mean Platelet Volume 7.9 fL (6.9-10.8) Neutrophils (%) (Auto) 56.5 % (37.0-80.0) Lymphocytes (%) (Auto) 25.9 % (10.0-50.0) Monocytes (%) (Auto) 14.8 % (0.0-12.0) Eosinophils (%) (Auto) 2.1 % (0.0-7.0) Basophils (%) (Auto) 0.7 % (0.0-2.0) Neutrophils # (Auto) 3.9 10 ^3/uL (1.6-8.6) Lymphocytes # (Auto) 1.8 10 ^3/uL (0.4-5.4) Monocytes # (Auto) 1.0 10 ^3/uL (0-1.3) Eosinophils # (Auto) 0.1 10 ^3/uL (0-0.8) Basophils # (Auto) 0 10 ^3/uL (0-0.2) Nucleated Red Blood Cells 0.0 % Sodium Level 136 mmol/L (136-145) Potassium Level 3.3 mmol/L (3.5-5.1) Chloride Level 104 mmol/L (98-107) Carbon Dioxide Level 24 mmol/L (20-31) Anion Gap 8 (5-15) Blood Urea Nitrogen 8 mg/dL (9-23) Creatinine 0.35 mg/dL (0.700-1.30) Glomerular Filtration Rate Calc 138 mL/min (>90) Estimated GFR () 342 mL/min Estimated GFR (Non- 282 mL/min BUN/Creatinine Ratio 22.9 (10.0-20.0) Serum Glucose 94 mg/dL (74-106) Calcium Level 8.4 mg/dL (8.7-10.4) Phosphorus Level 2.6 mg/dL (2.4-5.1) Magnesium Level 1.9 mg/dL (1.6-2.6) Total Bilirubin 0.4 mg/dL (0.2-1.0) Aspartate Amino Transferase (AST) 18 U/L (13-40) Alanine Aminotransferase (ALT) 17 U/L (7-40) Alkaline Phosphatase 71 U/L (46-116) Total Protein 6.0 g/dL (5.7-8.2) Albumin 3.6 g/dL (3.2-4.8) Lactic Acid Level 0.8 mmol/L (0.4-2.0) Influenza Type A Antigen Negative (Negative) Influenza Type B Antigen Negative (Negative) SARS-CoV-2 Antigen (Rapid) Negative (NEGATIVE) Test 12/27/24 08:00 12/27/24 03:27 Urine Color Yellow (Yellow) Urine Clarity Turbid (Clear) Urine pH 7.0 (5.0-9.0) Urine Specific [place] 1.020 (1.001-1.035) Urine Protein Negative (Negative) Urine Ketones Negative (Negative) Urine Blood Negative /uL (Negative) Urine Nitrite Negative (Negative) Urine Bilirubin Negative (Negative) Urine Urobilinogen Normal mg/dL (Negative) Urine Leukocyte Esterase Negative /uL (Negative) Urine RBC 7 /hpf (0 - 3) Urine Microscopic WBC 8 /HPF (0-3) Urine Squamous Epithelial Cells Few /hpf (<5) Urine Bacteria None seen /hpf (None Seen) Urine Mucus Few (None Seen) Urine Yeast (Budding) Moderate /hpf (None Seen) Urine Glucose Normal mg/dL (Normal) Lipase 36 U/L (12-53) Other Laboratory Tests 12/31/24 04:30 Brief Hx & Hospital Course: Mr. Cee is a 49-year-old male with past medical history of Crawford's disease, bed-bound, G-tube dependent, nonverbal, presents to the ED via EMS with abdominal pain, nausea, and vomiting for the past day. Per EMS, the patient's baseline includes productive cough, frequent yelling, grunting, and drooling. Nursing staff reports that he lives at home with his . reported G-tube was noted to be leaking clear fluid. Labs no notable for WBC 17.6 and lactic acid 2.3. Chest x-ray shows no acute intrathoracic process. CT abdomen and pelvis revealed peribronchial thickening consistent with reactive airway disease, distal esophageal wall thickening suggestive of esophagitis, non obstructing bilateral nephrolithiasis, and bladder calculi. No evidence of bowel obstruction or acute intra-abdominal pathology. During his admission the patient was examined at the bedside, Respiratory therapy was initiated for nebulization and oral sputum aspiration, after starting nebulizations the patient had less cough and secretions. Family was interviewed on the bedside, family member explained that the patient was having fevers, cough, increase of oral sputum secretions and he was habing abdominal pain and leaking from the G- tube that lead the visit to the [facility]. Vital signs and labs showed leukocytosis on admission WBC: 14 x10e3. zzevery day with slow improvement of the WBC count from 14 x10e3 to 7.0 x10e3, patient has not have fever since 12/28. Labs results showed improvement on leukocytosis WBC: 7.0 x10e3. Potassium 3.3meq/l, it was replenish. Lab: Cultures (urine, blood) result showed negative at 72 hrs and COVID and Influenza were negative. The patient showed clinical improvement with less oral/sputum secretions, better lung expasion and less lung crackles, the patient had a bowel movement, there is no fever or SOB. Pulmonology was on board, they did not recommend bronchoscopy. GI was onboard, they confirmed that G-tube was permeable and recommend initiate TP for G-tube. Nutrition consult recommended started: TF Jevity 1.2cal today. Doxyciclin and Zosyn were stopped. We initiated the patient on Unysin and Azitromicyn. Today, vital signs within normal limits and labs were reviewed and are not clinical significant. The patient has shown clinical significant improvement and will be discharged today. Social service consult was placed for Home [facility] for G-tube care. Discharge plan: Discharge to home [facility] for G-tube Care and wound care. Albuterol nebulizations prn NAC nebulizations qd x 7 days Augmentin 875/325mg bid via G-tube for 7 days Azitromicyn 500mg qd via G-tube for 7 days F/u with PCP in one week Continue home meds ROS: Constitutional: Bed-bound patient, non-verbal (family member was interviewed) Eyes: No: Pain, Vision change, Conjunctivae inflammation, Eyelid inflammation, Other, Redness ENT: No: Ear pain, Ear discharge, Nose pain, Nose discharge, Nose congestion, Mouth pain, Mouth swelling, Throat pain, Throat swelling, Other Respiratory: No shortness of breath Cardiovascular: No: Chest Pain, Palpitations, Orthopnea, Paroxysmal Noc. Dyspnea, Edema, Lt Headedness, Other Gastrointestinal: No: Diarrhea, Constipation, Melena, Hematochezia, Other Genitourinary: No Dysuria, No Frequency, No Incontinence, No Hematuria, No Retention, No Other Musculoskeletal: No: other, neck pain, shoulder pain, arm pain, back pain, hand pain, leg pain, foot pain Skin: No: Rash, Lesions, Jaundice, Bruising, Other Neurological: No: Weakness, Numbness, Incoordination, Change in speech, Confusion, Seizures, Other Allergies: NO KNOWN ALLERGIES. Physical exam General Appearance: Adult male, bed-bound, nonverbal, appears ill and uncomfortable. HEENT: Atraumatic, Mucous membr. moist/pink Respiratory: Productive cough, abundant white colored secretions, bilateral lung crackles. Cardiovascular: Regular rate, Normal S1, Normal S2 Abdominal: Normal bowel sounds, Soft, depressive, non distended, no tenderness to palpatio, no rebound or guarding. G-tube in place, no leaking. Extremities: No clubbing, No cyanosis, with leg compressive device. Skin: No rashes, No breakdown Arlin-anal area: perianal ulcer Grade I Neuro: Nonverbal, follow commands with eye (blinking) Assessments during admission # Sepsis due to aspiration pneumonia #Aspiration pneumonia # ruled out Covid and influenza # Acute abdominal pain likely due to GERD #GERD # Esophagitis #Hiatal hernia # Nephrolithiasis # calculus in the bladder # Crawford's disease # bed confinement status #Arlin-anal ulcer grade I Goals of care discussed, more than 35 min spend with the patient. Case discussed with Dr. Batrlett Code status: Full code PCP: family member does not remember, we will ask again tomorrow. Medical plan discussed with patient, family member sister in law (Ginger) and RN. Patient's relative agrees with the discharge plan. Consults/Reason for consult GI: For G-tube leaking Pulmonology: for aspiration pneumonia Respiratory therapy: for nebulizations and breathing therapy vice president of consulting services: for Homehealth for g tube care Operations or Procedures CHEST RADIOGRAPH Indication: PEG tube not working Technique: Single frontal view of the chest was obtained Comparison: None FINDINGS: Lines and Tubes: Gastrostomy tube. Injection of 60 mL of Gastrografin through the gastrostomy tube demonstrated opacification of the stomach proximal small bowel. No free contrast in the peritoneum was identified. Lungs: No focal consolidation. Pleura: No effusion. No pneumothorax. Cardiomediastinal contours: Unremarkable Bones: No acute osseous abnormality. IMPRESSION: 1. Contrast noted in the stomach and proximal small bowel consistent with appropriate positioning gastrostomy tube. : CT CT AB PEL WO CON-NO ORAL OR IV HISTORY: abd pain COMPARISON: CT CT AB PEL WO CON-NO ORAL OR IV on DOS: 09/20/23, CT CT AB PEL WO CON-NO ORAL OR IV on DOS: 10/20/22 TECHNIQUE: Helical CT images of the abdomen and pelvis were performed without IV contrast. Sagittal and coronal reformatted images were obtained. This CT exam was performed using one or more of the following dose reduction techniques: Automated exposure control, adjustment of the mA and/or kv according to patient size, or the use of iterative reconstruction techniques. Radiation Dose: Abdomen/Pelvis: CTDIvol 17.02 mGy, DLP 1126.91 mGy*cm. FINDINGS: CT abdomen: There is moderate peribronchial thickening in the lung bases. The heart is not enlarged. There is distal esophageal wall thickening. There are bilateral nonobstructing renal calculi. The noncontrast liver, spleen, gallbladder, pancreas, and adrenal glands are unremarkable. Of colon is interposed anterior to the liver. No abdominal aortic aneurysm. PEG tube is in place. CT pelvis: No abnormal bowel dilatation, free air, or free fluid. The appendix contains an appendicolith and does not appear dilated or inflamed. There are small calculi urinary bladder lumen. The prostate is upper limits of normal in size. There is a small fatty left inguinal indirect hernia. There is moderate lumbar degenerative disc disease. There is mild osteoarthritis of the hips. IMPRESSION: 1. Peribronchial thickening in the lung bases consistent with reactive airways disease. 2. Distal esophageal wall thickening suggestive of esophagitis. PEG tube re- identified. 3. Nonobstructing bilateral nephrolithiasis. There are also calculi in the dependent portion of the urinary bladder. 4. No evidence of bowel obstruction, acute appendicitis, or other acute process in the abdomen or pelvis. Condition at Discharge: Stable Final Diagnosis/Problems List Sepsis likely due to aspiration pneumonia # ruled out Covid and influenza # Acute abdominal pain, likely due to GERD #GERD # Esophagitis #hiatal hernia # calculus in the kidney # calculus in the bladder # Crawford's disease # bed confinement status # nonverbal #Arlin-anal ulcer grade I Discharge Disposition: Home with Health Services SNF Discharge Will this Physician continue t: No Discharge Instruct/Medications Diet: See Comment Diet comment: TP formula throught the G-Tube Activity: See Comment Activity comment: Bed confinement status Follow Up/Referral: F/U with PCP in one week Medications: Guaifenesin N-Acetylcystein (NAC) Augmentin 875/325 mg via G-Tube for 7 days Azitromicyn 500mg via G-Tube for 7 days Scheduled Amoxicillin & Pot Clavulanate (Augmentin Tablet), 875 MG PO BID Azithromycin (Azithromycin), 1 TAB PO DAILY Clotrimazole (Topical) (Clotrimazole Anti-Fungal), 1 GM TOP BID, (Reported) Dextromethorphan-Guaifenesin (Robitussin-Dm), 10 ML GT QPM Divalproex Sodium (Divalproex Sodium), 250 MG PO BID, (Reported) Guaifenesin (Guaifenesin), 200 MG PO DAILY Nutritional Supplements (Fibersource Hn), 20 ML TID, (Reported) Pantoprazole Sodium Sesquihydr (Pantoprazole Sodium), 1 TAB PO DAILY, (Reported) Tetrabenazine (Tetrabenazine), 25 MG GT BID, (Reported) Scheduled PRN Albuterol Sulfate (Ventolin Mdi), 90 MCG IN DAILY PRN Trazodone Hcl (Trazodone Hcl), 1 TAB GT QHSP PRN for insomnia, (Reported) Miscellaneous Medications Haloperidol (Haldol), 2 MG GT, (Reported) Sertraline HCl (Sertraline Hydrochloride), 25 MG GT, (Reported) Discharge Statement: "Patient was advised to return to the ER or call 911 if any headaches, dizziness, shortness of breath, chest pain, abdominal pain, bleeding, fevers, or worsening of medical condition. Patient was counseled about treatment plan, medications, possible side effects, patientverbalized understanding. All questions were answered to the best of my ability. This discharge took greater then 30 minutes in planning, reviewing documentation, counseling the patient, and discussing with other team members." ASSESSMENT ASSESSMENT Assessment Sepsis likely due to aspiration pneumonia # ruled out Covid and influenza # Acute abdominal pain, likely due to GERD #GERD # Esophagitis #hiatal hernia # calculus in the kidney # calculus in the bladder # Crawford's disease # bed confinement status # nonverbal #Arlin-anal ulcer grade I MARIA DOLORES RODRÍGUEZ RESIDENT Dec 31, 2024 11:00
[2024-12-31] MEDS ORDERED: DEXT1SYP9 GT (11:46)
[2024-12-31] MEDS ORDERED: GUAI200T6 PO (11:46)
[2024-12-31] MEDS ORDERED: ALBUAER3 IN (11:50)
--- NOTE | 2024-12-31 14:14 | DVHPN2 ---
Progress Note - Dictate Date Seen: Dec 31, 2024 Has the PT tested + for MRSA If YES, has PT been informed?: No Medical Necessity Reason Pt with a Central, PICC or Fol: No vital signs Vital Sign Date Time Temp Pulse Resp B/P (MAP) Pulse Ox O2 Delivery O2 Flow Rate FiO2 12/31/24 10:28 89 18 98 12/31/24 10:16 Nasal Cannula* 2 28 12/31/24 09:00 96.1 127/95 (106) 96.1 Total Intake and Output 12/30/24 12/30/24 12/31/24 15:00 23:00 07:00 Intake Total 300 ml 1350 ml 1200 ml Output Total 575 ml 1000 ml Balance 300 ml 775 ml 200 ml medications Current Medications Medications Dose Ordered Sig/Rhonda Route Start Time Stop Time Status Last Admin Dose Admin Ondansetron HCl 4 mg Q4HP PRN IV 12/27/24 07:45 Enoxaparin Sodium 40 mg DAILY SC 12/27/24 10:00 12/31/24 10:10 40 MG Albuterol 2.5 mg Q4HPRN PRN NEB 12/27/24 07:45 Cancel Albuterol 2.5 mg Q4HR NEB 12/27/24 10:00 12/31/24 10:16 2.5 MG Ipratropium [place] 0.5 mg Q4HPRN PRN NEB 12/27/24 07:45 Cancel Ipratropium [place] 0.5 mg Q4HR NEB 12/27/24 10:00 12/31/24 10:16 0.5 MG Trazodone HCl 50 mg QHSP PRN GT 12/27/24 07:45 Amino Acids 0 ml @ 0 mls/hr PER PHARMACY IV 12/28/24 14:00 Sodium Chloride 1,000 ml @ 100 mls/hr Q10H IV 12/28/24 14:15 12/31/24 02:15 100 MLS/HR Diagnostic Test (Pha) 1 strip Q6HR 12/29/24 00:00 12/31/24 12:16 1 STRIP Insulin Human Regular FOLLOW SLIDING SCALE Q6HR SC 12/29/24 00:00 Dextrose 50 ml UD IV 12/28/24 22:00 Amino Acids 1,000 ml @ 41 mls/hr DAILY@2200 IV 12/28/24 22:00 12/29/24 21:45 41 MLS/HR Guaifenesin/ Dextromethorphan 10 ml Q6H PRN PO 12/28/24 17:45 Acetylcysteine 100 mg Q8HR NEB 12/29/24 06:00 12/31/24 05:36 100 MG Valproate Sodium 250 mg BID GT 12/29/24 22:00 12/31/24 10:09 250 MG Enteral Nutritional Formula 240 ml Q6HR GT 12/30/24 06:00 12/31/24 12:17 240 ML Ampicillin Sodium/ Sulbactam Sodium 3 gm/Sodium Chloride 100 ml @ 100 mls/hr Q6HR IV 12/30/24 12:00 12/31/24 12:17 100 MLS/HR Azithromycin 250 ml @ 125 mls/hr DAILY IV 12/30/24 13:00 12/31/24 10:09 125 MLS/HR Enteral Nutritional Formula 1,000 ml 65ML/HR GT 12/30/24 15:15 12/30/24 23:33 1,000 ML Pantoprazole Sodium 40 mg DAILY IV 12/31/24 10:00 12/31/24 10:10 40 MG laboratory and microbiology Laboratory Tests 12/31/24 04:30 Test 12/31/24 04:30 Range/Units Serum Glucose 94 74-106 mg/dL Assessment/Plan Impression Chronic respiratory failure Ford's disease Aspiration pneumonia Atelectasis Patient seen and examined Events Low oxygen requirements On 2 liters nasal cannula No distress Labs and imaging reviewed Management Supplemental oxygen Titrate to maintain sats 90% or above Incentive spirometry Aspiration precautions Nasopharyngeal suctioning Continue antibiotics F/u cultures Bronchodilators Chest PT and mucolytics Monitor renal function Monitor electrolytes Supplement as needed No indication for bronchoscopy Disposition per primary DVT prophylaxis Dietary Evaluation Review Comments: 1 TPN Per phamacy to meet 75% of his needs 2.TF Glucerna @50ml/hr (72g pro, 1440kcal 966ml free water supporting 100% of pt's protein and energy needs 3. monitor lab and progress in 3-5 days Expected Outcomes/Goals: Adequate nutrition support. Plan discussed with: Patient CHARLOTTE VAIL MD Dec 31, 2024 14:14
[2024-12-31] MEDS: POTASSIUM PHOSPHATE 22 MEQ in SODIUM CHL 0.9% 100 ML IV ONE (15:30)
[2024-12-31] MEDS ORDERED: AMINO ACID INFUSION IN D10W 1,000 ML IV SCH (22:00)
--- NOTE | 2024-12-31 22:24 | DVHPN2 ---
Progress Note - Dictate Date Seen: Dec 31, 2024 Has the PT tested + for MRSA If YES, has PT been informed?: No Medical Necessity Reason Pt with a Central, PICC or Fol: No Subjective No new complaints Patient resting comfortably Gastrostomy tube placement x-ray normal vital signs Vital Sign Date Time Temp Pulse Resp B/P (MAP) Pulse Ox O2 Delivery O2 Flow Rate FiO2 12/31/24 18:15 91 18 100 12/31/24 18:09 Nasal Cannula 2.0 12/31/24 18:09 28 12/31/24 17:45 98.3 98.3 12/31/24 17:00 129/77 (94) Total Intake and Output 12/30/24 12/30/24 12/31/24 15:00 23:00 07:00 Intake Total 300 ml 1350 ml 1200 ml Output Total 575 ml 1000 ml Balance 300 ml 775 ml 200 ml medications Current Medications Medications Dose Ordered Sig/Rhonda Route Start Time Stop Time Status Last Admin Dose Admin Ondansetron HCl 4 mg Q4HP PRN IV 12/27/24 07:45 Enoxaparin Sodium 40 mg DAILY SC 12/27/24 10:00 12/31/24 10:10 40 MG Albuterol 2.5 mg Q4HPRN PRN NEB 12/27/24 07:45 Cancel Albuterol 2.5 mg Q4HR NEB 12/27/24 10:00 12/31/24 18:09 2.5 MG Ipratropium [place] 0.5 mg Q4HPRN PRN NEB 12/27/24 07:45 Cancel Ipratropium [place] 0.5 mg Q4HR NEB 12/27/24 10:00 12/31/24 18:09 0.5 MG Trazodone HCl 50 mg QHSP PRN GT 12/27/24 07:45 Amino Acids 0 ml @ 0 mls/hr PER PHARMACY IV 12/28/24 14:00 Sodium Chloride 1,000 ml @ 100 mls/hr Q10H IV 12/28/24 14:15 12/31/24 02:15 100 MLS/HR Diagnostic Test (Pha) 1 strip Q6HR 12/29/24 00:00 12/31/24 18:32 1 STRIP Insulin Human Regular FOLLOW SLIDING SCALE Q6HR SC 12/29/24 00:00 Dextrose 50 ml UD IV 12/28/24 22:00 Guaifenesin/ Dextromethorphan 10 ml Q6H PRN PO 12/28/24 17:45 Acetylcysteine 100 mg Q8HR NEB 12/29/24 06:00 12/31/24 14:18 100 MG Valproate Sodium 250 mg BID GT 12/29/24 22:00 12/31/24 10:09 250 MG Enteral Nutritional Formula 240 ml Q6HR GT 12/30/24 06:00 12/31/24 18:09 240 ML Ampicillin Sodium/ Sulbactam Sodium 3 gm/Sodium Chloride 100 ml @ 100 mls/hr Q6HR IV 12/30/24 12:00 12/31/24 18:00 100 MLS/HR Azithromycin 250 ml @ 125 mls/hr DAILY IV 12/30/24 13:00 12/31/24 10:09 125 MLS/HR Enteral Nutritional Formula 1,000 ml 65ML/HR GT 12/30/24 15:15 12/30/24 23:33 1,000 ML Pantoprazole Sodium 40 mg DAILY IV 12/31/24 10:00 12/31/24 10:10 40 MG Amino Acids/ Electrolytes/ Dextrose 1,000 ml @ 41 mls/hr DAILY@2200 IV 12/31/24 22:00 objective General Appearance: Alert, Oriented X3, Cooperative, No acute distress, Lungs: Clear to auscultation, Normal air movement, Other Cardiovascular: Regular rate, Normal S1, Normal S2, No murmurs, Gallops, Rubs, Other Abdomen: Normal bowel sounds, Soft, No tenderness, No hepatospenomegaly, No masses, G-tube site shows some dried secretions laboratory and microbiology Laboratory Tests 12/31/24 04:30 Test 12/31/24 04:30 Range/Units Serum Glucose 94 74-106 mg/dL Problems(with codes): (1) Hiatal hernia with GERD and esophagitis (2) Gastrostomy site leak (3) Vomiting (4) Abdominal pain (5) Sepsis (6) Leukocytosis (7) Huntingtons chorea Prognosis Plan G-tube appears to be in good place Continue local G-tube care Advance G-tube feedings Discharge planning is in progress Dietary Evaluation Review Comments: 1 TPN Per phamacy to meet 75% of his needs 2.TF Glucerna @50ml/hr (72g pro, 1440kcal 966ml free water supporting 100% of pt's protein and energy needs 3. monitor lab and progress in 3-5 days Expected Outcomes/Goals: Adequate nutrition support. Plan discussed with: Other (Nurse) INDIRA PARKS MD Dec 31, 2024 22:24
== END 2024-12-31 21:47 | disposition home health service (06) | DRG 871 ==
LOC: EDBD 02:55 → ER 02:55 → OVERFLOW 07:39 → TELE-CENTR 18:20
PROVIDERS: ADMIT Student in an Organized Health Care Education/Training Program; ATTEND Emergency Medicine
PROC: 05HA33Z Insertion of Infusion Device into Left Brachial Vein, Percutaneous Approach (ICD-10-PCS; principal; 2024-12-27)
PROC: B54NZZA Ultrasonography of Left Upper Extremity Veins, Guidance (ICD-10-PCS; 2024-12-27)
DX: A41.9 Sepsis, unspecified organism (principal); J18.9 Pneumonia, unspecified organism; J69.0 Pneumonitis due to inhalation of food and vomit; K62.6 Ulcer of anus and rectum; G10 Huntington's disease; J96.10 Chronic respiratory failure, unspecified whether with hypoxia or hypercapnia; K94.23 Gastrostomy malfunction; J98.11 Atelectasis; J45.909 Unspecified asthma, uncomplicated; Z20.822 Contact with and (suspected) exposure to COVID-19; N20.0 Calculus of kidney; N21.0 Calculus in bladder; K21.00 Gastro-esophageal reflux disease with esophagitis, without bleeding; K44.9 Diaphragmatic hernia without obstruction or gangrene; Z74.01 Bed confinement status; Z79.899 Other long term (current) drug therapy; Y84.8 Other medical procedures as the cause of abnormal reaction of the patient, or of later complication, without mention of misadventure at the time of the procedure
CPT/HCPCS: 31720; 36415; 71045; 74018; 74176; 80053; 80069; 81001; 82962; 83605; 83690; 83735; 84100; 84132; 85025; 87040; 87070; 87081; 87086; 87205; 87426; 87804; 93005; 94640; 96365; 99291; G0378; J0131; J2470; J2543; J3480; J3490; J7060